=== PATIENT | female | born 1940 | race Caucasian/White ===

== ENCOUNTER 2019-06-07 08:05 | Outpatient (RCR) | payer MEDICARE, OTHER, SELFPAY ==
[2019-06-07 16:01] LABS: Basophils % 0.4 %; Eosinophils # 0.5 10^3/uL (0.0-0.8); Eosinophils % 5.5 %; Hemoglobin 11.3 g/dL (11.5-15.3); Lymphocytes # 2.5 10^3/uL (0.8-4.8); Lymphocytes % 27.7 %; Mean Corpuscular HGB Conc 31.4 g/dL (30.0-36.0); Mean Corpuscular Hemoglobin 27.9 pg (28.0-34.0); Mean Corpuscular Volume 88.9 fL (81-99); Mean Platelet Volume 11.3 fL (7.4-10.4); Monocytes # 0.8 10^3/uL (0.2-0.9); Monocytes % 8.9 %; Neutrophils % 56.3 %; Nucleated Red Blood Cells % 0 %; Platelet Count 250 10^3/cmm (130-400); Red Blood Count 4.05 10^6/uL (4.1-5.3); Red Cell Distribution Width 13.8 % (12.1-15.1); White Blood Count 8.9 10^3/uL (4.0-10.0)
[2019-06-07 22:49] LABS: Alanine Aminotransferase 17 U/L (0-33); Albumin Level 3.9 g/dL (3.5-5.2); Alkaline Phosphatase 60 IU/L (35-105); Aspartate Amino Transferase 23 U/L (0-32); Blood Urea Nitrogen 14 mg/dL (8-23); Calcium 9.7 mg/Dl (8.8-10.2); Carbon Dioxide 25 mmol/L (22-29); Chloride 98 mmol/L (98-107); Globulin 3.5 g/dL (1.3-4.6); Glucose 234 mg/dL (74-106); Sodium 139 mmol/L (136-145); Total Bilirubin 0.5 mg/dL (0.15-1.2); Total Protein 7.4 g/dL (6.6-8.7)
== END 2019-07-06 23:59 | disposition home or self-care (01) ==
LOC: ONCMED 08:05
PROVIDERS: Family Provider Family Medicine; PCP Family Medicine; Visit Provider Nurse Practitioner
DX: C79.51 Secondary malignant neoplasm of bone (principal); Z85.3 Personal history of malignant neoplasm of breast; I10 Essential (primary) hypertension; E11.9 Type 2 diabetes mellitus without complications; Z79.84 Long term (current) use of oral hypoglycemic drugs; Z79.818 Long term (current) use of other agents affecting estrogen receptors and estrogen levels; Z90.12 Acquired absence of left breast and nipple; Z92.3 Personal history of irradiation; Z92.21 Personal history of antineoplastic chemotherapy
CPT/HCPCS: 80053; 85025; 86300

== ENCOUNTER 2019-06-11 08:20 | Outpatient (RCR) | payer MEDICARE, OTHER, SELFPAY ==
--- NOTE | 2019-06-11 09:18 | ONC FU_ITS ---
Dr. Sales Patient Follow-Up Note Patient: Jessenia Navarro Unit #: [id number]: 1940 Dicatated By: Mo Sales M.D.Date of Visit:Jun 11, 2019 Onc Med Follow-up/Prog Note Chief Complaint: Breast cancer. History of Present Illness: This is a 78 year-old woman with metastatic breast cancer, ER/ID positive and HER-2/jesu negative. 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 Pathology at that time showed grade 2 infiltrating ductal carcinoma with the largest tumor measuring 1.3 cm. It was reported to be ER positive/ID negative and HER-2/jesu negative. There was no involvement in 16 axillary lymph nodes. She did not receive any adjuvant therapy. She had presented in March 2010 with an erythematous nodule in the upper left chest wall. Excisional biopsy did confirm metastatic adenocarcinoma consistent with metastatic breast cancer. That tumor was ER positive at 93% and ID positive at 100%. It was negative for overexpression of HER-2/jesu by IHC and by FISH. A staging PET/CT showed multiple sites of bone involvement. She was then started on hormonal therapy, initially with Aromasin. She tolerated it very poorly. As of May 2010 her treatment was changed to tamoxifen. She has had a very good response by followup bone scan. She had been tolerating very well, but in September 2013 she came in with a generalized skin eruption which clinically appeared consistent with hypersensitivity reaction to the tamoxifen, and at that point it was discontinued. As of August 2013 her hormonal treatment was changed to anastrazole. She had presented to the emergency room in December 2014 with numbness on her right side. At that time there was evidence of facial droop and she also had reported impaired speech. She had been having symptoms for several days. Her blood pressure was significantly elevated. A noncontrast head CT at that time showed no acute findings. At that time it was suspected that she had a TIA and/or possible radiculopathy. There did not appear to be any indication for hospital admission. She started amlodipine for the hypertension and she also started low-dose aspirin. I was contacted at the time, and I also did recommend that she stop the anastrozole. During follow-up the symptoms did resolve. Her subsequent evaluation included echocardiogram which showed mild diffuse hypokinesis of the septum and the anteroseptal segments, but with normal left ventricular ejection fraction at 50-55%. Carotid artery duplex showed minimal scattered plaques and intimal thickening bilaterally with no significant stenosis. MRI of the brain showed a remote lacunes in the left thalamus and left caudate nucleus with mild age-related atrophy and small vessel ischemic changes. 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 There was no evidence of metastatic disease. I had seen her for a follow-up visit in February 2015. At that point she had no residual symptoms, and she then restarted hormonal therapy with exemestane. Her other medical illnesses include hypertension and type 2 diabetes. She also has history of cardiac arrhythmia. She is a nonsmoker. INTERIM HISTORY: I had seen her for a follow-up visit on 11/14/2017. At that time she was having some new pain in her left lower back and left leg. She had attributed to a pinched nerve , but it was really not getting better. A bone scan on 11/16/2017 showed no evidence of new or progressed osseous metastatic disease. A previously described lesion in the left acetabulum appeared stable compared to 2010. She had further evaluation with MRI of the lumbar spine on 12/15/2017. It showed abnormal marrow signal throughout the thoracic and lumbar vertebral bodies but without enhancement and without associated marrow edema. As such, it appeared unlikely to be due to metastatic disease. There was no evidence of cord or nerve root compression. There were mild to moderate degenerative changes. 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 Considerations included indolent metastatic deposit or indolent primary bone neoplasm. An associated superior pubic ramus pathologic fracture was not excluded. There was no evidence of other metastatic disease on that study. Given those findings in the setting of persistent pain, she was referred to Dr. Ybarra for palliative radiation. She completed treatment to the left hip on 01/27/2018 to a total dose of 3000 cGy. She had further staging with PET/CT on 02/04/2018. It showed a solitary hypermetabolic lytic osseous lesion at the anterior left acetabulum, SUV 4.7. There were no other areas of osseous metastases and there were no soft tissue malignant lesions noted. She then began further systemic therapy with fulvestrant in combination with ribociclib. She also began monthly denosumab injections for the metastatic bone involvement. Restaging PET/CT on 08/12/2018 showed stable findings with FDG avid solitary left acetabular lesion, SUV 4.4. The appearance was unchanged from the previous study in February 2018. There were no new osseous lesions and there was no evidence of other metastatic disease. She continued treatment with fulvestrant in combination with ribociclib. At her follow-up visit in January 2019 the ribociclib and the denosumab were put on hold due to development of a skin eruption involving the lower extremities. The fulvestrant, though, was continued monthly. Her symptoms improved and she then restarted the denosumab injection. As of 04/03/2019 her CA 27.29 had declined to 18.52 U/mL. She is seen for a follow-up visit. She has been feeling good generally. She has good energy, and her activity is normal. Her appetite and taste are getting better. She has no fever, night sweats, or hot flashes. She has no shortness of breath, cough, or chest pain. She has no GI or complaints other than some urinary frequency, which also is getting better. She has no significant joint or bone pain. She has no focal neurologic symptoms. Medications: AmLODIPine Besylate 1 (5 mg) Tablet Oral daily, Aspirin 1 (325 mg) Tablet Oral daily, Atenolol 1 (50 mg) Tablet Oral daily, Ergocalciferol 1 (39046 Units) Capsule Oral q 4 weeks, GlipiZIDE 1 (5 mg) Tablet Oral b.i.d., Lasix 1.5 Tablet (of 40 mg) Oral daily, MetFORMIN HCl 2 (500 mg) Tablet Oral b.i.d. Allergies: Anastrozole, Antihistamines, Chlorpheniramine-type, IVP dye, Lincocin, Penicillins, and Tamoxifen Citrate. Review of Systems: Constitutional - She has good energy and she has normal activity. Appetite and taste are getting better. Her weight is stable. No fever, chills, hot flashes, or night sweats. ECOG score is 0, ENMT - No sinus congestion/drainage, but she does have some sneezing. Her mouth was sore, but it is better now. No sore throat or difficulty swallowing, Hematologic/Lymphatic - No abnormal bruising or bleeding, Respiratory - No shortness of breath. No cough. No pleuritic pain or hemoptysis, Cardiovascular - No angina pain. No palpitations, Gastrointestinal - No nausea or vomiting. She has occasional heartburn. No diarrhea or constipation. No blood in the stool or black stools, Genitourinary (F) - No dysuria or hematuria. She has some urinary frequency and nocturia, but it is better than it was. No urgency or incontinence, Musculoskeletal - No joint or bone pain. She still has some swelling in her legs, Integumentary - No skin complications, Neurologic - No headache or dizziness. No numbness/paresthesias or other focal neurologic symptoms, Psychiatric - No anxiety or depression. No insomnia. Vital Signs: Performed on Jun 11, 2019 08:35 Height - 66.00 in Weight - 185.4 lbs (HIGH) BSA - 1.94 sq.m BMI - 29.92 Temperature - 97.8 F (LOW) Pulse - 86 /min Respiration - 24 /min BP - 174/89 mm(hg) (HIGH) O2 Sat - 96 % Pain - 0 Physical Examination: Constitutional - She looks good generally, Eyes - Sclerae nonicteric. Conjunctivae clear, ENMT - No lesions noted in the oral cavity, Hematologic/Lymphatic - No cervical or clavicular adenopathy, Respiratory - Lungs are clear with good air movement bilaterally, Cardiovascular - Heart rhythm is regular. There is no murmur, gallop, or rub noted, Breasts - The right breast shows no mass. There are no lesions noted in the left chest wall. There is no axillary adenopathy, Abdomen - Soft. Liver and spleen are not enlarged. There is no abdominal mass or ascites noted and there is no inguinal adenopathy, Extremities - Mild lower extremity edema with some erythema in the lower legs, worse on the left, Neurologic - No focal neurologic deficits noted. Lab/Imaging: Test performed on Jun 06, 2019 08:55 Glucose 234 mg/dL BUN 14 mg/dL Creatinine 0.7 mg/dL Cr Clearance (Est) 87.94 mL/min Sodium 139 mmol/L Potassium 4 mmol/L Chloride 98 mmol/L CO2 25 mmol/L Calcium 9.7 mg/dL Protein, Total 7.4 g/dL Albumin 3.9 g/dL Globulin 3.5 g/dL Bilirubin, Total 0.5 mg/dL Alkaline Phosphatase 60 IU/L AST (SGOT) 23 IU/L ALT (SGPT) 17 IU/L WBC 8.9 10^9/L RBC 4.05 10^12/L HGB 11.3 g/dL HCT 36 % MCV 88.9 fl MCH 27.9 pg MCHC 31.4 g/dL RDW 13.8 % Platelet Count 250 10^9/L MPV 11.3 fL Neutrophils (Gran) 5 10^9/L Lymphocytes 2.5 10^9/L Monocytes 0.8 10^9/L Eosinophils 0.5 10^9/L Basophils 0.0 10^9/L Manual Segs 56.3 % Manual Lymphocytes 27.7 % Manual Monocytes 8.9 % Manual Eosinophils 5.5 % Manual Basophils 0.4 % Impression: 1. Patient with metastatic breast cancer, ER/ID positive and HER-2/jesu negative. She had local recurrence in the chest wall in March 2010, confirmed by biopsy. At that time there were multiple sites of bone involvement by PET/CT. She had a very good clinical response to treatment with tamoxifen, but it was stopped in September 2013 due to a hypersensitivity reaction. 2. She subsequently changed hormonal therapy to anastrozole. She had then done well until December 2014 when she presented to the emergency room with neurologic symptoms which included numbness in both hands, the right leg, and her tongue. She did report having headache at that time, and her blood pressure was significantly elevated. TIA was suspected, though her subsequent evaluation was unremarkable, and I really felt that the symptoms were more likely due to anastrozole. She did stop the medication at that time, and the symptoms completely resolved. 3. As of February 2015 she restarted hormonal therapy with exemestane. She tolerated it with no adverse effects. Her other medical illnesses include: 4. Hypertension. 5. Type II diabetes. 6. She has a history of cardiac arrhythmia. As of her follow-up in November 2017 she reported pain in the lower back and left hip area. Her initial evaluation with bone scan and MRI of the lumbar spine did not show any obvious metastatic involvement, but MRI of the pelvis was suspicious for a left anterior acetabulum-lateral superior pubic ramus neoplastic lesion. She was referred to Dr. Ybarra, and she was given radiation to the left hip area, completed on 01/27/2018 to a total dose of 3000 cGy. She has had a good clinical response to the radiation, with complete resolution of her pain. Her staging PET/CT on 02/04/2018 showed an FDG avid solitary lytic osseous lesion at the anterior left acetabulum. There were no other areas of abnormal uptake on that study. Based on the PET/CT findings, she appeared to have a solitary metastasis involving the left acetabulum, and she completed palliative radiation to that area. She then began further systemic therapy with fulvestrant in combination with ribociclib. She also began monthly denosumab injections for the metastatic bone involvement. During follow-up she had tolerated the treatment well. Her restaging PET/CT showed stable findings in the left hip. There was no evidence of other metastatic disease. As of her follow-up visit in January 2019 the ribociclib and the denosumab were put on hold due to development of a skin eruption in the lower extremities. She did require antibiotic therapy for cellulitis, and she also required diuretic therapy for swelling, but it is now almost completely resolved. She has otherwise been stable clinically. Plan: She will continue treatment with fulvestrant, 500 mg by intramuscular injection along with monthly denosumab injections. She will be scheduled for a followup visit in 3 months. In the meantime, she is in need of post mastectomy bras and prosthesis, and those will be requested. Signed By: Mo Sales M.D. <<Signature on File>>
[2019-06-11] MEDS: fulvestrant 250 mg/5 mL Syringe 500 MG IM (09:26)
[2019-06-11] MEDS: denosumab 120 mg SDV SUBCUT (09:26)
== END 2019-07-06 23:59 | disposition home or self-care (01) ==
LOC: ONCMED 08:20
PROVIDERS: Family Provider Family Medicine; PCP Family Medicine; Visit Provider Internal Medicine Medical Oncology
DX: C79.51 Secondary malignant neoplasm of bone (principal); Z85.3 Personal history of malignant neoplasm of breast; I10 Essential (primary) hypertension; E11.9 Type 2 diabetes mellitus without complications; G89.3 Neoplasm related pain (acute) (chronic); Z17.0 Estrogen receptor positive status [ER+]; Z79.84 Long term (current) use of oral hypoglycemic drugs; Z79.818 Long term (current) use of other agents affecting estrogen receptors and estrogen levels; Z90.12 Acquired absence of left breast and nipple
CPT/HCPCS: 96372; 96402; 99214; J0897; J9395

== ENCOUNTER 2019-07-12 06:10 | Outpatient (RCR) | payer MEDICARE, OTHER, SELFPAY ==
[2019-07-12] MEDS: denosumab 120 mg SDV SUBCUT (09:05)
[2019-07-12] MEDS: fulvestrant 250 mg/5 mL Syringe 500 MG IM (09:10)
== END 2019-08-04 23:59 | disposition home or self-care (01) ==
LOC: ONCMED 06:10
PROVIDERS: Family Provider Family Medicine; PCP Family Medicine; Visit Provider Internal Medicine Medical Oncology
DX: C79.51 Secondary malignant neoplasm of bone (principal); Z79.818 Long term (current) use of other agents affecting estrogen receptors and estrogen levels; Z85.3 Personal history of malignant neoplasm of breast
CPT/HCPCS: 96372; 96402; J0897; J9395

== ENCOUNTER 2019-08-29 05:50 | Outpatient (RCR) | payer MEDICARE, OTHER, SELFPAY ==
[2019-08-10] MEDS: denosumab 120 mg SDV SUBCUT (08:35)
[2019-08-10] MEDS: fulvestrant 250 mg/5 mL Syringe 500 MG IM (08:37)
== END 2019-09-04 23:59 | disposition home or self-care (01) ==
LOC: ONCMED 05:50
PROVIDERS: Family Provider Family Medicine; PCP Family Medicine; Visit Provider Specialist
DX: C79.51 Secondary malignant neoplasm of bone (principal); C50.812 Malignant neoplasm of overlapping sites of left female breast; Z79.818 Long term (current) use of other agents affecting estrogen receptors and estrogen levels; Z79.899 Other long term (current) drug therapy
CPT/HCPCS: 96372; 96402; 99212; 99214; J0897; J9395

== ENCOUNTER 2019-09-18 06:49 | Outpatient (RCR) | payer MEDICARE, OTHER, SELFPAY ==
[2019-09-12 18:22] LABS: Basophils # 0.1 10^3/uL (0.0-0.1); Basophils % 0.5 %; Eosinophils # 0.6 10^3/uL (0.0-0.8); Hematocrit 36.8 % (37.0-47.0); Hemoglobin 11.8 g/dL (11.5-15.3); Lymphocytes % 33.2 %; Mean Corpuscular HGB Conc 32.1 g/dL (30.0-36.0); Mean Corpuscular Hemoglobin 28.9 pg (28.0-34.0); Mean Platelet Volume 11.2 fL (7.4-10.4); Monocytes # 1.3 10^3/uL (0.2-0.9); Monocytes % 10.6 %; Neutrophils % 49.8 %; Nucleated Red Blood Cells % 0 %; Platelet Count 281 10^3/cmm (130-400); Red Blood Count 4.09 10^6/uL (4.1-5.3); Red Cell Distribution Width 13.5 % (12.1-15.1)
[2019-09-12 18:49] LABS: Estmated Average Glucose 154
[2019-09-12 20:02] LABS: Alanine Aminotransferase 15 U/L (0-33); Albumin Level 4.2 g/dL (3.5-5.2); Alkaline Phosphatase 59 IU/L (35-105); Anion Gap 21.1 (5-19); Aspartate Amino Transferase 24 U/L (0-32); Blood Urea Nitrogen 15 mg/dL (8-23); Calcium 9.9 mg/dL (8.5-10.5); Carbon Dioxide 25 mmol/L (22-29); Chloride 94 mmol/L (98-107); Globulin 3.8 g/dL (1.3-4.6); Glucose 155 mg/dL (65-115); Osmolality Calculated 281 mOsm/kg (285-295); Potassium 4.1 mmol/L (3.5-5.1); Sodium 136 mmol/L (136-145); Total Bilirubin 0.5 mg/dL (0.15-1.2)
[2019-09-13] MEDS: denosumab 120 mg SDV SUBCUT (10:30)
[2019-09-13] MEDS: fulvestrant 250 mg/5 mL Syringe 500 MG IM (10:35)
--- NOTE | 2019-09-13 13:02 | ONC FU_ITS ---
Dr. Sales Patient Follow-Up Note Patient: Jessenia Navarro Unit #: [id number]: [id number] Dicatated By: Mo Sales M.D.Date of Visit:Sep 13, 2019 Onc Med Follow-up/Prog Note Chief Complaint: Breast cancer. History of Present Illness: This is a 78 year-old woman with metastatic breast cancer, ER/CA positive and HER-2/jesu negative. 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 Pathology at that time showed grade 2 infiltrating ductal carcinoma with the largest tumor measuring 1.3 cm. It was reported to be ER positive/CA negative and HER-2/jesu negative. There was no involvement in 16 axillary lymph nodes. She did not receive any adjuvant therapy. She had presented in March 2010 with an erythematous nodule in the upper left chest wall. Excisional biopsy did confirm metastatic adenocarcinoma consistent with metastatic breast cancer. That tumor was ER positive at 93% and CA positive at 100%. It was negative for overexpression of HER-2/jesu by IHC and by FISH. A staging PET/CT showed multiple sites of bone involvement. She was then started on hormonal therapy, initially with Aromasin. She tolerated it very poorly. As of May 2010 her treatment was changed to tamoxifen. She has had a very good response by followup bone scan. She had been tolerating very well, but in September 2013 she came in with a generalized skin eruption which clinically appeared consistent with hypersensitivity reaction to the tamoxifen, and at that point it was discontinued. As of August 2013 her hormonal treatment was changed to anastrazole. She had presented to the emergency room in December 2014 with numbness on her right side. At that time there was evidence of facial droop and she also had reported impaired speech. She had been having symptoms for several days. Her blood pressure was significantly elevated. A noncontrast head CT at that time showed no acute findings. At that time it was suspected that she had a TIA and/or possible radiculopathy. There did not appear to be any indication for hospital admission. She started amlodipine for the hypertension and she also started low-dose aspirin. I was contacted at the time, and I also did recommend that she stop the anastrozole. During follow-up the symptoms did resolve. Her subsequent evaluation included echocardiogram which showed mild diffuse hypokinesis of the septum and the anteroseptal segments, but with normal left ventricular ejection fraction at 50-55%. Carotid artery duplex showed minimal scattered plaques and intimal thickening bilaterally with no significant stenosis. MRI of the brain showed a remote lacunes in the left thalamus and left caudate nucleus with mild age-related atrophy and small vessel ischemic changes. 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 There was no evidence of metastatic disease. I had seen her for a follow-up visit in February 2015. At that point she had no residual symptoms, and she then restarted hormonal therapy with exemestane. Her other medical illnesses include hypertension and type 2 diabetes. She also has history of cardiac arrhythmia. She is a nonsmoker. INTERIM HISTORY: I had seen her for a follow-up visit on 11/14/2017. At that time she was having some new pain in her left lower back and left leg. She had attributed to a pinched nerve , but it was really not getting better. A bone scan on 11/16/2017 showed no evidence of new or progressed osseous metastatic disease. A previously described lesion in the left acetabulum appeared stable compared to 2010. She had further evaluation with MRI of the lumbar spine on 12/15/2017. It showed abnormal marrow signal throughout the thoracic and lumbar vertebral bodies but without enhancement and without associated marrow edema. As such, it appeared unlikely to be due to metastatic disease. There was no evidence of cord or nerve root compression. There were mild to moderate degenerative changes. 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 Considerations included indolent metastatic deposit or indolent primary bone neoplasm. An associated superior pubic ramus pathologic fracture was not excluded. There was no evidence of other metastatic disease on that study. Given those findings in the setting of persistent pain, she was referred to Dr. Ybarra for palliative radiation. She completed treatment to the left hip on 01/27/2018 to a total dose of 3000 cGy. She had further staging with PET/CT on 02/04/2018. It showed a solitary hypermetabolic lytic osseous lesion at the anterior left acetabulum, SUV 4.7. There were no other areas of osseous metastases and there were no soft tissue malignant lesions noted. She then began further systemic therapy with fulvestrant in combination with ribociclib. She also began monthly denosumab injections for the metastatic bone involvement. Restaging PET/CT on 08/12/2018 showed stable findings with FDG avid solitary left acetabular lesion, SUV 4.4. The appearance was unchanged from the previous study in February 2018. There were no new osseous lesions and there was no evidence of other metastatic disease. She continued treatment with fulvestrant in combination with ribociclib. At her follow-up visit in January 2019 the ribociclib and the denosumab were put on hold due to development of a skin eruption involving the lower extremities. The fulvestrant, though, was continued monthly. Her symptoms improved and she then restarted the denosumab injection. As of 04/03/2019 her CA 27.29 had declined to 18.52 U/mL. She is seen for a follow-up visit. She has been feeling good generally. She has good energy and activity tolerance. Her ECOG score is 0. She has good appetite. She has no fever, night sweats, or hot flashes. She has no shortness of breath, cough, or chest pain. She currently has no GI or complaints. She has no significant joint or bone pain. She has been able to manage her lower extremity edema adequately with support hose. She has no focal neurologic symptoms. Medications: AmLODIPine Besylate 1 (5 mg) Tablet Oral daily, Aspirin 1 (325 mg) Tablet Oral daily, Atenolol 1 (50 mg) Tablet Oral daily, Ergocalciferol 1 (93978 Units) Capsule Oral q 4 weeks, GlipiZIDE 1 (5 mg) Tablet Oral b.i.d., Lasix 1.5 Tablet (of 40 mg) Oral daily, MetFORMIN HCl 2 (500 mg) Tablet Oral b.i.d. Allergies: Anastrozole, Antihistamines, Chlorpheniramine-type, IVP dye, Lincocin, Penicillins, and Tamoxifen Citrate. Review of Systems: Constitutional - She feels good. She has normal activity. Her appetite is good. Her weight is down 5 pounds from last visit. No fever, chills, hot flashes, or night sweats. ECOG score is 0, ENMT - No sinus congestion/drainage. No mouth sores. No sore throat or difficulty swallowing, Hematologic/Lymphatic - No abnormal bruising or bleeding, Respiratory - No shortness of breath. No cough. No pleuritic pain or hemoptysis, Cardiovascular - No angina pain. No palpitations, Gastrointestinal - No nausea or vomiting. No heartburn or acid reflux. No diarrhea or constipation. No blood in the stool or black stools, Genitourinary (F) - No dysuria or hematuria. No urinary frequency. No urgency or incontinence, Musculoskeletal - No joint or bone pain, Integumentary - No skin complications, Neurologic - No headache or dizziness. No numbness/paresthesias or other focal neurologic symptoms, Psychiatric - No anxiety or depression. No insomnia. Vital Signs: Performed on Sep 13, 2019 10:02 Height - 66.00 in Weight - 180.4 lbs (LOW) BSA - 1.91 sq.m BMI - 29.12 Temperature - 97.6 F (LOW) Pulse - 75 /min Respiration - 22 /min BP - 144/70 mm(hg) (HIGH) O2 Sat - 97 % Pain - 0 Physical Examination: Constitutional - She looks good generally, Eyes - Sclerae nonicteric. Conjunctivae clear, ENMT - No lesions noted in the oral cavity, Hematologic/Lymphatic - No cervical or clavicular adenopathy, Respiratory - Lungs are clear with good air movement bilaterally, Cardiovascular - Heart rhythm is irregular. The rate is controlled. There is no murmur, gallop, or rub noted, Breasts - There are no lesions noted in the left chest wall. There is no axillary adenopathy noted, Abdomen - Soft. Liver and spleen are not enlarged. There is no abdominal mass or ascites noted and there is no inguinal adenopathy, Extremities - Slight edema, Neurologic - No focal neurologic deficits noted. Lab/Imaging: CBC shows hemoglobin 11.8 g, white blood cell count 12,000, and platelet count 281,000. Comprehensive metabolic profile is unremarkable. Her hemoglobin A1c level is 7.0%. The CA-27-29 level is pending. Impression: 1. Patient with metastatic breast cancer, ER/CA positive and HER-2/jesu negative. She had local recurrence in the chest wall in March 2010, confirmed by biopsy. At that time there were multiple sites of bone involvement by PET/CT. She had a very good clinical response to treatment with tamoxifen, but it was stopped in September 2013 due to a hypersensitivity reaction. 2. She subsequently changed hormonal therapy to anastrozole. She had then done well until December 2014 when she presented to the emergency room with neurologic symptoms which included numbness in both hands, the right leg, and her tongue. She did report having headache at that time, and her blood pressure was significantly elevated. TIA was suspected, though her subsequent evaluation was unremarkable, and I really felt that the symptoms were more likely due to anastrozole. She did stop the medication at that time, and the symptoms completely resolved. 3. As of February 2015 she restarted hormonal therapy with exemestane. She tolerated it with no adverse effects. Her other medical illnesses include: 4. Hypertension. 5. Type II diabetes. 6. She has a history of cardiac arrhythmia. As of her follow-up in November 2017 she reported pain in the lower back and left hip area. Her initial evaluation with bone scan and MRI of the lumbar spine did not show any obvious metastatic involvement, but MRI of the pelvis was suspicious for a left anterior acetabulum-lateral superior pubic ramus neoplastic lesion. She was referred to Dr. Ybarra, and she was given radiation to the left hip area, completed on 01/27/2018 to a total dose of 3000 cGy. She has had a good clinical response to the radiation, with complete resolution of her pain. Her staging PET/CT on 02/04/2018 showed an FDG avid solitary lytic osseous lesion at the anterior left acetabulum. There were no other areas of abnormal uptake on that study. Based on the PET/CT findings, she appeared to have a solitary metastasis involving the left acetabulum, and she completed palliative radiation to that area. She then began further systemic therapy with fulvestrant in combination with ribociclib. She also began monthly denosumab injections for the metastatic bone involvement. Her restaging PET/CT in August 2018 showed stable findings in the left hip. There was no evidence of other metastatic disease. As of her follow-up visit in January 2019 the ribociclib and the denosumab were put on hold due to development of a skin eruption in the lower extremities. She did require antibiotic therapy for cellulitis, and she also required diuretic therapy for swelling, but it gradually resolved. She had otherwise been stable clinically. She then continued treatment with fulvestrant 500 mg by intramuscular injection monthly together with denosumab injections for the metastatic bone involvement. The ribociclib remained on hold. During follow-up she has been doing well. She is continued to show gradual improvement in her clinical status. She has tolerated the treatment well. Thus far there has been no evidence of recurrence/progression of the breast cancer. Plan: She will continue treatment with fulvestrant, 500 mg by intramuscular injection together with denosumab 120 mg by subcutaneous injection for the metastatic bone involvement. She will return monthly for her injections. She will be scheduled for a followup visit in 3 months. Signed By: Mo Sales M.D. <<Signature on File>>
[2019-09-14 06:06] LABS: CA 27.29 17 U/mL (<38)
== END 2019-10-04 23:59 | disposition home or self-care (01) ==
LOC: ONCMED 06:49
PROVIDERS: Specialist; Family Provider Family Medicine; PCP Family Medicine; Visit Provider Radiology Radiation Oncology
DX: C50.812 Malignant neoplasm of overlapping sites of left female breast (principal); Z17.0 Estrogen receptor positive status [ER+]; C79.51 Secondary malignant neoplasm of bone; I10 Essential (primary) hypertension; E11.9 Type 2 diabetes mellitus without complications; I49.9 Cardiac arrhythmia, unspecified; Z79.818 Long term (current) use of other agents affecting estrogen receptors and estrogen levels; Z79.899 Other long term (current) drug therapy
CPT/HCPCS: 36415; 80053; 83036; 85025; 86300; 96372; 96402; 99214; J0897; J9395

== ENCOUNTER 2019-10-15 07:04 | Outpatient (RCR) | payer MEDICARE, OTHER, SELFPAY ==
[2019-10-15] MEDS: fulvestrant 250 mg/5 mL Syringe 500 MG IM (08:30)
[2019-10-15] MEDS: denosumab 120 mg SDV SUBCUT (08:35)
== END 2019-11-04 23:59 | disposition home or self-care (01) ==
LOC: ONCMED 07:04
PROVIDERS: PCP Family Medicine; Visit Provider Internal Medicine Medical Oncology
DX: C50.812 Malignant neoplasm of overlapping sites of left female breast (principal); Z17.0 Estrogen receptor positive status [ER+]; C79.51 Secondary malignant neoplasm of bone; I10 Essential (primary) hypertension; E11.9 Type 2 diabetes mellitus without complications; I49.9 Cardiac arrhythmia, unspecified; Z79.818 Long term (current) use of other agents affecting estrogen receptors and estrogen levels; Z79.899 Other long term (current) drug therapy
CPT/HCPCS: 96372; 96402; J0897; J9395

== ENCOUNTER 2019-11-15 07:03 | Outpatient (RCR) | payer MEDICARE, OTHER, SELFPAY ==
[2019-11-15] MEDS: fulvestrant 250 mg/5 mL Syringe 500 MG IM (08:15)
[2019-11-15] MEDS: denosumab 120 mg SDV SUBCUT (08:20)
== END 2019-12-04 23:59 | disposition home or self-care (01) ==
LOC: ONCMED 07:03
PROVIDERS: PCP Family Medicine; Visit Provider Internal Medicine Medical Oncology
DX: C50.812 Malignant neoplasm of overlapping sites of left female breast (principal); Z17.0 Estrogen receptor positive status [ER+]; C79.51 Secondary malignant neoplasm of bone; R60.0 Localized edema; I10 Essential (primary) hypertension; M19.90 Unspecified osteoarthritis, unspecified site; E11.9 Type 2 diabetes mellitus without complications; N32.81 Overactive bladder; Z79.811 Long term (current) use of aromatase inhibitors
CPT/HCPCS: 96372; 96402; J0897; J9395

== ENCOUNTER 2019-12-17 07:10 | Outpatient (RCR) | payer MEDICARE, OTHER, SELFPAY ==
[2019-12-14 14:39] LABS: Basophils # 0.1 10^3/uL (0.0-0.1); Basophils % 0.5 %; Eosinophils # 0.6 10^3/uL (0.0-0.8); Eosinophils % 4.7 %; Hematocrit 38.2 % (37.0-47.0); Hemoglobin 12.4 g/dL (11.5-15.3); Lymphocytes # 3.8 10^3/uL (0.8-4.8); Lymphocytes % 31.2 %; Mean Corpuscular HGB Conc 32.5 g/dL (30.0-36.0); Mean Corpuscular Hemoglobin 29.2 pg (28.0-34.0); Mean Corpuscular Volume 90.1 fL (81-99); Mean Platelet Volume 10.9 fL (7.4-10.4); Monocytes # 1.1 10^3/uL (0.2-0.9); Neutrophils # 6.42 10^3/uL (1.8-7.7); Neutrophils % 53.4 %; Nucleated Red Blood Cells % 0 %; Platelet Count 300 10^3/cmm (130-400); Red Blood Count 4.24 10^6/uL (4.1-5.3); Red Cell Distribution Width 13.2 % (12.1-15.1)
[2019-12-14 15:06] LABS: Alanine Aminotransferase 20 U/L (0-33); Albumin Level 4.3 g/dL (3.5-5.2); Alkaline Phosphatase 74 IU/L (35-105); Aspartate Amino Transferase 25 U/L (0-32); Blood Urea Nitrogen 16 mg/dL (8-23); Calcium 9.8 mg/dL (8.5-10.5); Carbon Dioxide 27 mmol/L (22-29); Chloride 97 mmol/L (98-107); Globulin 3.9 g/dL (1.3-4.6); Glucose 104 mg/dL (65-115); Osmolality Calculated 287 mOsm/kg (285-295); Sodium 140 mmol/L (136-145); Total Bilirubin 0.4 mg/dL (0.15-1.2); Total Protein 8.2 g/dL (6.6-8.7)
[2019-12-14 16:19] LABS: Anion Gap 21.3 (5-19); Potassium 4.3 mmol/L (3.5-5.1)
[2019-12-14 17:27] LABS: Estmated Average Glucose 166; Hemoglobin A1C 7.4 % (4.0-6.0)
[2019-12-15 10:20] LABS: CA 27.29 38 U/mL (<38)
[2019-12-17] MEDS: fulvestrant 250 mg/5 mL Syringe 500 MG IM (10:30)
[2019-12-17] MEDS: denosumab 120 mg SDV SUBCUT (10:31)
--- NOTE | 2019-12-21 07:49 | ONC FU_ITS ---
Dr. Sales Patient Follow-Up Note Patient: Jessenia Navarro Unit #: [id number]: [id number] Dicatated By: Mo Sales M.D.Date of Visit:Dec 17, 2019 Onc Med Follow-up/Prog Note Chief Complaint: Breast cancer. History of Present Illness: This is a 79 year-old woman with metastatic breast cancer, ER/MD positive and HER-2/jesu negative. 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 Pathology at that time showed grade 2 infiltrating ductal carcinoma with the largest tumor measuring 1.3 cm. It was reported to be ER positive/MD negative and HER-2/jesu negative. There was no involvement in 16 axillary lymph nodes. She did not receive any adjuvant therapy. She had presented in March 2010 with an erythematous nodule in the upper left chest wall. Excisional biopsy did confirm metastatic adenocarcinoma consistent with metastatic breast cancer. That tumor was ER positive at 93% and MD positive at 100%. It was negative for overexpression of HER-2/jesu by IHC and by FISH. A staging PET/CT showed multiple sites of bone involvement. She was then started on hormonal therapy, initially with Aromasin. She tolerated it very poorly. As of May 2010 her treatment was changed to tamoxifen. She has had a very good response by followup bone scan. She had been tolerating very well, but in September 2013 she came in with a generalized skin eruption which clinically appeared consistent with hypersensitivity reaction to the tamoxifen, and at that point it was discontinued. As of August 2013 her hormonal treatment was changed to anastrazole. She had presented to the emergency room in December 2014 with numbness on her right side. At that time there was evidence of facial droop and she also had reported impaired speech. She had been having symptoms for several days. Her blood pressure was significantly elevated. A noncontrast head CT at that time showed no acute findings. At that time it was suspected that she had a TIA and/or possible radiculopathy. There did not appear to be any indication for hospital admission. She started amlodipine for the hypertension and she also started low-dose aspirin. I was contacted at the time, and I also did recommend that she stop the anastrozole. During follow-up the symptoms did resolve. Her subsequent evaluation included echocardiogram which showed mild diffuse hypokinesis of the septum and the anteroseptal segments, but with normal left ventricular ejection fraction at 50-55%. Carotid artery duplex showed minimal scattered plaques and intimal thickening bilaterally with no significant stenosis. MRI of the brain showed a remote lacunes in the left thalamus and left caudate nucleus with mild age-related atrophy and small vessel ischemic changes. 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 There was no evidence of metastatic disease. I had seen her for a follow-up visit in February 2015. At that point she had no residual symptoms, and she then restarted hormonal therapy with exemestane. Her other medical illnesses include hypertension and type 2 diabetes. She also has history of cardiac arrhythmia. She is a nonsmoker. INTERIM HISTORY: I had seen her for a follow-up visit on 11/14/2017. At that time she was having some new pain in her left lower back and left leg. She had attributed to a pinched nerve , but it was really not getting better. A bone scan on 11/16/2017 showed no evidence of new or progressed osseous metastatic disease. A previously described lesion in the left acetabulum appeared stable compared to 2010. She had further evaluation with MRI of the lumbar spine on 12/15/2017. It showed abnormal marrow signal throughout the thoracic and lumbar vertebral bodies but without enhancement and without associated marrow edema. As such, it appeared unlikely to be due to metastatic disease. There was no evidence of cord or nerve root compression. There were mild to moderate degenerative changes. 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 Considerations included indolent metastatic deposit or indolent primary bone neoplasm. An associated superior pubic ramus pathologic fracture was not excluded. There was no evidence of other metastatic disease on that study. Given those findings in the setting of persistent pain, she was referred to Dr. Ybarra for palliative radiation. She completed treatment to the left hip on 01/27/2018 to a total dose of 3000 cGy. She had further staging with PET/CT on 02/04/2018. It showed a solitary hypermetabolic lytic osseous lesion at the anterior left acetabulum, SUV 4.7. There were no other areas of osseous metastases and there were no soft tissue malignant lesions noted. She then began further systemic therapy with fulvestrant in combination with ribociclib. She also began monthly denosumab injections for the metastatic bone involvement. Restaging PET/CT on 08/12/2018 showed stable findings with FDG avid solitary left acetabular lesion, SUV 4.4. The appearance was unchanged from the previous study in February 2018. There were no new osseous lesions and there was no evidence of other metastatic disease. She continued treatment with fulvestrant in combination with ribociclib. At her follow-up visit in January 2019 the ribociclib and the denosumab were put on hold due to development of a skin eruption involving the lower extremities. The fulvestrant, though, was continued monthly. Her symptoms improved and she then restarted the denosumab injections. As of 04/03/2019 her CA 27.29 had declined to 18.52 U/mL. She is seen for a follow-up visit. She has been feeling good generally. She has good energy and she has normal activity. ECOG score is 0. Her appetite is good. She has no fever, night sweats, or hot flashes. She has no shortness of breath, cough, or chest pain. She has no GI/ complaints other than occasional heartburn. She has a little stiffness when she first gets up in the morning and when she first gets up from sitting. She has no significant joint or bone pain. She has no focal neurologic symptoms. Medications: AmLODIPine Besylate 1 (5 mg) Tablet Oral daily, Aspirin 1 (325 mg) Tablet Oral daily, Atenolol 1 (50 mg) Tablet Oral daily, Ergocalciferol 1 (68635 Units) Capsule Oral q 4 weeks, GlipiZIDE 1 (5 mg) Tablet Oral b.i.d., Lasix 1 Tablet (of 40 mg) Oral daily, MetFORMIN HCl 2 (500 mg) Tablet Oral b.i.d. Allergies: Anastrozole, Antihistamines, Chlorpheniramine-type, IVP dye, Lincocin, Penicillins, and Tamoxifen Citrate. Review of Systems: Constitutional - She has been feeling good generally. She has good energy and she has normal activity. Appetite is good and weight is stable. No fever, night sweats, or hot flashes. ECOG score 0, ENMT - No sinus congestion/drainage. No mouth sores. No sore throat or difficulty swallowing, Hematologic/Lymphatic - No abnormal bruising or bleeding, Respiratory - No shortness of breath. No cough. No pleuritic pain or hemoptysis, Cardiovascular - No angina pain. No palpitations, Gastrointestinal - No nausea or vomiting. She has occasional heartburn, depending on what she eats. No diarrhea or constipation. No blood in the stool or black stools, Genitourinary (F) - No dysuria or hematuria. No urinary frequency. No urgency or incontinence, Musculoskeletal - She has a little bit of stiffness when she first gets up in the morning or when she first gets up from sitting. She does not have any significant joint or bone pain, Integumentary - No skin rash, Neurologic - No headache or dizziness. No numbness or tingling. No other focal neurologic symptoms, Psychiatric - No anxiety or depression. No insomnia. Vital Signs: Performed on Dec 17, 2019 09:39 Height - 66.00 in Weight - 177.6 lbs (LOW) BSA - 1.90 sq.m BMI - 28.67 Temperature - 97.7 F (LOW) Pulse - 79 /min Respiration - 18 /min BP - 151/78 mm(hg) (HIGH) O2 Sat - 100 % Pain - 0 Physical Examination: Constitutional - She looks good generally, Eyes - Sclerae nonicteric. Conjunctivae clear, ENMT - No lesions noted in the oral cavity, Hematologic/Lymphatic - No cervical or clavicular adenopathy, Respiratory - Lungs are clear with good air movement bilaterally, Cardiovascular - Heart rhythm is irregular. The rate is controlled. There is no murmur, gallop, or rub noted, Abdomen - Soft. Liver and spleen are not enlarged. There is no abdominal mass or ascites noted and there is no inguinal adenopathy, Extremities - Mild lower extremity edema. Dorsalis pedis pulses are palpable bilaterally, Integumentary - No skin eruption, Neurologic - No focal neurologic deficits noted. Lab/Imaging: Test performed on Dec 14, 2019 12:53 Sodium 140 mmol/L Potassium 4.3 mmol/L Chloride 97 mmol/L CO2 27 mmol/L Anion Gap 21.3 BUN 16 mg/dL Creatinine 0.7 mg/dL Cr Clearance (Est) 84.1800 mL/min Glucose 104 mg/dL Calcium 9.8 mg/dL Protein, Total 8.2 g/dL Albumin 4.3 g/dL Globulin 3.9 g/dL Bilirubin, Total 0.4 mg/dL ALT (SGPT) 20 U/L AST (SGOT) 25 U/L Alkaline Phosphatase 74 IU/L Hemoglobin A1C % 7.4 % WBC 12.0 10 3/uL RBC 4.24 10 6/uL HGB 12.4 g/dL HCT 38.2 % MCV 90.1 fL MCH 29.2 pg MCHC 32.5 g/dL RDW 13.2 % Platelet Count 300 10 3/cmm MPV 10.9 fL Neutrophils 6.42 10 3/uL Lymphocytes 3.8 10 3/uL Monocytes 1.1 10 3/uL Eosinophils 0.6 10 3/uL Basophils 0.1 10 3/uL Neutrophil % 53.4 % Lymphocyte % 31.2 % Monocyte % 9.0 % Eosinophil % 4.7 % Basophils % 0.5 % NRBC % 0 % Impression: 1. Patient with metastatic breast cancer, ER/MD positive and HER-2/jesu negative. She had local recurrence in the chest wall in March 2010, confirmed by biopsy. At that time there were multiple sites of bone involvement by PET/CT. She had a very good clinical response to treatment with tamoxifen, but it was stopped in September 2013 due to a hypersensitivity reaction. 2. She subsequently changed hormonal therapy to anastrozole. She had then done well until December 2014 when she presented to the emergency room with neurologic symptoms which included numbness in both hands, the right leg, and her tongue. She did report having headache at that time, and her blood pressure was significantly elevated. TIA was suspected, though her subsequent evaluation was unremarkable, and I really felt that the symptoms were more likely due to anastrozole. She did stop the medication at that time, and the symptoms completely resolved. 3. As of February 2015 she restarted hormonal therapy with exemestane. She tolerated it with no adverse effects. Her other medical illnesses include: 4. Hypertension. 5. Type II diabetes. 6. She has a history of cardiac arrhythmia. As of her follow-up in November 2017 she reported pain in the lower back and left hip area. Her initial evaluation with bone scan and MRI of the lumbar spine did not show any obvious metastatic involvement, but MRI of the pelvis was suspicious for a left anterior acetabulum-lateral superior pubic ramus neoplastic lesion. She was referred to Dr. Ybarra, and she was given radiation to the left hip area, completed on 01/27/2018 to a total dose of 3000 cGy. She has had a good clinical response to the radiation, with complete resolution of her pain. Her staging PET/CT on 02/04/2018 showed an FDG avid solitary lytic osseous lesion at the anterior left acetabulum. There were no other areas of abnormal uptake on that study. Based on the PET/CT findings, she appeared to have a solitary metastasis involving the left acetabulum, and she completed palliative radiation to that area. She then began further systemic therapy with fulvestrant in combination with ribociclib. She also began monthly denosumab injections for the metastatic bone involvement. Her restaging PET/CT in August 2018 showed stable findings in the left hip. There was no evidence of other metastatic disease. As of her follow-up visit in January 2019 the ribociclib and the denosumab were put on hold due to development of a skin eruption in the lower extremities. She did require antibiotic therapy for cellulitis, and she also required diuretic therapy for swelling, but it gradually resolved. She had otherwise been stable clinically. She then continued treatment with fulvestrant 500 mg by intramuscular injection monthly together with denosumab injections for the metastatic bone involvement. The ribociclib remained on hold. During follow-up she has been doing well with gradual improvement in her clinical status. She has been tolerating treatment well since stopping the ribociclib. She has had a very good clinical response, thus far with no evidence of disease progression. Plan: She will continue treatment with fulvestrant 500 mg by intramuscular injection monthly for the breast cancer together with denosumab 120 mg by subcutaneous injection monthly for the metastatic bone involvement. She will be scheduled for a followup visit in 3 months. Signed By: Mo Sales M.D. <<Signature on File>>
== END 2020-01-04 23:59 | disposition home or self-care (01) ==
LOC: ONCMED 07:10
PROVIDERS: PCP Family Medicine; Visit Provider Internal Medicine Medical Oncology
DX: C79.51 Secondary malignant neoplasm of bone (principal); Z85.3 Personal history of malignant neoplasm of breast; I10 Essential (primary) hypertension; E11.9 Type 2 diabetes mellitus without complications; Z17.0 Estrogen receptor positive status [ER+]; Z79.84 Long term (current) use of oral hypoglycemic drugs; Z79.899 Other long term (current) drug therapy; Z79.818 Long term (current) use of other agents affecting estrogen receptors and estrogen levels; Z92.23 Personal history of estrogen therapy
CPT/HCPCS: 80053; 83036; 85025; 86300; 96372; 96402; 99214; J0897; J9395

== ENCOUNTER 2020-01-17 06:02 | Outpatient (RCR) | payer MEDICARE, OTHER, SELFPAY ==
[2020-01-17] MEDS: denosumab 120 mg SDV SUBCUT (08:37)
[2020-01-17] MEDS: fulvestrant 250 mg/5 mL Syringe 500 MG IM (08:40)
== END 2020-02-04 23:59 | disposition home or self-care (01) ==
LOC: ONCMED 06:02
PROVIDERS: PCP Family Medicine; Visit Provider Internal Medicine Medical Oncology
DX: Z51.11 Encounter for antineoplastic chemotherapy (principal); C50.812 Malignant neoplasm of overlapping sites of left female breast; C50.811 Malignant neoplasm of overlapping sites of right female breast; Z17.0 Estrogen receptor positive status [ER+]; I10 Essential (primary) hypertension; E11.9 Type 2 diabetes mellitus without complications; I49.8 Other specified cardiac arrhythmias; Z79.818 Long term (current) use of other agents affecting estrogen receptors and estrogen levels
CPT/HCPCS: 96372; 96402; J0897; J9395

== ENCOUNTER 2020-02-18 05:58 | Outpatient (CLI) | payer MEDICARE, OTHER, SELFPAY ==
[2020-02-18] MEDS: denosumab 120 mg SDV SUBCUT (13:50)
[2020-02-18] MEDS: fulvestrant 250 mg/5 mL Syringe 500 MG IM (13:50)
== END 2020-02-18 05:59 | disposition home or self-care (01) ==
LOC: ONCMED 06:00
PROVIDERS: PCP Family Medicine; Visit Provider Internal Medicine Medical Oncology
DX: C50.812 Malignant neoplasm of overlapping sites of left female breast (principal); C79.51 Secondary malignant neoplasm of bone; Z79.818 Long term (current) use of other agents affecting estrogen receptors and estrogen levels; Z17.0 Estrogen receptor positive status [ER+]
CPT/HCPCS: 96372; 96402; J0897; J9395

== ENCOUNTER 2020-03-18 10:05 | Outpatient (CLI) | payer MEDICARE, OTHER, SELFPAY ==
[2020-03-18 12:12] LABS: Basophils % 0.3 %; Eosinophils # 0.6 10^3/uL (0.0-0.8); Eosinophils % 5.1 %; Estmated Average Glucose 143; Hematocrit 38.5 % (37.0-47.0); Hemoglobin 12.3 g/dL (11.5-15.3); Hemoglobin A1C 6.6 % (4.0-6.0); Lymphocytes # 3.6 10^3/uL (0.8-4.8); Lymphocytes % 31.7 %; Mean Corpuscular HGB Conc 31.9 g/dL (30.0-36.0); Mean Corpuscular Hemoglobin 28.7 pg (28.0-34.0); Mean Corpuscular Volume 89.7 fL (81-99); Monocytes % 8.8 %; Neutrophils # 6.09 10^3/uL (1.8-7.7); Neutrophils % 53.1 %; Nucleated Red Blood Cells % 0 %; Platelet Count 285 10^3/cmm (130-400); Red Blood Count 4.29 10^6/uL (4.1-5.3); Red Cell Distribution Width 13.2 % (12.1-15.1); White Blood Count 11.5 10^3/uL (4.0-10.0)
[2020-03-18 12:23] LABS: Alanine Aminotransferase 13 U/L (0-33); Albumin Level 4.3 g/dL (3.5-5.2); Alkaline Phosphatase 68 IU/L (35-105); Anion Gap 16.4 (5-19); Aspartate Amino Transferase 16 U/L (0-32); Blood Urea Nitrogen 13 mg/dL (8-23); Calcium 9.7 mg/dL (8.5-10.5); Carbon Dioxide 25 mmol/L (22-29); Chloride 100 mmol/L (98-107); Globulin 3.2 g/dL (1.3-4.6); Glucose 194 mg/dL (65-115); Osmolality Calculated 289 mOsm/kg (285-295); Potassium 4.4 mmol/L (3.5-5.1); Sodium 137 mmol/L (136-145); Total Bilirubin 0.5 mg/dL (0.15-1.2); Total Protein 7.5 g/dL (6.6-8.7)
[2020-03-19 08:57] LABS: CA 27.29 35 U/mL (<38)
== END 2020-03-18 10:06 | disposition home or self-care (01) ==
LOC: ONCMED 12:20
PROVIDERS: PCP Family Medicine; Visit Provider Internal Medicine Medical Oncology
DX: C50.812 Malignant neoplasm of overlapping sites of left female breast (principal); E11.9 Type 2 diabetes mellitus without complications
CPT/HCPCS: 36415; 80053; 83036; 85025; 86300

== ENCOUNTER 2020-03-19 05:50 | Outpatient (CLI) | payer MEDICARE, OTHER, SELFPAY ==
[2020-03-19] MEDS: denosumab 120 mg SDV SUBCUT (09:51)
[2020-03-19] MEDS: fulvestrant 250 mg/5 mL Syringe 500 MG IM (09:54)
--- NOTE | 2020-03-23 20:55 | ONC FU_ITS ---
[facility] Patient Note Patient: Jessenia Navarro Unit #: [id number]: 1940 Dictated By: Christine VelazquezDate of Visit: Mar 19, 2020 Onc MED Follow-Up/Prog Note Chief Complaint: Breast cancer. History of Present Illness: Ms Navarro is a 79 year-old woman with metastatic breast cancer, ER/MI positive and HER-2/jesu negative. 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 Pathology at that time showed grade 2 infiltrating ductal carcinoma with the largest tumor measuring 1.3 cm. It was reported to be ER positive/MI negative and HER-2/jesu negative. There was no involvement in 16 axillary lymph nodes. She did not receive any adjuvant therapy. She had presented in March 2010 with an erythematous nodule in the upper left chest wall. Excisional biopsy did confirm metastatic adenocarcinoma consistent with metastatic breast cancer. That tumor was ER positive at 93% and MI positive at 100%. It was negative for overexpression of HER-2/jesu by IHC and by FISH. A staging PET/CT showed multiple sites of bone involvement. She was then started on hormonal therapy, initially with Aromasin. She tolerated it very poorly. As of May 2010 her treatment was changed to tamoxifen. She has had a very good response by followup bone scan. She had been tolerating very well, but in September 2013 she came in with a generalized skin eruption which clinically appeared consistent with hypersensitivity reaction to the tamoxifen, and at that point it was discontinued. As of August 2013 her hormonal treatment was changed to anastrazole. She had presented to the emergency room in December 2014 with numbness on her right side. At that time there was evidence of facial droop and she also had reported impaired speech. She had been having symptoms for several days. Her blood pressure was significantly elevated. A noncontrast head CT at that time showed no acute findings. At that time it was suspected that she had a TIA and/or possible radiculopathy. There did not appear to be any indication for hospital admission. She started amlodipine for the hypertension and she also started low-dose aspirin. Dr Sales was contacted at the time, and did recommend that she stop the anastrozole. During follow-up the symptoms did resolve. Her subsequent evaluation included echocardiogram which showed mild diffuse hypokinesis of the septum and the anteroseptal segments, but with normal left ventricular ejection fraction at 50-55%. Carotid artery duplex showed minimal scattered plaques and intimal thickening bilaterally with no significant stenosis. MRI of the brain showed a remote lacunes in the left thalamus and left caudate nucleus with mild age-related atrophy and small vessel ischemic changes. 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 There was no evidence of metastatic disease. Dr Sales had seen her for a follow-up visit in February 2015. At that point she had no residual symptoms, and she then restarted hormonal therapy with exemestane. Her other medical illnesses include hypertension and type 2 diabetes. She also has history of cardiac arrhythmia. She is a nonsmoker. INTERIM HISTORY: She was seen her for a follow-up visit on 11/14/2017. At that time she was having some new pain in her left lower back and left leg. She had attributed to a pinched nerve , but it was really not getting better. A bone scan on 11/16/2017 showed no evidence of new or progressed osseous metastatic disease. A previously described lesion in the left acetabulum appeared stable compared to 2010. She had further evaluation with MRI of the lumbar spine on 12/15/2017. It showed abnormal marrow signal throughout the thoracic and lumbar vertebral bodies but without enhancement and without associated marrow edema. As such, it appeared unlikely to be due to metastatic disease. There was no evidence of cord or nerve root compression. There were mild to moderate degenerative changes. 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 Considerations included indolent metastatic deposit or indolent primary bone neoplasm. An associated superior pubic ramus pathologic fracture was not excluded. There was no evidence of other metastatic disease on that study. Given those findings in the setting of persistent pain, she was referred to Dr. Ybarra for palliative radiation. She completed treatment to the left hip on 01/27/2018 to a total dose of 3000 cGy. She had further staging with PET/CT on 02/04/2018. It showed a solitary hypermetabolic lytic osseous lesion at the anterior left acetabulum, SUV 4.7. There were no other areas of osseous metastases and there were no soft tissue malignant lesions noted. She then began further systemic therapy with fulvestrant in combination with ribociclib. She also began monthly denosumab injections for the metastatic bone involvement. Restaging PET/CT on 08/12/2018 showed stable findings with FDG avid solitary left acetabular lesion, SUV 4.4. The appearance was unchanged from the previous study in February 2018. There were no new osseous lesions and there was no evidence of other metastatic disease. She continued treatment with fulvestrant in combination with ribociclib. At her follow-up visit in January 2019 the ribociclib and the denosumab were put on hold due to development of a skin eruption involving the lower extremities. The fulvestrant, though, was continued monthly. Her symptoms improved and she then restarted the denosumab injections. As of 04/03/2019 her CA 27.29 had declined to 18.52 U/mL. She did not restart the ribociclib. Mrs. Panda is here today for follow-up. She continues on the Faslodex and Xgeva monthly. She is doing well overall. She states she has been working in her yard quite a bit. She has been working around the house. She states she is doing your things she wants to do except driving and the other reason she is not driving is because she has nowhere to go. She states that she is really doing well. Her appetite is good her energy is good. She denies any pain. She denies any fever or chills. She is had no known Covid symptoms, exposure or testing. She states her bowel and bladder are good. She denies any lower extremity edema. She denies any neuropathy. Her ECOG is 0. Past Medical History: Hypertension Osteoarthritis Overactive bladder Type II diabetes Cancer (left breast) in 1998 (Treated) Past Surgical History: Flu vaccine 2019 in 2019 - right deltoid Flu vaccine in 2018 - right deltoid Pneumonia vaccine in 2019 Flu Vaccine in 2018 Colonoscopy in 2009 Breast surgery in 1998 D & C in 1998 Ear sugery in 1992 Cholecystectomy in 1977 Tonsillectomy in 1958 Allergies: Anastrozole, Antihistamines, Chlorpheniramine-type, IVP dye, Lincocin, Penicillins, and Tamoxifen Citrate. Medications: AmLODIPine Besylate 1 (5 mg) Tablet Oral daily Aspirin 1 (325 mg) Tablet Oral daily Atenolol 1 (50 mg) Tablet Oral daily Ergocalciferol 1 (10965 Units) Capsule Oral q 4 weeks GlipiZIDE 1 (5 mg) Tablet Oral b.i.d. Lasix 1 Tablet (of 40 mg) Oral daily MetFORMIN HCl 2 (500 mg) Tablet Oral b.i.d. Family History: Ms. Navarro's mother at age 53: cancer history consists of Cervical cancer while other medical history includes coronary artery disease (cause of ) and diabetes. Ms. Navarro's father at age 69: Heart disease, and Lupus. Ms. Navarro has 2 sisters: 2 unknown. Ms. Navarro's first sister's medical history includes diabetes. Another sister's medical history includes diabetes and Heart disease. She has 1 son who is : medical history includes Cardiomyopathy. Social History: Ms. Navarro is and she is retired. Ms. Navarro has never smoked. She has no history of drinking. Ms. Navarro reports the following support systems: lives with spouse, significant other, family, or friends, lives in own house, and adequate transportation available for expected visits. Her diet consists of regular meals. She indicates her activity level as: light exercise. Review Of Symptoms: Constitutional Denies fevers, chills, night sweats, excessive fatigue or excessive weight loss. She has been working in her yard and around her house. Allergic/Immunologic No reactions. Eyes Denies significant visual changes. No diplopia. No amaurosis. ENMT Denies changes in hearing, sore throat, mouth sores, difficulty or changes in swallowing ability, and/or sinus drainage. Endocrine No diabetes, thyroid disease or hormone replacement. Denies hot flashes or night sweats. Hematologic/Lymphatic Denies easy bruising or bleeding. The patient denies any tender or palpable lymph nodes. Breasts no concerns. Respiratory Denies dyspnea on exertion-unless doing alot of heavy exertion, chest pain, cough or hemoptysis. Denies orthopnea. Cardiovascular Denies anginal chest pain, palpitations or orthopnea. Gastrointestinal Denies nausea, vomiting, diarrhea, GI bleeding, or constipation. Denies change in bowel habits and/or stool color, no heartburn or early satiety. Genitourinary (F) No hematuria, hesitancy, incontinence, vaginal bleeding, discharge or other problems with urination. Musculoskeletal Denies joint pain, swelling or redness. No decreased range of motion. Integumentary Denies chronic rashes, inflammation, ulcerations or skin changes. Neurologic Denies headache, blurred vision, and no areas of focal weakness or numbness. Normal gait. No sensory problems. Psychiatric Denies insomnia, depression, joana or mood swings. Vital Signs: Performed on Mar 19, 2020 09:03 Height - 66.00 in Weight - 180.2 lbs (HIGH) BSA - 1.91 sq.m BMI - 29.09 Temperature - 98.2 F (LOW) Pulse - 65 /min Respiration - 18 /min BP - 156/69 mm(hg) (HIGH) O2 Sat - 97 %,0 - Fully active, able to carry on all predisease activities without restrictions. (ECOG) Physical Examination: Constitutional Alert, oriented, no acute distress. Skin pink, warm and dry. Head Normocephalic; atraumatic. Eyes Conjunctivae and sclerae are clear and without icterus. Pupils are reactive and equal. Neck Supple without masses or thyromegaly. No jugular venous distension. Hematologic/Lymphatic No petechiae or purpura. No tender or palpable lymph nodes in the cervical or supraclavicular areas. Respiratory Lungs are clear to auscultation without rhonchi or wheezing. Cardiovascular Regular rate and rhythm of heart without murmurs,clicks, gallops or rubs. Abdomen Non-tender, non-distended, no masses, ascites. No guarding or rebound tenderness. No pulsatile masses. Back/Spine Non-tender to palpation. Extremities No visible deformities, no cyanosis, clubbing or edema. Musculoskeletal No tenderness or swelling, normal range of motion without obvious weakness. Integumentary No rashes or lesions. Neurologic No sensory or motor deficits, normal cerebellar function, normal for her gait. Psychiatric Alert and oriented times three. Coherent speech. Verbalizes understanding of our discussions today. Laboratory:see flow sheet and below for labs from 03/18/2020. Impression: 1. Patient with metastatic breast cancer, ER/MI positive and HER-2/jesu negative. She had local recurrence in the chest wall in March 2010, confirmed by biopsy. At that time there were multiple sites of bone involvement by PET/CT. She had a very good clinical response to treatment with tamoxifen, but it was stopped in September 2013 due to a hypersensitivity reaction. 2. She subsequently changed hormonal therapy to anastrozole. She had then done well until December 2014 when she presented to the emergency room with neurologic symptoms which included numbness in both hands, the right leg, and her tongue. She did report having headache at that time, and her blood pressure was significantly elevated. TIA was suspected, though her subsequent evaluation was unremarkable, and I really felt that the symptoms were more likely due to anastrozole. She did stop the medication at that time, and the symptoms completely resolved. 3. As of February 2015 she restarted hormonal therapy with exemestane. She tolerated it with no adverse effects. Her other medical illnesses include: 4. Hypertension. 5. Type II diabetes. 6. She has a history of cardiac arrhythmia. As of her follow-up in November 2017 she reported pain in the lower back and left hip area. Her initial evaluation with bone scan and MRI of the lumbar spine did not show any obvious metastatic involvement, but MRI of the pelvis was suspicious for a left anterior acetabulum-lateral superior pubic ramus neoplastic lesion. She was referred to Dr. Ybarra, and she was given radiation to the left hip area, completed on 01/27/2018 to a total dose of 3000 cGy. She has had a good clinical response to the radiation, with complete resolution of her pain. Her staging PET/CT on 02/04/2018 showed an FDG avid solitary lytic osseous lesion at the anterior left acetabulum. There were no other areas of abnormal uptake on that study. Based on the PET/CT findings, she appeared to have a solitary metastasis involving the left acetabulum, and she completed palliative radiation to that area. She then began further systemic therapy with fulvestrant in combination with ribociclib. She also began monthly denosumab injections for the metastatic bone involvement. Her restaging PET/CT in August 2018 showed stable findings in the left hip. There was no evidence of other metastatic disease. As of her follow-up visit in January 2019 the ribociclib and the denosumab were put on hold due to development of a skin eruption in the lower extremities. She did require antibiotic therapy for cellulitis, and she also required diuretic therapy for swelling, but it gradually resolved. She had otherwise been stable clinically. She then continued treatment with fulvestrant 500 mg by intramuscular injection monthly together with denosumab injections for the metastatic bone involvement. The ribociclib remained on hold. During follow-up she has been doing well with gradual improvement in her clinical status. She has been tolerating treatment well since stopping the ribociclib. She has had a very good clinical response, thus far with no evidence of disease progression. Plan: 1. Proceed with monthly fulvestrant 500 mg by intramuscular injection for the breast cancer 2. Continue denosumab 120 mg by subcutaneous injection monthly for the metastatic bone involvement 3. Flu vac today. She states she is current on her pneumonia shot. 4. Labs from 03/18/2020 were reviewed in detail and discussed with Mrs aNvarro and a copy was given to her. WBC 11.5, hemoglobin 12.3, platelets 285,000 ANC is 6000. Potassium 4.4 random glucose 194 nonfasting she states she had a sweet before her labs. Creatinine 0.7 LFTs are normal. Her CA 27-29 is 35. Her hemoglobin A1c today is 6.6. 5. Will send it a prescription for Glucometer lancets and strips to [facility] pharmacy. It was not covered on her Medicare at [facility] pharmacy. 6. She will continue monthly fulvestrant and denosumab. She is due to return in 1 month. She request that we work her injections with her mammogram on April 21, 2020. 7. Mrs. Ignacio was instructed to contact us in the interim should questions or problems arise. Signed By: Christine Velazquez-, [facility] Mo Sales MD <<Signature on File>>
== END 2020-03-19 05:51 | disposition home or self-care (01) ==
LOC: ONCMED 05:53
PROVIDERS: PCP Family Medicine; Visit Provider Nurse Practitioner
DX: C50.812 Malignant neoplasm of overlapping sites of left female breast (principal); C79.51 Secondary malignant neoplasm of bone; Z23 Encounter for immunization; Z17.0 Estrogen receptor positive status [ER+]; Z79.818 Long term (current) use of other agents affecting estrogen receptors and estrogen levels; Z79.899 Other long term (current) drug therapy
CPT/HCPCS: 90471; 90686; 96372; 96402; 99214; J0897; J9395

== ENCOUNTER 2020-04-18 09:15 | Outpatient (CLI) | payer MEDICARE, OTHER, SELFPAY ==
[2020-04-18 10:33] LABS: Basophils # 0.1 10^3/uL (0.0-0.1); Basophils % 0.5 %; Eosinophils # 0.5 10^3/uL (0.0-0.8); Eosinophils % 5.1 %; Hematocrit 38.1 % (37.0-47.0); Hemoglobin 12.1 g/dL (11.5-15.3); Lymphocytes # 3.1 10^3/uL (0.8-4.8); Lymphocytes % 30.5 %; Mean Corpuscular HGB Conc 31.8 g/dL (30.0-36.0); Mean Corpuscular Hemoglobin 28.1 pg (28.0-34.0); Mean Corpuscular Volume 88.6 fL (81-99); Mean Platelet Volume 10.7 fL (7.4-10.4); Monocytes # 0.9 10^3/uL (0.2-0.9); Monocytes % 8.6 %; Neutrophils % 54.3 %; Nucleated Red Blood Cells % 0 %; Platelet Count 270 10^3/cmm (130-400); Red Cell Distribution Width 13.2 % (12.1-15.1); White Blood Count 10.3 10^3/uL (4.0-10.0)
[2020-04-18 10:57] LABS: Alanine Aminotransferase 12 U/L (0-33); Alkaline Phosphatase 70 IU/L (35-105); Anion Gap 16.3 (5-19); Aspartate Amino Transferase 14 U/L (0-32); Blood Urea Nitrogen 15 mg/dL (8-23); Calcium 9.3 mg/dL (8.5-10.5); Carbon Dioxide 25 mmol/L (22-29); Chloride 99 mmol/L (98-107); Globulin 3.5 g/dL (1.3-4.6); Glucose 284 mg/dL (65-115); Osmolality Calculated 293 mOsm/kg (285-295); Potassium 4.3 mmol/L (3.5-5.1); Sodium 136 mmol/L (136-145); Total Bilirubin 0.6 mg/dL (0.15-1.2); Total Protein 7.5 g/dL (6.6-8.7)
[2020-04-19 09:28] LABS: CA 27.29 40 U/mL (<38)
== END 2020-04-18 09:16 | disposition home or self-care (01) ==
LOC: ONCMED 10:20
PROVIDERS: PCP Family Medicine; Visit Provider Nurse Practitioner
DX: C50.812 Malignant neoplasm of overlapping sites of left female breast (principal); Z17.0 Estrogen receptor positive status [ER+]; C79.51 Secondary malignant neoplasm of bone; R60.0 Localized edema; Z79.811 Long term (current) use of aromatase inhibitors
CPT/HCPCS: 36415; 80053; 85025; 86300

== ENCOUNTER 2020-04-21 06:04 | Outpatient (CLI) | payer MEDICARE, OTHER, SELFPAY ==
[2020-04-21] MEDS: fulvestrant 250 mg/5 mL Syringe 500 MG IM (09:00)
--- NOTE | 2020-04-21 09:12 | MM_ITS ---
WS: [id number] DIAGNOSTIC RIGHT DIGITAL MAMMOGRAM WITH CAD HISTORY: HX OF BREAST CA COMPARISON: 03/20/2019 and 02/16/2018 Technique: CC, MLO and ML views. Breast composition: There are scattered areas of fibroglandular density. Stable appearance of the ca lcifications and a lymph node in the upper outer quadrant. No distortion. MM/[place] [id number] IMPRESSION: BI-RADS: 2-Benign FOLLOW UP: 1 Year Follow-up
[2020-04-21] MEDS: denosumab 120 mg SDV SUBCUT (09:20)
== END 2020-04-21 06:05 | disposition home or self-care (01) ==
PROVIDERS: PCP Family Medicine; Visit Provider Nurse Practitioner
DX: Z51.11 Encounter for antineoplastic chemotherapy (principal); C50.812 Malignant neoplasm of overlapping sites of left female breast; Z17.0 Estrogen receptor positive status [ER+]; C79.51 Secondary malignant neoplasm of bone; R60.0 Localized edema; Z79.811 Long term (current) use of aromatase inhibitors; Z79.899 Other long term (current) drug therapy
CPT/HCPCS: 77065; 96372; 96402; J0897; J9395

== ENCOUNTER 2020-05-22 09:09 | Outpatient (CLI) | payer MEDICARE, OTHER, SELFPAY ==
[2020-05-22] MEDS: denosumab 120 mg SDV SUBCUT (09:45)
[2020-05-22] MEDS: fulvestrant 250 mg/5 mL Syringe 500 MG IM (09:48)
== END 2020-05-22 09:10 | disposition home or self-care (01) ==
LOC: ONCMED 09:12
PROVIDERS: PCP Family Medicine; Visit Provider Nurse Practitioner
DX: C50.812 Malignant neoplasm of overlapping sites of left female breast (principal); C79.51 Secondary malignant neoplasm of bone; Z17.0 Estrogen receptor positive status [ER+]; R60.0 Localized edema; Z79.811 Long term (current) use of aromatase inhibitors; R53.83 Other fatigue; L65.9 Nonscarring hair loss, unspecified
CPT/HCPCS: 96372; 96402; J0897; J9395

== ENCOUNTER 2020-06-23 08:23 | Outpatient (CLI) | payer MEDICARE, OTHER, SELFPAY ==
[2020-06-23] MEDS: denosumab 120 mg SDV SUBCUT (09:15)
[2020-06-23] MEDS: fulvestrant 250 mg/5 mL Syringe 500 MG IM (09:15)
--- NOTE | 2020-06-23 18:12 | ONC FU_ITS ---
Dr. Sales Patient Follow-Up Note Patient: Jessenia Navarro Unit #: [id number]: [id number] Dicatated By: Mo Sales M.D.Date of Visit:Jun 23, 2020 Onc Med Follow-up/Prog Note Chief Complaint: Breast cancer. History of Present Illness: This is a 79 year-old woman with metastatic breast cancer, ER/WI positive and HER-2/jesu negative. 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 Pathology at that time showed grade 2 infiltrating ductal carcinoma with the largest tumor measuring 1.3 cm. It was reported to be ER positive/WI negative and HER-2/jesu negative. There was no involvement in 16 axillary lymph nodes. She did not receive any adjuvant therapy. She had presented in March 2010 with an erythematous nodule in the upper left chest wall. Excisional biopsy did confirm metastatic adenocarcinoma consistent with metastatic breast cancer. That tumor was ER positive at 93% and WI positive at 100%. It was negative for overexpression of HER-2/jesu by IHC and by FISH. A staging PET/CT showed multiple sites of bone involvement. She was then started on hormonal therapy, initially with Aromasin. She tolerated it very poorly. As of May 2010 her treatment was changed to tamoxifen. She has had a very good response by followup bone scan. She had been tolerating it very well, but in September 2013 she came in with a generalized skin eruption which clinically appeared consistent with hypersensitivity reaction to the tamoxifen, and at that point it was discontinued. As of August 2013 her hormonal treatment was changed to anastrazole. She had presented to the emergency room in December 2014 with numbness on her right side. At that time there was evidence of facial droop and she also had reported impaired speech. She had been having symptoms for several days. Her blood pressure was significantly elevated. A noncontrast head CT at that time showed no acute findings. At that time it was suspected that she had a TIA and/or possible radiculopathy. There did not appear to be any indication for hospital admission. She started amlodipine for the hypertension and she also started low-dose aspirin. I was contacted at the time, and I also did recommend that she stop the anastrozole. During follow-up the symptoms did resolve. Her subsequent evaluation included echocardiogram which showed mild diffuse hypokinesis of the septum and the anteroseptal segments, but with normal left ventricular ejection fraction at 50-55%. Carotid artery duplex showed minimal scattered plaques and intimal thickening bilaterally with no significant stenosis. MRI of the brain showed a remote lacunes in the left thalamus and left caudate nucleus with mild age-related atrophy and small vessel ischemic changes. 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 There was no evidence of metastatic disease. I had seen her for a follow-up visit in February 2015. At that point she had no residual symptoms, and she then restarted hormonal therapy with exemestane. had seen her for a follow-up visit on 11/14/2017. At that time she was having some new pain in her left lower back and left leg. She had attributed to a pinched nerve , but it was really not getting better. A bone scan on 11/16/2017 showed no evidence of new or progressed osseous metastatic disease. A previously described lesion in the left acetabulum appeared stable compared to 2010. She had further evaluation with MRI of the lumbar spine on 12/15/2017. It showed abnormal marrow signal throughout the thoracic and lumbar vertebral bodies but without enhancement and without associated marrow edema. As such, it appeared unlikely to be due to metastatic disease. There was no evidence of cord or nerve root compression. There were mild to moderate degenerative changes. 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 Considerations included indolent metastatic deposit or indolent primary bone neoplasm. An associated superior pubic ramus pathologic fracture was not excluded. There was no evidence of other metastatic disease on that study. Given those findings in the setting of persistent pain, she was referred to Dr. Ybarra for palliative radiation. She completed treatment to the left hip on 01/27/2018 to a total dose of 3000 cGy. She had further staging with PET/CT on 02/04/2018. It showed a solitary hypermetabolic lytic osseous lesion at the anterior left acetabulum, SUV 4.7. There were no other areas of osseous metastases and there were no soft tissue malignant lesions noted. She then began further systemic therapy with fulvestrant in combination with ribociclib. She also began monthly denosumab injections for the metastatic bone involvement. Restaging PET/CT on 08/12/2018 showed stable findings with FDG avid solitary left acetabular lesion, SUV 4.4. The appearance was unchanged from the previous study in February 2018. There were no new osseous lesions and there was no evidence of other metastatic disease. She continued treatment with fulvestrant in combination with ribociclib. At her follow-up visit in January 2019 the ribociclib and the denosumab were put on hold due to development of a skin eruption involving the lower extremities. The fulvestrant, though, was continued monthly. Her symptoms improved and she then restarted the denosumab injections. As of 04/03/2019 her CA 27.29 had declined to 18.52 U/mL. Her other medical illnesses include hypertension and type 2 diabetes. She also has history of cardiac arrhythmia. She has had previous surgery on her left ear, apparently for hearing loss. She is a nonsmoker. INTERIM HISTORY: She is seen for a follow-up visit. She has been feeling good generally. She has good energy and activity tolerance. Her ECOG score is 0. Her appetite is good. She has no fever, night sweats, or hot flashes. She indicates that she needs follow-up with an ENT physician for her left ear, though she has not been having any problems with it. She has no shortness of breath, cough, or chest pain. She has no GI or complaints. She sometimes has pain in her right thumb, which she manages with topical therapy. She has no other joint or bone pain. She does not complain of headache or dizziness, and she has no focal neurologic symptoms. Medications: AmLODIPine Besylate 1 (5 mg) Tablet Oral daily, Aspirin 1 (325 mg) Tablet Oral daily, Atenolol 1 (50 mg) Tablet Oral daily, Ergocalciferol 1 (66010 Units) Capsule Oral q 4 weeks, GlipiZIDE 1 (5 mg) Tablet Oral b.i.d., Lasix 1 Tablet (of 40 mg) Oral daily, MetFORMIN HCl 2 (500 mg) Tablet Oral b.i.d. Allergies: Anastrozole, Antihistamines, Chlorpheniramine-type, IVP dye, Lincocin, Penicillins, and Tamoxifen Citrate. Vital Signs: Performed on Jun 23, 2020 08:33 Height - 66.00 in Weight - 182.2 lbs (HIGH) BSA - 1.92 sq.m BMI - 29.41 Temperature - 96.6 F (LOW) Pulse - 72 /min Respiration - 18 /min BP - 157/88 mm(hg) (HIGH) O2 Sat - 96 % Pain - 0 Fatigue - 3 Physical Examination: Constitutional - She looks good generally, Eyes - Sclerae nonicteric. Conjunctivae clear, ENMT - No lesions noted in the oral cavity, Hematologic/Lymphatic - No cervical or clavicular adenopathy, Respiratory - Lungs are clear with good air movement bilaterally, Cardiovascular - Heart rhythm appears regular. There is no murmur, gallop, or rub noted, Breasts - There are no lesions noted in the left chest wall. There is no axillary adenopathy noted, Abdomen - Soft. Liver and spleen are not enlarged. There is no abdominal mass or ascites noted and there is no inguinal adenopathy, Extremities - No edema, Integumentary - There are small actinic keratoses on each side of the face. There has been no recurrence of skin eruption, Neurologic - No focal neurologic deficits noted. Lab/Imaging: Her lab studies from 04/18/2020 were reviewed. At that point she appeared to be showing a slight increase in her CA 27-29 level. Problem List: 1. Metastatic breast cancer, ER/WI positive and HER-2/jesu negative. She had undergone left mastectomy in February 1999. She had local recurrence in the chest wall in March 2010, confirmed by biopsy. At that time there were multiple sites of bone involvement by PET/CT. She had a very good clinical response to treatment with tamoxifen. In September 2013 she developed a hypersensitivity reaction, and her treatment was then changed to anastrozole. 2. In December 2014 when she presented to the emergency room with multiple neurologic symptoms which included numbness in both hands, the right leg, and her tongue. TIA was suspected, though her subsequent evaluation was unremarkable, and I really felt that the symptoms were more likely due to anastrozole. The anastrozole was stopped, and the symptoms completely resolved. As of February 2015 she restarted hormonal therapy with exemestane. She tolerated it with no adverse effects. 3. In January 2018 an MRI of the pelvis was suspicious for a left anterior acetabulum-lateral superior pubic ramus neoplastic lesion. She was given radiation to the left hip area, completed on 01/27/2018 to a total dose of 3000 cGy. Her staging PET/CT on 02/04/2018 showed an FDG avid solitary lytic osseous lesion at the anterior left acetabulum. There were no other areas of abnormal uptake on that study. She then began further systemic therapy with fulvestrant in combination with ribociclib. She also began monthly denosumab injections for the metastatic bone involvement. 4. Hypertension. 5. Type II diabetes. 6. She has a history of cardiac arrhythmia. Problems Addressed with this Encounter and Plan: 1. Metastatic breast cancer, ER/WI positive and HER-2/jesu negative. She began treatment with fulvestrant in combination with ribociclib in February 2018. As of her follow-up visit in January 2019 the ribociclib and the denosumab were put on hold due to development of a skin eruption in the lower extremities. She did require antibiotic therapy for cellulitis, and she also required diuretic therapy for swelling, but it gradually resolved. She had otherwise been stable clinically. She then continued treatment with fulvestrant 500 mg by intramuscular injection monthly together with denosumab injections for the metastatic bone involvement. The ribociclib remained on hold. She has since then been doing well. She has been tolerating treatment well and there has been no evidence clinically of any further recurrence/progression of her breast cancer. She will continue treatment with fulvestrant 500 mg by intramuscular injection monthly for the breast cancer together with denosumab 120 mg by subcutaneous injection monthly for the metastatic bone involvement. She will be scheduled for a followup visit in 3 months. 2. She has 2 small actinic keratoses, 1 on each side of the face. She will be referred to dermatology for treatment. 3. She has required ENT exams on a regular basis following previous left ear surgery for hearing loss. She is now overdue for that, and she was scheduled for a follow-up appointment at the ENT clinic. Signed By: Mo Sales M.D. <<Signature on File>>
== END 2020-06-23 08:24 | disposition home or self-care (01) ==
LOC: ONCMED 08:25
PROVIDERS: PCP Family Medicine; Visit Provider Internal Medicine Medical Oncology
DX: C50.812 Malignant neoplasm of overlapping sites of left female breast (principal); C79.51 Secondary malignant neoplasm of bone; L57.0 Actinic keratosis; H91.92 Unspecified hearing loss, left ear; Z17.0 Estrogen receptor positive status [ER+]; Z79.818 Long term (current) use of other agents affecting estrogen receptors and estrogen levels; Z79.899 Other long term (current) drug therapy
CPT/HCPCS: 96372; 96402; 99214; J0897; J9395

== ENCOUNTER 2020-07-30 09:32 | Outpatient (CLI) | payer MEDICARE, OTHER, SELFPAY ==
[2020-07-30] MEDS: denosumab 120 mg SDV SUBCUT (10:15)
[2020-07-30] MEDS: fulvestrant 250 mg/5 mL Syringe 500 MG IM (10:15)
== END 2020-07-30 09:33 | disposition home or self-care (01) ==
LOC: ONCMED 09:34
PROVIDERS: PCP Family Medicine; Visit Provider Internal Medicine Medical Oncology
DX: C50.812 Malignant neoplasm of overlapping sites of left female breast (principal); C79.51 Secondary malignant neoplasm of bone; Z17.0 Estrogen receptor positive status [ER+]; Z79.811 Long term (current) use of aromatase inhibitors
CPT/HCPCS: 96372; J0897; J9395

== ENCOUNTER 2020-09-02 11:17 | Outpatient (CLI) | payer MEDICARE, OTHER, SELFPAY ==
[2020-09-02] MEDS: denosumab 120 mg SDV SUBCUT (11:45)
[2020-09-02] MEDS: fulvestrant 250 mg/5 mL Syringe 500 MG IM (11:50)
== END 2020-09-02 11:18 | disposition home or self-care (01) ==
LOC: ONCMED 11:19
PROVIDERS: PCP Family Medicine; Visit Provider Internal Medicine Medical Oncology
DX: C50.812 Malignant neoplasm of overlapping sites of left female breast (principal); C79.51 Secondary malignant neoplasm of bone; Z17.0 Estrogen receptor positive status [ER+]; R60.0 Localized edema; Z79.811 Long term (current) use of aromatase inhibitors; Z79.818 Long term (current) use of other agents affecting estrogen receptors and estrogen levels
CPT/HCPCS: 96372; 96402; J0897; J9395

== ENCOUNTER 2020-10-02 08:14 | Outpatient (CLI) | payer MEDICARE, OTHER, SELFPAY ==
[2020-10-02 08:30] LABS: Basophils # 0.1 10^3/uL (0.0-0.1); Basophils % 0.4 %; Eosinophils # 0.7 10^3/uL (0.0-0.8); Eosinophils % 5.4 %; Hematocrit 39.6 % (37.0-47.0); Hemoglobin 12.8 g/dL (11.5-15.3); Lymphocytes # 3.1 10^3/uL (0.8-4.8); Lymphocytes % 25.2 %; Mean Corpuscular HGB Conc 32.3 g/dL (30.0-36.0); Mean Corpuscular Hemoglobin 28.2 pg (28.0-34.0); Mean Corpuscular Volume 87.2 fL (81-99); Mean Platelet Volume 10.7 fL (7.4-10.4); Monocytes # 1.2 10^3/uL (0.2-0.9); Monocytes % 9.5 %; Neutrophils # 7.18 10^3/uL (1.8-7.7); Neutrophils % 58.6 %; Nucleated Red Blood Cells % 0 %; Platelet Count 292 10^3/cmm (130-400); Red Blood Count 4.54 10^6/uL (4.1-5.3); Red Cell Distribution Width 13.2 % (12.1-15.1); White Blood Count 12.3 10^3/uL (4.0-10.0)
[2020-10-02 08:46] LABS: Alanine Aminotransferase 12 U/L (0-33); Albumin Level 4.2 g/dL (3.5-5.2); Alkaline Phosphatase 78 IU/L (35-105); Anion Gap 17.5 (5-19); Aspartate Amino Transferase 21 U/L (0-32); Blood Urea Nitrogen 15 mg/dL (8-23); Calcium 8.7 mg/dL (8.5-10.5); Carbon Dioxide 26 mmol/L (22-29); Chloride 94 mmol/L (98-107); Globulin 3.2 g/dL (1.3-4.6); Glucose 164 mg/dL (65-115); Osmolality Calculated 282 mOsm/kg (285-295); Potassium 3.5 mmol/L (3.5-5.1); Sodium 134 mmol/L (136-145); Total Protein 7.4 g/dL (6.6-8.7)
[2020-10-03 13:08] LABS: CA 27.29 86 U/mL (<38)
== END 2020-10-02 08:15 | disposition home or self-care (01) ==
LOC: ONCMED 13:20
PROVIDERS: PCP Family Medicine; Visit Provider Internal Medicine Medical Oncology
DX: C50.812 Malignant neoplasm of overlapping sites of left female breast (principal); Z17.0 Estrogen receptor positive status [ER+]; C79.51 Secondary malignant neoplasm of bone; Z79.811 Long term (current) use of aromatase inhibitors; R60.0 Localized edema; R53.83 Other fatigue
CPT/HCPCS: 80053; 85025; 86300

== ENCOUNTER 2020-10-06 05:41 | Outpatient (CLI) | payer MEDICARE, OTHER, SELFPAY ==
[2020-10-06] MEDS: denosumab 120 mg SDV SUBCUT (12:20)
[2020-10-06] MEDS: fulvestrant 250 mg/5 mL Syringe 500 MG IM (12:23)
--- NOTE | 2020-10-14 22:01 | ONC FU_ITS ---
[facility] Patient Note Patient: Jessenia Navarro Unit #: [id number]: 1940 Dictated By: Christine VelazquezDate of Visit: October 06, 2020 Onc MED Follow-Up/Prog Note Chief Complaint: Breast cancer. History of Present Illness: Ms Navarro is an 80 year-old woman with metastatic breast cancer, ER/CA positive and HER-2/jesu negative. 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 Pathology at that time showed grade 2 infiltrating ductal carcinoma with the largest tumor measuring 1.3 cm. It was reported to be ER positive/CA negative and HER-2/jesu negative. There was no involvement in 16 axillary lymph nodes. She did not receive any adjuvant therapy. She had presented in March 2010 with an erythematous nodule in the upper left chest wall. Excisional biopsy did confirm metastatic adenocarcinoma consistent with metastatic breast cancer. That tumor was ER positive at 93% and CA positive at 100%. It was negative for overexpression of HER-2/jesu by IHC and by FISH. A staging PET/CT showed multiple sites of bone involvement. She was then started on hormonal therapy, initially with Aromasin. She tolerated it very poorly. As of May 2010 her treatment was changed to tamoxifen. She has had a very good response by followup bone scan. She had been tolerating it very well, but in September 2013 she came in with a generalized skin eruption which clinically appeared consistent with hypersensitivity reaction to the tamoxifen, and at that point it was discontinued. As of August 2013 her hormonal treatment was changed to anastrazole. She had presented to the emergency room in December 2014 with numbness on her right side. At that time there was evidence of facial droop and she also had reported impaired speech. She had been having symptoms for several days. Her blood pressure was significantly elevated. A noncontrast head CT at that time showed no acute findings. At that time it was suspected that she had a TIA and/or possible radiculopathy. There did not appear to be any indication for hospital admission. She started amlodipine for the hypertension and she also started low-dose aspirin. Dr Slaes was contacted at the time, and he recommended that she stop the anastrozole. During follow-up the symptoms did resolve. Her subsequent evaluation included echocardiogram which showed mild diffuse hypokinesis of the septum and the anteroseptal segments, but with normal left ventricular ejection fraction at 50-55%. Carotid artery duplex showed minimal scattered plaques and intimal thickening bilaterally with no significant stenosis. MRI of the brain showed a remote lacunes in the left thalamus and left caudate nucleus with mild age-related atrophy and small vessel ischemic changes. 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 There was no evidence of metastatic disease. Dr Sales had seen her for a follow-up visit in February 2015. At that point she had no residual symptoms, and she then restarted hormonal therapy with exemestane. Dr Sales had seen her for a follow-up visit on 11/14/2017. At that time she was having some new pain in her left lower back and left leg. She had attributed to a pinched nerve , but it was really not getting better. A bone scan on 11/16/2017 showed no evidence of new or progressed osseous metastatic disease. A previously described lesion in the left acetabulum appeared stable compared to 2010. She had further evaluation with MRI of the lumbar spine on 12/15/2017. It showed abnormal marrow signal throughout the thoracic and lumbar vertebral bodies but without enhancement and without associated marrow edema. As such, it appeared unlikely to be due to metastatic disease. There was no evidence of cord or nerve root compression. There were mild to moderate degenerative changes. 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 Considerations included indolent metastatic deposit or indolent primary bone neoplasm. An associated superior pubic ramus pathologic fracture was not excluded. There was no evidence of other metastatic disease on that study. Given those findings in the setting of persistent pain, she was referred to Dr. Ybarra for palliative radiation. She completed treatment to the left hip on 01/27/2018 to a total dose of 3000 cGy. She had further staging with PET/CT on 02/04/2018. It showed a solitary hypermetabolic lytic osseous lesion at the anterior left acetabulum, SUV 4.7. There were no other areas of osseous metastases and there were no soft tissue malignant lesions noted. She then began further systemic therapy with fulvestrant in combination with ribociclib. She also began monthly denosumab injections for the metastatic bone involvement. Restaging PET/CT on 08/12/2018 showed stable findings with FDG avid solitary left acetabular lesion, SUV 4.4. The appearance was unchanged from the previous study in February 2018. There were no new osseous lesions and there was no evidence of other metastatic disease. She continued treatment with fulvestrant in combination with ribociclib. At her follow-up visit in January 2019 the ribociclib and the denosumab were put on hold due to development of a skin eruption involving the lower extremities. The fulvestrant, though, was continued monthly. Her symptoms improved and she then restarted the denosumab injections. As of 04/03/2019 her CA 27.29 had declined to 18.52 U/mL. Her other medical illnesses include hypertension and type 2 diabetes. She also has history of cardiac arrhythmia. She has had previous surgery on her left ear, apparently for hearing loss. She is a nonsmoker. INTERIM HISTORY: Ms. Navarro is here today for follow-up. She continues with monthly positive Dex and Xgeva. She continues to tolerate it well. She states overall she feels really good. She denies any new concerns. She has been working in her yard. She is staying very active around her home. She denies any pain. She denies any shortness of breath orthopnea. She denies any chest pain or palpitations. She has had no concerns or recurrent breast cancer. She states she is eating good. She denies any bowel or bladder changes. She denies any neuropathy. Her ECOG is 0. Past Medical History: Hypertension Osteoarthritis Overactive bladder Type II diabetes Cancer (left breast) in 1998 (Treated) Past Surgical History: Flu vaccine 2019 in 2019 - right deltoid Flu vaccine in 2018 - right deltoid Pneumonia vaccine in 2018 Flu Vaccine in 2017 Colonoscopy in 2009 Breast surgery in 1998 D & C in 1998 Ear sugery in 1992 Cholecystectomy in 1977 Tonsillectomy in 1958 Allergies: Anastrozole, Antihistamines, Chlorpheniramine-type, IVP dye, Lincocin, Penicillins, and Tamoxifen Citrate. Medications: AmLODIPine Besylate 1 (5 mg) Tablet Oral daily Aspirin 1 (325 mg) Tablet Oral daily Atenolol 1 (50 mg) Tablet Oral daily Ergocalciferol 1 (68389 Units) Capsule Oral q 4 weeks GlipiZIDE 1 (5 mg) Tablet Oral b.i.d. Lasix 1 Tablet (of 40 mg) Oral daily MetFORMIN HCl 2 (500 mg) Tablet Oral b.i.d. Family History: Ms. Navarro's mother at age 53: cancer history consists of Cervical cancer while other medical history includes coronary artery disease (cause of ) and diabetes. Ms. Navarro's father at age 69: Heart disease, and Lupus. Ms. Navarro has 2 sisters: 2 unknown. Ms. Navarro's first sister's medical history includes diabetes. Another sister's medical history includes diabetes and Heart disease. She has 1 son who is : medical history includes Cardiomyopathy. Social History: Ms. Navarro is and she is retired. Ms. Navarro has never smoked. She has no history of drinking. Ms. Navarro reports the following support systems: lives with spouse, significant other, family, or friends, lives in own house, and adequate transportation available for expected visits. Her diet consists of regular meals. She indicates her activity level as: light exercise. Review Of Symptoms: <See Above> Vital Signs: Performed on October 06, 2020 11:33 Height - 66.00 in Weight - 185.8 lbs (HIGH) BSA - 1.94 sq.m BMI - 29.99 Temperature - 97.0 F (LOW) Pulse - 70 /min Respiration - 18 /min BP - 139/75 mm(hg) O2 Sat - 95 % (LOW) Pain - 0,0 - Fully active, able to carry on all predisease activities without restrictions. (ECOG) Physical Examination: Constitutional Alert, oriented, no acute distress. Skin pink, warm and dry. Head Normocephalic; atraumatic. Eyes Conjunctivae and sclerae are clear and without icterus. Pupils are reactive and equal. Neck Supple without masses or thyromegaly. No jugular venous distension. Hematologic/Lymphatic No petechiae or purpura. No tender or palpable lymph nodes in the cervical or supraclavicular areas. Respiratory Lungs are clear to auscultation without rhonchi or wheezing. Cardiovascular Regular rate and rhythm of heart without murmurs,clicks, gallops or rubs. Breasts Right chest wall with no abnormal findings. Left breast normal. Abdomen Non-tender, non-distended, no masses, ascites. No guarding or rebound tenderness. No pulsatile masses. Back/Spine Non-tender to palpation. Extremities No visible deformities, no cyanosis, clubbing or edema. Musculoskeletal No tenderness or swelling, normal range of motion without obvious weakness. Integumentary No rashes or lesions. Neurologic No sensory or motor deficits, normal cerebellar function, normal for her gait. Psychiatric Alert and oriented times three. Coherent speech. Verbalizes understanding of our discussions today. Laboratory:see flow sheet Impression: 1. Metastatic breast cancer, ER/CA positive and HER-2/jesu negative. She had undergone left mastectomy in February 1999. She had local recurrence in the chest wall in March 2010, confirmed by biopsy. At that time there were multiple sites of bone involvement by PET/CT. She had a very good clinical response to treatment with tamoxifen. In September 2013 she developed a hypersensitivity reaction, and her treatment was then changed to anastrozole. 2. In December 2014 when she presented to the emergency room with multiple neurologic symptoms which included numbness in both hands, the right leg, and her tongue. TIA was suspected, though her subsequent evaluation was unremarkable, and I really felt that the symptoms were more likely due to anastrozole. The anastrozole was stopped, and the symptoms completely resolved. As of February 2015 she restarted hormonal therapy with exemestane. She tolerated it with no adverse effects. 3. In January 2018 an MRI of the pelvis was suspicious for a left anterior acetabulum-lateral superior pubic ramus neoplastic lesion. She was given radiation to the left hip area, completed on 01/27/2018 to a total dose of 3000 cGy. Her staging PET/CT on 02/04/2018 showed an FDG avid solitary lytic osseous lesion at the anterior left acetabulum. There were no other areas of abnormal uptake on that study. She then began further systemic therapy with fulvestrant in combination with ribociclib. She also began monthly denosumab injections for the metastatic bone involvement. 4. Hypertension. 5. Type II diabetes. 6. She has a history of cardiac arrhythmia. Plan/Problems Addressed at this Visit: 1. Metastatic breast cancer, ER/CA positive and HER-2/jesu negative. She began treatment with fulvestrant in combination with ribociclib in February 2018. As of her follow-up visit in January 2019 the ribociclib and the denosumab were put on hold due to development of a skin eruption in the lower extremities. She did require antibiotic therapy for cellulitis, and she also required diuretic therapy for swelling, but it gradually resolved. She had otherwise been stable clinically. She then continued treatment with fulvestrant 500 mg by intramuscular injection monthly together with denosumab injections for the metastatic bone involvement. The ribociclib remained on hold. She has since then been doing well. She has been tolerating treatment well and there has been no evidence clinically of any further recurrence/progression of her breast cancer. A. She will continue treatment with fulvestrant 500 mg by intramuscular injection monthly for the breast cancer. B. She will continue denosumab 120 mg by subcutaneous injection monthly for the metastatic bone involvement. C. Labs from October 02, 2020 were reviewed in detail and discussed with Ms. Panda and a copy was given to her. WBC 12.3, hemoglobin 12.8, platelets 292,000, ANC is 7200. Creatinine 0.7 random glucose 164 calcium 8.7 LFTs are normal. Her CA 27-29 is noted to be 86 which is up from April 18, 2020 at which time it was 40. D. Her last mammography was a diagnostic right digital mammogram on April 21, 2020 which reported BI-RADS 2???benign recommend 1 year follow-up. E. I requested that we recheck her CA 27-29 in 1 month when she returns for fulvestrant and denosumab. F. She will plan for follow-up visit with repeat CBC CMP and CA 27-29 in 3 months. G. She return in 2 months for fulvestrant and denosumab. H. She was given a prescription for postmastectomy bras and prosthetics for history of left mastectomy. I. Ms. Navarro was instructed to contact us in the interim should questions or problems arise. J. She is being treated with denosumab monthly for metastatic bone disease and has not had routine bone mineral density studies for monitoring of the fulvestrant as she is covered with the denosumab for the metastatic bone disease. Signed By: Christine Velazquez-, [facility] Mo Sales MD <<Signature on File>>
== END 2020-10-06 05:42 | disposition home or self-care (01) ==
PROVIDERS: PCP Family Medicine; Visit Provider Nurse Practitioner
DX: C50.812 Malignant neoplasm of overlapping sites of left female breast (principal); Z17.0 Estrogen receptor positive status [ER+]; C79.51 Secondary malignant neoplasm of bone; I10 Essential (primary) hypertension; E11.9 Type 2 diabetes mellitus without complications; I49.9 Cardiac arrhythmia, unspecified; Z79.811 Long term (current) use of aromatase inhibitors; Z90.12 Acquired absence of left breast and nipple; Z79.899 Other long term (current) drug therapy
CPT/HCPCS: 96372; 96402; 99214; J0897; J9395

== ENCOUNTER 2020-11-06 07:52 | Outpatient (CLI) | payer MEDICARE, OTHER, SELFPAY ==
[2020-11-06] MEDS: fulvestrant 250 mg/5 mL Syringe 500 MG IM (08:45)
[2020-11-06] MEDS: denosumab 120 mg SDV SUBCUT (08:45)
== END 2020-11-06 07:53 | disposition home or self-care (01) ==
LOC: ONCMED 07:54
PROVIDERS: PCP Family Medicine; Visit Provider Nurse Practitioner
DX: Z51.11 Encounter for antineoplastic chemotherapy (principal); C50.812 Malignant neoplasm of overlapping sites of left female breast; C79.51 Secondary malignant neoplasm of bone; Z17.0 Estrogen receptor positive status [ER+]; Z92.3 Personal history of irradiation; Z90.12 Acquired absence of left breast and nipple; I10 Essential (primary) hypertension; E11.9 Type 2 diabetes mellitus without complications; Z79.899 Other long term (current) drug therapy
CPT/HCPCS: 96372; 96402; J0897; J9395

== ENCOUNTER 2020-12-09 07:40 | Outpatient (CLI) | payer MEDICARE, OTHER, SELFPAY ==
[2020-12-09] MEDS: denosumab 120 mg SDV SUBCUT (08:25)
[2020-12-09] MEDS: fulvestrant 250 mg/5 mL Syringe 500 MG IM (08:30)
== END 2020-12-09 07:41 | disposition home or self-care (01) ==
LOC: ONCMED 07:48
PROVIDERS: PCP Family Medicine; Visit Provider Nurse Practitioner
DX: Z51.11 Encounter for antineoplastic chemotherapy (principal); C50.812 Malignant neoplasm of overlapping sites of left female breast; Z17.0 Estrogen receptor positive status [ER+]; Z90.12 Acquired absence of left breast and nipple; C79.51 Secondary malignant neoplasm of bone; Z79.811 Long term (current) use of aromatase inhibitors; Z79.899 Other long term (current) drug therapy
CPT/HCPCS: 96372; 96402; J0897; J9395

== ENCOUNTER 2021-01-08 11:37 | Outpatient (CLI) | payer MEDICARE, OTHER, SELFPAY ==
[2021-01-08 12:43] LABS: Basophils # 0.1 10^3/uL (0.0-0.1); Basophils % 0.5 %; Eosinophils # 0.6 10^3/uL (0.0-0.8); Eosinophils % 5.1 %; Hematocrit 41.3 % (37.0-47.0); Lymphocytes # 3.2 10^3/uL (0.8-4.8); Lymphocytes % 26.7 %; Mean Corpuscular HGB Conc 31.5 g/dL (30.0-36.0); Mean Corpuscular Hemoglobin 28.1 pg (28.0-34.0); Mean Corpuscular Volume 89.2 fL (81-99); Mean Platelet Volume 10.8 fL (7.4-10.4); Monocytes # 1.1 10^3/uL (0.2-0.9); Monocytes % 9.5 %; Neutrophils # 6.83 10^3/uL (1.8-7.7); Neutrophils % 57.4 %; Nucleated Red Blood Cells % 0 %; Platelet Count 309 10^3/cmm (130-400); Red Blood Count 4.63 10^6/uL (4.1-5.3); Red Cell Distribution Width 13.4 % (12.1-15.1); White Blood Count 11.9 10^3/uL (4.0-10.0)
[2021-01-08 13:13] LABS: Alanine Aminotransferase 26 U/L (0-33); Alkaline Phosphatase 92 IU/L (35-105); Anion Gap 18.6 (5-19); Aspartate Amino Transferase 35 U/L (0-32); Blood Urea Nitrogen 17 mg/dL (8-23); Carbon Dioxide 24 mmol/L (22-29); Chloride 98 mmol/L (98-107); Globulin 3.5 g/dL (1.3-4.6); Glucose 172 mg/dL (65-115); Osmolality Calculated 288 mOsm/kg (285-295); Potassium 4.6 mmol/L (3.5-5.1); Sodium 136 mmol/L (136-145); Total Bilirubin 0.6 mg/dL (0.15-1.2); Total Protein 7.5 g/dL (6.6-8.7)
[2021-01-09 10:18] LABS: CA 27.29 274 U/mL (<38)
== END 2021-01-08 11:38 | disposition home or self-care (01) ==
PROVIDERS: PCP Family Medicine; Visit Provider Nurse Practitioner
DX: C50.812 Malignant neoplasm of overlapping sites of left female breast (principal); Z17.0 Estrogen receptor positive status [ER+]; C79.51 Secondary malignant neoplasm of bone; R60.0 Localized edema; Z79.811 Long term (current) use of aromatase inhibitors
CPT/HCPCS: 36415; 80053; 85025; 86300

== ENCOUNTER 2021-01-12 06:08 | Outpatient (CLI) | payer MEDICARE, OTHER, SELFPAY ==
[2021-01-12] MEDS: fulvestrant 250 mg/5 mL Syringe 500 MG IM (11:00)
[2021-01-12] MEDS: denosumab 120 mg SDV SUBCUT (11:15)
--- NOTE | 2021-01-12 16:46 | ONC FU_ITS ---
Dr. Sales Patient Follow-Up Note Patient: Jessenia Navarro Unit #: [id number]: [id number] Dicatated By: Mo Sales M.D.Date of Visit:Jan 12, 2021 Onc Med Follow-up/Prog Note Chief Complaint: Breast cancer. History of Present Illness: This is a 79 year-old woman with metastatic breast cancer, ER/CA positive and HER-2/jesu negative. 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 Pathology at that time showed grade 2 infiltrating ductal carcinoma with the largest tumor measuring 1.3 cm. It was reported to be ER positive/CA negative and HER-2/jesu negative. There was no involvement in 16 axillary lymph nodes. She did not receive any adjuvant therapy. She had presented in March 2010 with an erythematous nodule in the upper left chest wall. Excisional biopsy did confirm metastatic adenocarcinoma consistent with metastatic breast cancer. That tumor was ER positive at 93% and CA positive at 100%. It was negative for overexpression of HER-2/jesu by IHC and by FISH. A staging PET/CT showed multiple sites of bone involvement. She was then started on hormonal therapy, initially with Aromasin. She tolerated it very poorly. As of May 2010 her treatment was changed to tamoxifen. She has had a very good response by followup bone scan. She had been tolerating it very well, but in September 2013 she came in with a generalized skin eruption which clinically appeared consistent with hypersensitivity reaction to the tamoxifen, and at that point it was discontinued. As of August 2013 her hormonal treatment was changed to anastrazole. She had presented to the emergency room in December 2014 with numbness on her right side. At that time there was evidence of facial droop and she also had reported impaired speech. She had been having symptoms for several days. Her blood pressure was significantly elevated. A noncontrast head CT at that time showed no acute findings. At that time it was suspected that she had a TIA and/or possible radiculopathy. There did not appear to be any indication for hospital admission. She started amlodipine for the hypertension and she also started low-dose aspirin. I was contacted at the time, and I also did recommend that she stop the anastrozole. During follow-up the symptoms did resolve. Her subsequent evaluation included echocardiogram which showed mild diffuse hypokinesis of the septum and the anteroseptal segments, but with normal left ventricular ejection fraction at 50-55%. Carotid artery duplex showed minimal scattered plaques and intimal thickening bilaterally with no significant stenosis. MRI of the brain showed a remote lacunes in the left thalamus and left caudate nucleus with mild age-related atrophy and small vessel ischemic changes. 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 There was no evidence of metastatic disease. I had seen her for a follow-up visit in February 2015. At that point she had no residual symptoms, and she then restarted hormonal therapy with exemestane. had seen her for a follow-up visit on 11/14/2017. At that time she was having some new pain in her left lower back and left leg. She had attributed to a pinched nerve , but it was really not getting better. A bone scan on 11/16/2017 showed no evidence of new or progressed osseous metastatic disease. A previously described lesion in the left acetabulum appeared stable compared to 2010. She had further evaluation with MRI of the lumbar spine on 12/15/2017. It showed abnormal marrow signal throughout the thoracic and lumbar vertebral bodies but without enhancement and without associated marrow edema. As such, it appeared unlikely to be due to metastatic disease. There was no evidence of cord or nerve root compression. There were mild to moderate degenerative changes. 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 Considerations included indolent metastatic deposit or indolent primary bone neoplasm. An associated superior pubic ramus pathologic fracture was not excluded. There was no evidence of other metastatic disease on that study. Given those findings in the setting of persistent pain, she was referred to Dr. Ybarra for palliative radiation. She completed treatment to the left hip on 01/27/2018 to a total dose of 3000 cGy. She had further staging with PET/CT on 02/04/2018. It showed a solitary hypermetabolic lytic osseous lesion at the anterior left acetabulum, SUV 4.7. There were no other areas of osseous metastases and there were no soft tissue malignant lesions noted. She then began further systemic therapy with fulvestrant in combination with ribociclib. She also began monthly denosumab injections for the metastatic bone involvement. Restaging PET/CT on 08/12/2018 showed stable findings with FDG avid solitary left acetabular lesion, SUV 4.4. The appearance was unchanged from the previous study in February 2018. There were no new osseous lesions and there was no evidence of other metastatic disease. She continued treatment with fulvestrant in combination with ribociclib. At her follow-up visit in January 2019 the ribociclib and the denosumab were put on hold due to development of a skin eruption involving the lower extremities. The fulvestrant, though, was continued monthly. Her symptoms improved and she then restarted the denosumab injections. As of 04/03/2019 her CA 27.29 had declined to 18.52 U/mL. Her other medical illnesses include hypertension and type 2 diabetes. She also has history of cardiac arrhythmia. She has had previous surgery on her left ear, apparently for hearing loss. She is a nonsmoker. INTERIM HISTORY: As of her follow-up visit in September 2020 there was an increase in her CA 27-29 level to 86 U/mL. However, she appeared stable clinically, and she continued hormonal therapy with fulvestrant injections monthly along with monthly denosumab injections. She is seen for a follow-up visit. She has been feeling okay. She has pretty good energy, and she has continued to maintain normal activity. ECOG score is 0. Her appetite is good. She has no fever, night sweats, or hot flashes. She has no shortness of breath, cough, or chest pain. She has no GI complaints. She does have some urinary frequency with urgency and incontinence. She has no significant joint or bone pain. She does not complain of headache or dizziness. She has no focal neurologic symptoms. Her daughter indicates that she is having some issues with memory and cognitive function. Medications: AmLODIPine Besylate 1 (5 mg) Tablet Oral daily, Aspirin 1 (325 mg) Tablet Oral daily, Atenolol 1 (50 mg) Tablet Oral daily, Ergocalciferol 1 (35163 Units) Capsule Oral q 4 weeks, GlipiZIDE 1 (5 mg) Tablet Oral b.i.d., Lasix 1 Tablet (of 40 mg) Oral daily, MetFORMIN HCl 2 (500 mg) Tablet Oral b.i.d. Allergies: Anastrozole, Antihistamines, Chlorpheniramine-type, IVP dye, Lincocin, Penicillins, and Tamoxifen Citrate. Vital Signs: Performed on Jan 12, 2021 11:51 Height - 66.00 in Weight - 187.2 lbs (HIGH) BSA - 1.94 sq.m BMI - 30.22 (HIGH) Temperature - 98.7 F Pulse - 85 /min Respiration - 18 /min BP - 148/80 mm(hg) (HIGH) O2 Sat - 97 % Pain - 0 Fatigue - 0 Physical Examination: Constitutional - She looks good generally, Eyes - Sclerae nonicteric. Conjunctivae clear, ENMT - No lesions noted in the oral cavity, Hematologic/Lymphatic - No cervical or clavicular adenopathy, Respiratory - Lungs are clear with good air movement bilaterally, Cardiovascular - Heart rhythm is regular. There is no murmur, gallop, or rub noted, Breasts - There are no lesions noted in the left chest wall. There is no axillary adenopathy noted, Abdomen - Soft. Liver and spleen are not enlarged. There is no abdominal mass or ascites noted and there is no inguinal adenopathy, Extremities - There is mild lower extremity edema and slight erythema, Neurologic - No focal neurologic deficits noted. Lab/Imaging: CBC shows hemoglobin 13.0 g, white blood cell count 11,900, and platelet count 309,000. Comprehensive metabolic profile shows stable renal function with BUN 17 and creatinine 0.8 mg/dL. Bilirubin and liver enzymes are normal. The CA 27-29 level has increased to 274 U/mL. Problem List: 1. Metastatic breast cancer, ER/CA positive and HER-2/jesu negative. 2. Hypertension. 3. Type II diabetes. 4. She has a history of cardiac arrhythmia. Problems Addressed with this Encounter and Plan: Patient with metastatic breast cancer, ER/CA positive and HER-2/jesu negative. She had undergone left mastectomy in February 1999. She had local recurrence in the chest wall in March 2010, confirmed by biopsy. At that time there were multiple sites of bone involvement by PET/CT. She had a very good clinical response to treatment with tamoxifen. In September 2013 she developed a hypersensitivity reaction, and her treatment was then changed to anastrozole. In December 2014 when she presented to the emergency room with multiple neurologic symptoms which included numbness in both hands, the right leg, and her tongue. TIA was suspected, though her subsequent evaluation was unremarkable, and I really felt that the symptoms were more likely due to anastrozole. The anastrozole was stopped, and the symptoms completely resolved. As of February 2015 she restarted hormonal therapy with exemestane. She tolerated it with no adverse effects. In January 2018 an MRI of the pelvis was suspicious for a left anterior acetabulum-lateral superior pubic ramus neoplastic lesion. She was given radiation to the left hip area, completed on 01/27/2018 to a total dose of 3000 cGy. Her staging PET/CT on 02/04/2018 showed an FDG avid solitary lytic osseous lesion at the anterior left acetabulum. There were no other areas of abnormal uptake on that study. She began treatment with fulvestrant in combination with ribociclib in February 2018. As of her follow-up visit in January 2019 the ribociclib and the denosumab were put on hold due to development of a skin eruption in the lower extremities. She did require antibiotic therapy for cellulitis, and she also required diuretic therapy for swelling, but it gradually resolved. She had otherwise been stable clinically. She then continued treatment with fulvestrant 500 mg by intramuscular injection monthly together with denosumab injections for the metastatic bone involvement. The ribociclib remained on hold. During subsequent follow-up she has tolerated her treatment very well. Her overall clinical status has remained stable. However, there has been a progressive increase in her CA 27-29 level, which is now up to 274 U/mL compared to 86 U/mL in September 2020 and to 40 U/mL back in April 2020, consistent with progression of the breast cancer. At least for now, she will continue her same treatment, but she will be scheduled for restaging PET/CT. She will have further evaluation as indicated. Signed By: Mo Sales M.D. <<Signature on File>>
== END 2021-01-12 06:09 | disposition home or self-care (01) ==
LOC: ONCMED 06:10
PROVIDERS: PCP Family Medicine; Visit Provider Internal Medicine Medical Oncology
DX: Z51.11 Encounter for antineoplastic chemotherapy (principal); C50.812 Malignant neoplasm of overlapping sites of left female breast; Z17.0 Estrogen receptor positive status [ER+]; C79.51 Secondary malignant neoplasm of bone; I10 Essential (primary) hypertension; E11.9 Type 2 diabetes mellitus without complications; I49.9 Cardiac arrhythmia, unspecified; Z79.811 Long term (current) use of aromatase inhibitors; Z79.899 Other long term (current) drug therapy; Z92.21 Personal history of antineoplastic chemotherapy; Z92.3 Personal history of irradiation
CPT/HCPCS: 96372; 96402; 99214; J0897; J9395

== ENCOUNTER 2021-01-23 05:35 | Outpatient (CLI) | payer MEDICARE, OTHER, SELFPAY ==
--- NOTE | 2021-01-23 10:50 | ONC FU_ITS ---
Dr. Sales Patient Follow-Up Note Patient: Jessenia Navarro Unit #: [id number]: [id number] Dicatated By: Mo Sales M.D.Date of Visit:Jan 23, 2021 Onc Med Follow-up/Prog Note Chief Complaint: Breast cancer. History of Present Illness: This is an 80 year-old woman with metastatic breast cancer, ER/ID positive and HER-2/jesu negative. 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 Pathology at that time showed grade 2 infiltrating ductal carcinoma with the largest tumor measuring 1.3 cm. It was reported to be ER positive/ID negative and HER-2/jesu negative. There was no involvement in 16 axillary lymph nodes. She did not receive any adjuvant therapy. She had presented in March 2010 with an erythematous nodule in the upper left chest wall. Excisional biopsy did confirm metastatic adenocarcinoma consistent with metastatic breast cancer. That tumor was ER positive at 93% and ID positive at 100%. It was negative for overexpression of HER-2/jesu by IHC and by FISH. A staging PET/CT showed multiple sites of bone involvement. She was then started on hormonal therapy, initially with Aromasin. She tolerated it very poorly. As of May 2010 her treatment was changed to tamoxifen. She has had a very good response by followup bone scan. She had been tolerating it very well, but in September 2013 she came in with a generalized skin eruption which clinically appeared consistent with hypersensitivity reaction to the tamoxifen, and at that point it was discontinued. As of August 2013 her hormonal treatment was changed to anastrazole. She had presented to the emergency room in December 2014 with numbness on her right side. At that time there was evidence of facial droop and she also had reported impaired speech. She had been having symptoms for several days. Her blood pressure was significantly elevated. A noncontrast head CT at that time showed no acute findings. At that time it was suspected that she had a TIA and/or possible radiculopathy. There did not appear to be any indication for hospital admission. She started amlodipine for the hypertension and she also started low-dose aspirin. I was contacted at the time, and I also did recommend that she stop the anastrozole. During follow-up the symptoms did resolve. Her subsequent evaluation included echocardiogram which showed mild diffuse hypokinesis of the septum and the anteroseptal segments, but with normal left ventricular ejection fraction at 50-55%. Carotid artery duplex showed minimal scattered plaques and intimal thickening bilaterally with no significant stenosis. MRI of the brain showed a remote lacunes in the left thalamus and left caudate nucleus with mild age-related atrophy and small vessel ischemic changes. 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 There was no evidence of metastatic disease. I had seen her for a follow-up visit in February 2015. At that point she had no residual symptoms, and she then restarted hormonal therapy with exemestane. had seen her for a follow-up visit on 11/14/2017. At that time she was having some new pain in her left lower back and left leg. She had attributed to a pinched nerve , but it was really not getting better. A bone scan on 11/16/2017 showed no evidence of new or progressed osseous metastatic disease. A previously described lesion in the left acetabulum appeared stable compared to 2010. She had further evaluation with MRI of the lumbar spine on 12/15/2017. It showed abnormal marrow signal throughout the thoracic and lumbar vertebral bodies but without enhancement and without associated marrow edema. As such, it appeared unlikely to be due to metastatic disease. There was no evidence of cord or nerve root compression. There were mild to moderate degenerative changes. 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 Considerations included indolent metastatic deposit or indolent primary bone neoplasm. An associated superior pubic ramus pathologic fracture was not excluded. There was no evidence of other metastatic disease on that study. Given those findings in the setting of persistent pain, she was referred to Dr. Ybarra for palliative radiation. She completed treatment to the left hip on 01/27/2018 to a total dose of 3000 cGy. She had further staging with PET/CT on 02/04/2018. It showed a solitary hypermetabolic lytic osseous lesion at the anterior left acetabulum, SUV 4.7. There were no other areas of osseous metastases and there were no soft tissue malignant lesions noted. She then began further systemic therapy with fulvestrant in combination with ribociclib. She also began monthly denosumab injections for the metastatic bone involvement. Restaging PET/CT on 08/12/2018 showed stable findings with FDG avid solitary left acetabular lesion, SUV 4.4. The appearance was unchanged from the previous study in February 2018. There were no new osseous lesions and there was no evidence of other metastatic disease. She continued treatment with fulvestrant in combination with ribociclib. At her follow-up visit in January 2019 the ribociclib and the denosumab were put on hold due to development of a skin eruption involving the lower extremities. The fulvestrant, though, was continued monthly. Her symptoms improved and she then restarted the denosumab injections. As of 04/03/2019 her CA 27.29 had declined to 18.52 U/mL. Her other medical illnesses include hypertension and type 2 diabetes. She also has history of cardiac arrhythmia. She has had previous surgery on her left ear, apparently for hearing loss. She is a nonsmoker. INTERIM HISTORY: As of her follow-up visit in September 2020 there was an increase in her CA 27-29 level to 86 U/mL. However, she appeared stable clinically, and she continued hormonal therapy with fulvestrant injections monthly along with monthly denosumab injections. As of her follow-up visit on 01/12/2021 there is still no significant change in her clinical status, but there was further increase in her CA 27-29 level to 274 U/mL. With that finding, she had restaging PET/CT on 01/17/2021. It showed interval development of multifocal hepatic metastatic disease involving both the left and right hepatic lobes with SUVs in the range of 8.0-8.3. The anterior left acetabular lesion had become FDG negative and was densely sclerotic. Multiple densely sclerotic sternal, thoracic spine and lumbar spine lesions were also FDG negative and consistent with treated osseous metastatic disease. A new lytic superior acetabular lesion had SUV of 5.3 indicative of a new site of metastatic disease. She returns today for review of the PET/CT results and to discuss further management of the breast cancer. She is still feeling good generally. In her words she is fit as a fiddle . She has good energy/activity tolerance with ECOG score 0. Her appetite is good. She has no fever, night sweats, or hot flashes. She walks with a bit of a limp, but she still has no significant joint or bone pain. Medications: AmLODIPine Besylate 1 (5 mg) Tablet Oral daily, Aspirin 1 (325 mg) Tablet Oral daily, Atenolol 1 (50 mg) Tablet Oral daily, Ergocalciferol 1 (02329 Units) Capsule Oral q 4 weeks, GlipiZIDE 1 (5 mg) Tablet Oral b.i.d., Lasix 1 Tablet (of 40 mg) Oral daily, MetFORMIN HCl 2 (500 mg) Tablet Oral b.i.d. Allergies: Anastrozole, Antihistamines, Chlorpheniramine-type, IVP dye, Lincocin, Penicillins, and Tamoxifen Citrate. Vital Signs: Performed on Jan 23, 2021 09:02 Height - 66.00 in Weight - 187 lbs (LOW) BSA - 1.94 sq.m BMI - 30.18 (HIGH) Temperature - 97.5 F (LOW) Pulse - 93 /min Respiration - 18 /min BP - 175/88 mm(hg) (HIGH) O2 Sat - 98 % Pain - 0 Fatigue - 0 Problem List: 1. Metastatic breast cancer, ER/ID positive and HER-2/jesu negative. 2. Hypertension. 3. Type II diabetes. 4. She has a history of cardiac arrhythmia. Problems Addressed with this Encounter and Plan: Patient with metastatic breast cancer, ER/ID positive and HER-2/jesu negative. She had undergone left mastectomy in February 1999. She had local recurrence in the chest wall in March 2010, confirmed by biopsy. At that time there were multiple sites of bone involvement by PET/CT. She had a very good clinical response to treatment with tamoxifen. In September 2013 she developed a hypersensitivity reaction, and her treatment was then changed to anastrozole. In December 2014 when she presented to the emergency room with multiple neurologic symptoms which included numbness in both hands, the right leg, and her tongue. TIA was suspected, though her subsequent evaluation was unremarkable, and I really felt that the symptoms were more likely due to anastrozole. The anastrozole was stopped, and the symptoms completely resolved. As of February 2015 she restarted hormonal therapy with exemestane. She tolerated it with no adverse effects. In January 2018 an MRI of the pelvis was suspicious for a left anterior acetabulum-lateral superior pubic ramus neoplastic lesion. She was given radiation to the left hip area, completed on 01/27/2018 to a total dose of 3000 cGy. Her staging PET/CT on 02/04/2018 showed an FDG avid solitary lytic osseous lesion at the anterior left acetabulum. There were no other areas of abnormal uptake on that study. She began treatment with fulvestrant in combination with ribociclib in February 2018. As of her follow-up visit in January 2019 the ribociclib and the denosumab were put on hold due to development of a skin eruption in the lower extremities. She did require antibiotic therapy for cellulitis, and she also required diuretic therapy for swelling, but it gradually resolved. She had otherwise been stable clinically. She then continued treatment with fulvestrant 500 mg by intramuscular injection monthly together with denosumab injections for the metastatic bone involvement. The ribociclib remained on hold. During subsequent follow-up she has tolerated her treatment very well. Her overall clinical status has remained stable. However, as of her followup visit on 01/12/2021 there was a significant further increase in her CA 27-29 level, up to 274 U/mL compared to 86 U/mL in September 2020 and to 40 U/mL back in April 2020, consistent with progression of the breast cancer. Her restaging PET/CT on 01/17/2021 showed development of multiple FDG avid lesions involving both hepatic lobes, consistent with metastatic disease. There was a new site of lytic bone involvement in the superior left acetabulum. The remainder of the bony lesions were sclerotic and FDG negative, consistent with treated metastatic disease. In the setting of obvious disease progression which is now refractory to endocrine therapy, she will proceed now to a trial of chemotherapy with single agent Xeloda. It will be administered on a 7 days on/7 days off schedule to reduce risk of toxicity. I reviewed the potential side effects which may include nausea/vomiting, mucositis, diarrhea, fatigue, low blood counts, and hand/foot syndrome, among others. Her treatment will be started pending verification of insurance coverage. In the meantime, I also will request a next generation sequencing study by liquid biopsy, mainly to screen for the [id number] mutation. Signed By: Mo Sales M.D. <<Signature on File>>
== END 2021-01-23 05:36 | disposition home or self-care (01) ==
LOC: ONCMED 05:38
PROVIDERS: PCP Family Medicine; Visit Provider Internal Medicine Medical Oncology
DX: C50.912 Malignant neoplasm of unspecified site of left female breast (principal); Z17.0 Estrogen receptor positive status [ER+]; C79.51 Secondary malignant neoplasm of bone; Z79.899 Other long term (current) drug therapy; Z90.12 Acquired absence of left breast and nipple
CPT/HCPCS: 36415; 99215

== ENCOUNTER 2021-02-25 06:37 | Outpatient (CLI) | payer MEDICARE, OTHER, SELFPAY ==
[2021-02-25] MEDS: fulvestrant 250 mg/5 mL Syringe 500 MG IM (09:38)
[2021-02-25] MEDS: denosumab 120 mg SDV SUBCUT (09:42)
[2021-02-25 09:53] LABS: Basophils # 0.1 10^3/uL (0.0-0.1); Basophils % 0.5 %; Eosinophils # 0.5 10^3/uL (0.0-0.8); Eosinophils % 3.7 %; Hematocrit 40.9 % (37.0-47.0); Hemoglobin 13.1 g/dL (11.5-15.3); Lymphocytes # 3.6 10^3/uL (0.8-4.8); Lymphocytes % 28.9 %; Mean Corpuscular Hemoglobin 28.2 pg (28.0-34.0); Monocytes # 1.3 10^3/uL (0.2-0.9); Monocytes % 10.1 %; Neutrophils # 6.91 10^3/uL (1.8-7.7); Neutrophils % 56.1 %; Nucleated Red Blood Cells % 0 %; Platelet Count 326 10^3/cmm (130-400); Red Blood Count 4.65 10^6/uL (4.1-5.3); Red Cell Distribution Width 13.4 % (12.1-15.1); White Blood Count 12.3 10^3/uL (4.0-10.0)
[2021-02-25 10:04] LABS: Estmated Average Glucose 171; Hemoglobin A1C 7.6 % (4.0-6.0)
[2021-02-25 10:35] LABS: Alanine Aminotransferase 35 U/L (0-33); Albumin Level 3.9 g/dL (3.5-5.2); Alkaline Phosphatase 118 IU/L (35-105); Anion Gap 19.3 (5-19); Aspartate Amino Transferase 47 U/L (0-32); Blood Urea Nitrogen 24 mg/dL (8-23); Calcium 9.4 mg/dL (8.5-10.5); Carbon Dioxide 23 mmol/L (22-29); Chloride 97 mmol/L (98-107); Glucose 148 mg/dL (65-115); Osmolality Calculated 287 mOsm/kg (285-295); Potassium 4.3 mmol/L (3.5-5.1); Sodium 135 mmol/L (136-145); Total Bilirubin 0.4 mg/dL (0.15-1.2); Total Protein 7.9 g/dL (6.6-8.7)
== END 2021-02-25 06:38 | disposition home or self-care (01) ==
LOC: ONCMED 06:37
PROVIDERS: PCP Family Medicine; Visit Provider Internal Medicine Medical Oncology
DX: Z51.11 Encounter for antineoplastic chemotherapy (principal); C50.812 Malignant neoplasm of overlapping sites of left female breast; Z17.0 Estrogen receptor positive status [ER+]; C79.51 Secondary malignant neoplasm of bone; Z79.811 Long term (current) use of aromatase inhibitors
CPT/HCPCS: 36415; 80053; 83036; 85025; 96372; 96402; J0897; J9395

== ENCOUNTER 2021-03-02 08:56 | Outpatient (CLI) | payer MEDICARE, OTHER, SELFPAY | END 2021-03-02 08:57 | disposition home or self-care (01) | LOC: ONCMED 08:59 | PROVIDERS: PCP Family Medicine; Visit Provider Internal Medicine Medical Oncology | DX: E11.9 Type 2 diabetes mellitus without complications (principal); C50.812 Malignant neoplasm of overlapping sites of left female breast; C79.51 Secondary malignant neoplasm of bone; Z17.0 Estrogen receptor positive status [ER+]; Z79.811 Long term (current) use of aromatase inhibitors; R60.0 Localized edema; Z79.4 Long term (current) use of insulin | CPT/HCPCS: 96372; J1815 ==

== ENCOUNTER 2021-03-16 07:58 | Outpatient (CLI) | payer MEDICARE, OTHER, SELFPAY ==
[2021-03-16 08:42] LABS: Basophils # 0.1 10^3/uL (0.0-0.1); Basophils % 0.6 %; Eosinophils # 0.7 10^3/uL (0.0-0.8); Eosinophils % 5.8 %; Hematocrit 41.6 % (37.0-47.0); Hemoglobin 13.4 g/dL (11.5-15.3); Lymphocytes # 3.3 10^3/uL (0.8-4.8); Mean Corpuscular HGB Conc 32.2 g/dL (30.0-36.0); Mean Corpuscular Hemoglobin 28.2 pg (28.0-34.0); Mean Corpuscular Volume 87.6 fl (81-99); Mean Platelet Volume 10.9 fL (7.4-10.4); Monocytes # 1.5 10^3/uL (0.2-0.9); Monocytes % 11.9 %; Neutrophils # 6.56 10^3/uL (1.8-7.7); Neutrophils % 53.8 %; Nucleated Red Blood Cells % 0 %; Platelet Count 304 10^3/cmm (130-400); Red Blood Count 4.75 10^6/uL (4.1-5.3); Red Cell Distribution Width 13.5 % (12.1-15.1); White Blood Count 12.2 10^3/uL (4.0-10.0)
[2021-03-16 08:57] LABS: Bilirubin Urine Neg (Negative); Blood Urine Neg (Negative); Glucose Urine UA Norm (Normal); Ketones Urine Negative (Negative); Leukocyte Esterase Urine 2+ (Negative); Nitrate Urine Negative (Negative); Protein Urine Neg (Negative); Urine Appearance SL Hazy (CLEAR); Urine Color Yellow (Yellow); Urobilinogen Urine Norm (Negative); pH Urine 5 (5-7)
[2021-03-16 08:58] LABS: Add Urine Culture? No; Bacteria Urine 1+ /hpf; Squamous Epithelial Cell Urine 15-25 /hpf (0-5); WBC Urine 15-25 /hpf (0-5)
[2021-03-16 09:15] LABS: Alanine Aminotransferase 43 U/L (0-33); Albumin Level 3.9 g/dL (3.5-5.2); Alkaline Phosphatase 117 IU/L (35-105); Anion Gap 17.3 (5-19); Aspartate Amino Transferase 56 U/L (0-32); Blood Urea Nitrogen 21 mg/dL (8-23); Calcium 9.4 mg/dL (8.5-10.5); Carbon Dioxide 26 mmol/L (22-29); Chloride 100 mmol/L (98-107); Glucose 90 mg/dL (65-115); Osmolality Calculated 291 mOsm/kg (285-295); Potassium 4.3 mmol/L (3.5-5.1); Sodium 139 mmol/L (136-145); Total Bilirubin 0.7 mg/dL (0.15-1.2); Total Protein 7.9 g/dL (6.6-8.7)
--- NOTE | 2021-03-16 17:39 | ONC FU_ITS ---
[facility] Patient Note Patient: Jessenia Navarro Unit #: [id number]: 1940 Dictated By: Christine VelazquezDate of Visit: Mar 16, 2021 Onc MED Follow-Up/Prog Note Chief Complaint: Breast cancer. History of Present Illness: Ms Navarro is an 80 year-old woman with metastatic breast cancer, ER/NY positive and HER-2/jesu negative. 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 Pathology at that time showed grade 2 infiltrating ductal carcinoma with the largest tumor measuring 1.3 cm. It was reported to be ER positive/NY negative and HER-2/jesu negative. There was no involvement in 16 axillary lymph nodes. She did not receive any adjuvant therapy. She had presented in March 2010 with an erythematous nodule in the upper left chest wall. Excisional biopsy did confirm metastatic adenocarcinoma consistent with metastatic breast cancer. That tumor was ER positive at 93% and NY positive at 100%. It was negative for overexpression of HER-2/jesu by IHC and by FISH. A staging PET/CT showed multiple sites of bone involvement. She was then started on hormonal therapy, initially with Aromasin. She tolerated it very poorly. As of May 2010 her treatment was changed to tamoxifen. She has had a very good response by followup bone scan. She had been tolerating it very well, but in September 2013 she came in with a generalized skin eruption which clinically appeared consistent with hypersensitivity reaction to the tamoxifen, and at that point it was discontinued. As of August 2013 her hormonal treatment was changed to anastrazole. She had presented to the emergency room in December 2014 with numbness on her right side. At that time there was evidence of facial droop and she also had reported impaired speech. She had been having symptoms for several days. Her blood pressure was significantly elevated. A noncontrast head CT at that time showed no acute findings. At that time it was suspected that she had a TIA and/or possible radiculopathy. There did not appear to be any indication for hospital admission. She started amlodipine for the hypertension and she also started low-dose aspirin. Dr Sales was contacted at the time and did recommend that she stop the anastrozole. During follow-up the symptoms did resolve. Her subsequent evaluation included echocardiogram which showed mild diffuse hypokinesis of the septum and the anteroseptal segments, but with normal left ventricular ejection fraction at 50-55%. Carotid artery duplex showed minimal scattered plaques and intimal thickening bilaterally with no significant stenosis. MRI of the brain showed a remote lacunes in the left thalamus and left caudate nucleus with mild age-related atrophy and small vessel ischemic changes. 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 There was no evidence of metastatic disease. Dr Sales had seen her for a follow-up visit in February 2015. At that point she had no residual symptoms, and she then restarted hormonal therapy with exemestane. Dr Sales had seen her for a follow-up visit on 11/14/2017. At that time she was having some new pain in her left lower back and left leg. She had attributed to a pinched nerve , but it was really not getting better. A bone scan on 11/16/2017 showed no evidence of new or progressed osseous metastatic disease. A previously described lesion in the left acetabulum appeared stable compared to 2010. She had further evaluation with MRI of the lumbar spine on 12/15/2017. It showed abnormal marrow signal throughout the thoracic and lumbar vertebral bodies but without enhancement and without associated marrow edema. As such, it appeared unlikely to be due to metastatic disease. There was no evidence of cord or nerve root compression. There were mild to moderate degenerative changes. 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 Considerations included indolent metastatic deposit or indolent primary bone neoplasm. An associated superior pubic ramus pathologic fracture was not excluded. There was no evidence of other metastatic disease on that study. Given those findings in the setting of persistent pain, she was referred to Dr. Ybarra for palliative radiation. She completed treatment to the left hip on 01/27/2018 to a total dose of 3000 cGy. She had further staging with PET/CT on 02/04/2018. It showed a solitary hypermetabolic lytic osseous lesion at the anterior left acetabulum, SUV 4.7. There were no other areas of osseous metastases and there were no soft tissue malignant lesions noted. She then began further systemic therapy with fulvestrant in combination with ribociclib. She also began monthly denosumab injections for the metastatic bone involvement. Restaging PET/CT on 08/12/2018 showed stable findings with FDG avid solitary left acetabular lesion, SUV 4.4. The appearance was unchanged from the previous study in February 2018. There were no new osseous lesions and there was no evidence of other metastatic disease. She continued treatment with fulvestrant in combination with ribociclib. At her follow-up visit in January 2019 the ribociclib and the denosumab were put on hold due to development of a skin eruption involving the lower extremities. The fulvestrant, though, was continued monthly. Her symptoms improved and she then restarted the denosumab injections. As of 04/03/2019 her CA 27.29 had declined to 18.52 U/mL. Her other medical illnesses include hypertension and type 2 diabetes. She also has history of cardiac arrhythmia. She has had previous surgery on her left ear, apparently for hearing loss. She is a nonsmoker. INTERIM HISTORY: As of her follow-up visit in September 2020 there was an increase in her CA 27-29 level to 86 U/mL. However, she appeared stable clinically, and she continued hormonal therapy with fulvestrant injections monthly along with monthly denosumab injections. As of her follow-up visit on 01/12/2021 there is still no significant change in her clinical status, but there was further increase in her CA 27-29 level to 274 U/mL. With that finding, she had restaging PET/CT on 01/17/2021. It showed interval development of multifocal hepatic metastatic disease involving both the left and right hepatic lobes with SUVs in the range of 8.0-8.3. The anterior left acetabular lesion had become FDG negative and was densely sclerotic. Multiple densely sclerotic sternal, thoracic spine and lumbar spine lesions were also FDG negative and consistent with treated osseous metastatic disease. A new lytic superior acetabular lesion had SUV of 5.3 indicative of a new site of metastatic disease. She returned for followup with Dr Sales on for review of the PET/CT results and to discuss further management of the breast cancer on January 23, 2021. She was still feeling good generally. In her words she was fit as a fiddle . She had good energy/activity tolerance with ECOG score 0. She was started on alpelisib (Piqray) as her Next generation sequencing from [place] [id number] reported a PIK3CA M6522B mutation that is actionable. This makes her a candidate for the alpelisib. She also had PTEN R15fs and CDH1 F626fs which have no approved FDA therapies. Her tumor mutational burden was 13.4 mut/MB. She was BRCA 1 and 2 - HER-2/jesu negative. She was started on the alpelisib 2 tablets of the 150 mg tablets for a total of 300 mg daily on 02/25/2021. Her last dose of Fosamax and denosumab were also on February 25, 2021. She called in on February 27, 2021 with a fasting glucose of 346 lunch glucose of 305 and bedtime was 421. She was started on Levemir 10 units at that time in addition to her Metformin 1000 mg twice daily and glipizide 5 mg twice daily. She continued to have sporadic elevated glucose in the 400 range up to 472 her Levemir was increased to 20 units and she was brought in to the clinic for a insulin shot with regular insulin 14 units on 09/30/2020. On 03/02/2021 her alpelisib was placed on hold until her blood sugars were controlled. On 03/10/2021 Mrs. Laboy daughter, Charis, called stating that her blood sugars continue to be all over the place . She was advised to eat regular mealtimes and to do sliding scale insulin with 10 units prior to each meal. She is here today for follow-up. Her blood sugars continue to be somewhat sporadic but she states that with taking the NovoLog 10 units before meals her blood sugars bottomed and she felt terrible. Her glucose has been running from a high of 259 last night to a low of 62 at noon on March 13. She is not taking the NovoLog 10 units before meals. She does continue on the Levemir 20 units and the Metformin 1000 mg twice daily and the glipizide 5 mg twice daily. She had a few episodes of uncontrolled bad diarrhea she states about the time she started the alpelisib but that is only occurred a couple of times. She states she is just weak and washed out. Ms. Navarro' daughter also reports that Ms Navarro has not been thinking right and been a little confused at times . Ms. Navarro denies any headache or vision changes. She states she is 80 years old tends to forget things once in a while. She is no longer getting out in her yard which she loves to do. She states she has not been able to work on her yard or luna because she just does not have energy and just does not feel good. She denies any fever or chills. She is had no nausea or vomiting. Her daughter states that she is eating they are watching her carbs and she is eating better and feels that that has improved. She is only had the one episode of diarrhea and states that her bowels are moving well and they are soft she does not eating a lot so they are not as normal as they usually are. She denies any pain. She is had no fever or chills she denies mouth sores. She denies any rash. Her ECOG is 2. Ms. Navarro daughter did request a UA today because she had been having some urinary frequency and urinary odor which is new for her. Her UA was abnormal and that it did show 1+ bacteria and 2+ leukocyte Estrace. CANCER TREATMENT HISTORY: 1. February 1999: left modified radical mastectomy 2. March 2020: Left upper chest nodule excisional biopsy confirmed metastatic adenocarcinoma consistent with metastatic breast cancer ER +93 [place] positive at 100% was negative for HER-2/jesu. She also had PET/CT staging which showed sites of multiple bone involvement. She was started on hormonal therapy initially with Aromasin which she tolerated poorly and was changed to tamoxifen. She presented in September 2013 with generalized skin eruption consistent with a hypersensitivity reaction to tamoxifen. 3. August 2013 hormonal treatment was changed to anastrozole. 4. She presented to the ER on December 2014 with numbness on her right side evidence of facial droop and impaired speech. The anastrozole was stopped. 5. She was seen back for follow-up in February 2015 and had no residual symptoms of the numbness on the right side, facial droop or impaired speech. She was restarted on hormonal therapy with exemestane at that time. November 2017 she began having pain in the left lower back and left leg. Bone scan on 11/16/2017 showed no evidence of new or progressed osseous metastatic bone disease. There is no evidence of cord or nerve root compression on MRI from 12/15/2017. An MRI on 01/05/2018 showed findings compatible with left anterior acetabulum/lateral superior pubic ramus neoplastic lesion. She was treated for palliative radiation to a total dose of 3000 cGy to the left hip completed on 01/27/2018. 6. February 2018 she began further systemic therapy with fulvestrant and combination with ribociclib and monthly denosumab injections for the metastatic bone disease. 7. January 2019 the ribociclib and the denosumab were placed on hold due to skin eruption and lower extremities she was able to resume the denosumab without the skin eruptions. She did continue the fulvestrant as well. the ribociclib was discontinued. 8. September 2020 -she had increase of her CA 27-29 to 86 and she did appear stable clinically but she continue with hormonal therapy with fulvestrant injections along with monthly denosumab injections. 9. January 17, 2021: repeat PET/CT which showed interval development of multi focal hepatic metastatic disease involving the left and right hepatic lobes with SUVs in the range of 8-8.3. There was a new lytic superior acetabulum lesion of SUV of 5.3 indicated of new site of metastatic disease other old sites were FDG negative consistent with treated osseous metastatic disease. She was started on alpelisib 300 mg daily on 02/25/2021 for PIK3CA mutation which she has tolerated poorly thus far due to hyperglycemia. The alpelisib is currently on hold. Past Medical History: Hypertension Osteoarthritis Overactive bladder Type II diabetes Cancer (left breast) in 1998 (Treated) Past Surgical History: Covid vaccine #1 moderna in 2020 Flu vaccine 2020 in 2019 - right deltoid Flu vaccine in 2019 - right deltoid Pneumonia vaccine in 2019 Flu Vaccine in 2018 Colonoscopy in 2009 Breast surgery in 1998 D & C in 1998 Ear sugery in 1992 Cholecystectomy in 1977 Tonsillectomy in 1958 Allergies: Anastrozole, Antihistamines, Chlorpheniramine-type, IVP dye, Lincocin, Penicillins, and Tamoxifen Citrate. Medications: AmLODIPine Besylate 1 (5 mg) Tablet Oral daily Aspirin 1 (325 mg) Tablet Oral daily Atenolol 1 (50 mg) Tablet Oral daily Ergocalciferol 1 (84202 Units) Capsule Oral q 4 weeks GlipiZIDE 1 (5 mg) Tablet Oral b.i.d. Lasix 1 Tablet (of 40 mg) Oral daily Levemir 20 Unit(s) (of 100 Units/mL) Subcutaneous at bedtime MetFORMIN HCl 2 (500 mg) Tablet Oral b.i.d. Family History: Ms. Navarro's mother at age 53: cancer history consists of Cervical cancer while other medical history includes coronary artery disease (cause of ) and diabetes. Ms. Navarro's father at age 69: Heart disease, and Lupus. Ms. Navarro has 2 sisters: 2 unknown. Ms. Navarro's first sister's medical history includes diabetes. Another sister's medical history includes diabetes and Heart disease. She has 1 son who is : medical history includes Cardiomyopathy. Social History: Ms. Navarro is and she is retired. Ms. Navarro has never smoked. She has no history of drinking. Ms. Navarro reports the following support systems: lives with spouse, significant other, family, or friends, lives in own house, and adequate transportation available for expected visits. Her diet consists of regular meals. She indicates her activity level as: light exercise. Review Of Symptoms: <See Above> Vital Signs: Performed on Mar 16, 2021 10:23 Height - 66.00 in Weight - 181 lbs (LOW) BSA - 1.92 sq.m BMI - 29.21 Temperature - 96.5 F (LOW) Pulse - 92 /min Respiration - 18 /min BP - 139/84 mm(hg) O2 Sat - 96 % Pain - 0 Fatigue - 5,2 - Ambulatory/capable of all self-care, unable to perform any work activities. Up and about more than 50% of waking hours. (ECOG) Physical Examination: Constitutional Alert, oriented, no acute distress. Skin pink, warm and dry. Head Normocephalic; atraumatic. Eyes Conjunctivae and sclerae are clear and without icterus. Pupils are reactive and equal. ENMT No oral exudates, ulcers, masses, thrush or mucositis. Oropharynx clear. Tongue normal. Neck Supple without masses or thyromegaly. No jugular venous distension. Hematologic/Lymphatic No petechiae or purpura. No tender or palpable lymph nodes in the cervical or supraclavicular areas. Respiratory Lungs are clear to auscultation without rhonchi or wheezing. Cardiovascular Regular rate and rhythm of heart without murmurs,clicks, gallops or rubs. Abdomen Non-tender, non-distended, no masses, ascites. No guarding or rebound tenderness. No pulsatile masses. Back/Spine Non-tender to palpation. Extremities No visible deformities, no cyanosis, clubbing or edema. Musculoskeletal No tenderness or swelling, normal range of motion without obvious weakness. Integumentary No rashes or lesions. Neurologic No sensory or motor deficits, normal cerebellar function, normal for her gait. Psychiatric Alert and oriented times three. Coherent speech. Verbalizes understanding of our discussions today. Laboratory:Test performed on Mar 16, 2021 08:25 Ua Color Yellow Ua Appearance SL Hazy Ua pH 5 Ua Specific Jewett 1.020 Ua Glucose Norm Ua Ketones Negative Ua Protein Neg Ua Blood Neg Ua Bilirubin Neg Ua Nitrites Negative Ua Leukocyte Esterase 2+ Ua Micro: WBC 15-25 /hpf Ua Micro: RBC NONE /hpf Ua Micro: Squam Epith Cells 15-25 CULTURE NOT INDICATED DUE TO >10 EPITHELIAL CELLS PRESENT ON MICROSCOPIC EXAM. POSSIBLE SPECIMEN CONTAMINATION. /hpf Ua Micro: Bacteria 1+ /hpf Test performed on Mar 16, 2021 08:18 Sodium 139 mmol/L Potassium 4.3 mmol/L Chloride 100 mmol/L CO2 26 mmol/L Anion Gap 17.3 BUN 21 mg/dL Creatinine 0.6 mg/dL Cr Clearance (Est) 96.93 mL/min Glucose 90 mg/dL Osmolality - Calculated 291 mOsm/kg Calcium 9.4 mg/dL Protein, Total 7.9 g/dL Albumin 3.9 g/dL Globulin 4.0 g/dL Bilirubin, Total 0.7 mg/dL ALT (SGPT) 43 U/L AST (SGOT) 56 U/L Alkaline Phosphatase 117 IU/L WBC 12.2 10 3/uL RBC 4.75 10 6/uL HGB 13.4 g/dL HCT 41.6 % MCV 87.6 fl MCH 28.2 pg MCHC 32.2 g/dL RDW 13.5 % Platelet Count 304 10 3/cmm MPV 10.9 fL Neutrophils 6.56 10 3/uL Lymphocytes 3.3 10 3/uL Monocytes 1.5 10 3/uL Eosinophils 0.7 10 3/uL Basophils 0.1 10 3/uL Neutrophil % 53.8 % Lymphocyte % 27.0 % Monocyte % 11.9 % Eosinophil % 5.8 % Basophils % 0.6 % NRBC % 0 % Test performed on Feb 25, 2021 08:55 Est Avg Glucose (eAG) 171 mg/dL Hemoglobin A1C % 7.6 % Test performed on Oct 02, 2020 08:14 CA 27.29 86 U/mL Impression: 1. Metastatic breast cancer, ER/NY positive and HER-2/jesu negative. 2. Hypertension. 3. Type II diabetes. 4. She has a history of cardiac arrhythmia. Plan/Problems Addressed at this Visit: A. Metastatic breast cancer, ER/[place] positive and HER-2/jesu negative. She had undergone left mastectomy in February 1999. She had local recurrence in the chest wall in March 2010, confirmed by biopsy. At that time there were multiple sites of bone involvement by PET/CT. She had a very good clinical response to treatment with tamoxifen. In September 2013 she developed a hypersensitivity reaction, and her treatment was then changed to anastrozole. In December 2014 when she presented to the emergency room with multiple neurologic symptoms which included numbness in both hands, the right leg, and her tongue. TIA was suspected, though her subsequent evaluation was unremarkable, and I really felt that the symptoms were more likely due to anastrozole. The anastrozole was stopped, and the symptoms completely resolved. As of February 2015 she restarted hormonal therapy with exemestane. She tolerated it with no adverse effects. In January 2018 an MRI of the pelvis was suspicious for a left anterior acetabulum-lateral superior pubic ramus neoplastic lesion. She was given radiation to the left hip area, completed on 01/27/2018 to a total dose of 3000 cGy. Her staging PET/CT on 02/04/2018 showed an FDG avid solitary lytic osseous lesion at the anterior left acetabulum. There were no other areas of abnormal uptake on that study. She began treatment with fulvestrant in combination with ribociclib in February 2018. As of her follow-up visit in January 2019 the ribociclib and the denosumab were put on hold due to development of a skin eruption in the lower extremities. She did require antibiotic therapy for cellulitis, and she also required diuretic therapy for swelling, but it gradually resolved. She had otherwise been stable clinically. She then continued treatment with fulvestrant 500 mg by intramuscular injection monthly together with denosumab injections for the metastatic bone involvement. The ribociclib remained on hold. During subsequent follow-up she has tolerated her treatment very well. Her overall clinical status has remained stable. However, as of her followup visit on 01/12/2021 there was a significant further increase in her CA 27-29 level, up to 274 U/mL compared to 86 U/mL in September 2020 and to 40 U/mL back in April 2020, consistent with progression of the breast cancer. Her restaging PET/CT on 01/17/2021 showed development of multiple FDG avid lesions involving both hepatic lobes, consistent with metastatic disease. There was a new site of lytic bone involvement in the superior left acetabulum. The remainder of the bony lesions were sclerotic and FDG negative, consistent with treated metastatic disease. In the setting of obvious disease progression which is now refractory to endocrine therapy, Dr. Sales had initially thought should be a candidate for Xeloda however she did have next generation sequencing and was found to have a PIK3CA mutation ([id number]) and was started on alpelsib (Piqray) on 02-25-2021. She reports he did not tolerate this well due to hyperglycemia. However looking at her urinalysis from today and symptoms she has had over the last couple of weeks she could have had UTI increasing her glucose as well. 1. She will continue to hold the alpelisib for now. 2. Decrease metformin to 500 mg twice daily from 1000 mg twice daily (she has had some diarrhea and this may be contributing). 3. Hold Novolog before meals for now and continue Levimer at 20 units daily as she is currently taking it. 4. Labs from today reviewed in detail discussed with Mrs. Navarro and her daughter and a copy was given to them. White count is 12.2 hemoglobin 13.4 platelets 204,000, ANC is 67. Potassium 4.3 random glucose 90 creatinine 0.6 her ALT is 43 her AST is 56 and her alk phos is 117. These are essentially stable compared to her February 25 visit. Her UA was abnormal as above. She did have 2+ leukocytes with WBCs 15-25 and bacteria 1+. Her weight is now down to 181 from 187 on January 23, 2021. 5. I did discussed the PIK3CA mutation and the benefit of the alpelisib and her ER positive and need to continue the Fosamax as well. She understands that she also needs to continue the Xgeva. 6. She has follow-up scheduled for next week and will plan to keep that appointment and review her glucose log at that time. I did not ask for any additional labs to be repeated at that time as she has been keeping excellent records of her glucose. A copy of today's home glucose log will be scanned to her chart. 7. She is aware we want to get control of her glucose and then decide on rechallenging her with the alpelisib. She is willing to do this but thinks she will need a lower dose. 8. Ms Navarro was instructed to call us in the interim if questions or problems arise B ACUTE UTI 1. Will treat with 5 days of Bactrim DS BID. She has had elevated glucose as above and has had periods of not thinking right . We will reassess these symptoms in 1 week. 2. If her confusion is not better in 1 week, we will need to consider further work up in this patient with metastatic breast cancer. I did talk to her and her daughter about this as well. They are in agreement for further work up if treating her UTI does not improve her symptoms. Signed By: Christine Velazquez-, CN Mo Sales MD <<Signature on File>>
== END 2021-03-16 07:59 | disposition home or self-care (01) ==
PROVIDERS: Internal Medicine Medical Oncology; PCP Family Medicine; Visit Provider Nurse Practitioner
DX: C50.812 Malignant neoplasm of overlapping sites of left female breast (principal); Z17.0 Estrogen receptor positive status [ER+]; C78.7 Secondary malignant neoplasm of liver and intrahepatic bile duct; C79.51 Secondary malignant neoplasm of bone; I10 Essential (primary) hypertension; E11.9 Type 2 diabetes mellitus without complications; I49.9 Cardiac arrhythmia, unspecified; Z79.4 Long term (current) use of insulin; Z79.82 Long term (current) use of aspirin; Z79.811 Long term (current) use of aromatase inhibitors; Z79.899 Other long term (current) drug therapy; Z92.21 Personal history of antineoplastic chemotherapy; Z90.12 Acquired absence of left breast and nipple
CPT/HCPCS: 36415; 80053; 81001; 85025; 99214

== ENCOUNTER 2021-03-25 09:56 | Outpatient (CLI) | payer MEDICARE, OTHER, SELFPAY ==
[2021-03-25 10:55] LABS: Basophils # 0.1 10^3/uL (0.0-0.1); Basophils % 0.5 %; Eosinophils # 0.2 10^3/uL (0.0-0.8); Eosinophils % 2.3 %; Hematocrit 40.6 % (37.0-47.0); Lymphocytes # 2.9 10^3/uL (0.8-4.8); Lymphocytes % 27.1 %; Mean Corpuscular Hemoglobin 28.2 pg (28.0-34.0); Mean Corpuscular Volume 88.1 fl (81-99); Monocytes # 1.4 10^3/uL (0.2-0.9); Monocytes % 13.4 %; Neutrophils # 5.91 10^3/uL (1.8-7.7); Neutrophils % 56.1 %; Nucleated Red Blood Cells % 0 %; Platelet Count 316 10^3/cmm (130-400); Red Blood Count 4.61 10^6/uL (4.1-5.3); Red Cell Distribution Width 13.8 % (12.1-15.1); White Blood Count 10.5 10^3/uL (4.0-10.0)
[2021-03-25 11:18] LABS: Alanine Aminotransferase 51 U/L (0-33); Albumin Level 3.7 g/dL (3.5-5.2); Alkaline Phosphatase 132 IU/L (35-105); Anion Gap 19.7 (5-19); Aspartate Amino Transferase 63 U/L (0-32); Blood Urea Nitrogen 22 mg/dL (8-23); Calcium 9.1 mg/dL (8.5-10.5); Carbon Dioxide 22 mmol/L (22-29); Chloride 95 mmol/L (98-107); Glucose 307 mg/dL (65-115); Osmolality Calculated 289 mOsm/kg (285-295); Potassium 4.7 mmol/L (3.5-5.1); Sodium 132 mmol/L (136-145); Total Bilirubin 0.4 mg/dL (0.15-1.2); Total Protein 7.7 g/dL (6.6-8.7)
[2021-03-25 11:43] LABS: Urine Appearance Cloudy (CLEAR); Urine Color Yellow (Yellow); pH Urine 7 (5-7)
[2021-03-25 11:44] LABS: Glucose Urine UA 4+ (Normal); Ketones Urine 1+ (Negative); Nitrate Urine Negative (Negative); Protein Urine 1+ (Negative)
[2021-03-25 11:45] LABS: Bacteria Urine TRACE /hpf; Bilirubin Urine 2+ (Negative); Blood Urine Neg (Negative); Leukocyte Esterase Urine 2+ (Negative); Mucus Urine TRACE /hpf; RBC Urine 0-4 /hpf (0-2); Uric Acid Crystals Urine TOO NUMEROUS TO CNT /hpf; Urobilinogen Urine 4 mg/dL (Negative)
[2021-03-25 11:46] LABS: Add Urine Culture? No; Other Crystals Urine CYSTINE /hpf
[2021-03-25] MEDS: denosumab 120 mg SDV SUBCUT (12:40)
--- NOTE | 2021-03-25 19:42 | ONC FU_ITS ---
Dr. Sales Patient Follow-Up Note Patient: Jessenia Navarro Unit #: [id number]: [id number] Dicatated By: Mo Sales M.D.Date of Visit:Mar 25, 2021 Onc Med Follow-up/Prog Note Chief Complaint: Breast cancer. History of Present Illness: This is an 80 year-old woman with metastatic breast cancer, ER/RI positive and HER-2/jesu negative. 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 Pathology at that time showed grade 2 infiltrating ductal carcinoma with the largest tumor measuring 1.3 cm. It was reported to be ER positive/RI negative and HER-2/jesu negative. There was no involvement in 16 axillary lymph nodes. She did not receive any adjuvant therapy. She had presented in March 2010 with an erythematous nodule in the upper left chest wall. Excisional biopsy did confirm metastatic adenocarcinoma consistent with metastatic breast cancer. That tumor was ER positive at 93% and RI positive at 100%. It was negative for overexpression of HER-2/jesu by IHC and by FISH. A staging PET/CT showed multiple sites of bone involvement. She was then started on hormonal therapy, initially with Aromasin. She tolerated it very poorly. As of May 2010 her treatment was changed to tamoxifen. She has had a very good response by followup bone scan. She had been tolerating it very well, but in September 2013 she came in with a generalized skin eruption which clinically appeared consistent with hypersensitivity reaction to the tamoxifen, and at that point it was discontinued. As of August 2013 her hormonal treatment was changed to anastrazole. She had presented to the emergency room in December 2014 with numbness on her right side. At that time there was evidence of facial droop and she also had reported impaired speech. She had been having symptoms for several days. Her blood pressure was significantly elevated. A noncontrast head CT at that time showed no acute findings. At that time it was suspected that she had a TIA and/or possible radiculopathy. There did not appear to be any indication for hospital admission. She started amlodipine for the hypertension and she also started low-dose aspirin. I was contacted at the time, and I also did recommend that she stop the anastrozole. During follow-up the symptoms did resolve. Her subsequent evaluation included echocardiogram which showed mild diffuse hypokinesis of the septum and the anteroseptal segments, but with normal left ventricular ejection fraction at 50-55%. Carotid artery duplex showed minimal scattered plaques and intimal thickening bilaterally with no significant stenosis. MRI of the brain showed a remote lacunes in the left thalamus and left caudate nucleus with mild age-related atrophy and small vessel ischemic changes. 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 There was no evidence of metastatic disease. I had seen her for a follow-up visit in February 2015. At that point she had no residual symptoms, and she then restarted hormonal therapy with exemestane. had seen her for a follow-up visit on 11/14/2017. At that time she was having some new pain in her left lower back and left leg. She had attributed to a pinched nerve , but it was really not getting better. A bone scan on 11/16/2017 showed no evidence of new or progressed osseous metastatic disease. A previously described lesion in the left acetabulum appeared stable compared to 2010. She had further evaluation with MRI of the lumbar spine on 12/15/2017. It showed abnormal marrow signal throughout the thoracic and lumbar vertebral bodies but without enhancement and without associated marrow edema. As such, it appeared unlikely to be due to metastatic disease. There was no evidence of cord or nerve root compression. There were mild to moderate degenerative changes. 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 Considerations included indolent metastatic deposit or indolent primary bone neoplasm. An associated superior pubic ramus pathologic fracture was not excluded. There was no evidence of other metastatic disease on that study. Given those findings in the setting of persistent pain, she was referred to Dr. Ybarra for palliative radiation. She completed treatment to the left hip on 01/27/2018 to a total dose of 3000 cGy. She had further staging with PET/CT on 02/04/2018. It showed a solitary hypermetabolic lytic osseous lesion at the anterior left acetabulum, SUV 4.7. There were no other areas of osseous metastases and there were no soft tissue malignant lesions noted. She then began further systemic therapy with fulvestrant in combination with ribociclib. She also began monthly denosumab injections for the metastatic bone involvement. Restaging PET/CT on 08/12/2018 showed stable findings with FDG avid solitary left acetabular lesion, SUV 4.4. The appearance was unchanged from the previous study in February 2018. There were no new osseous lesions and there was no evidence of other metastatic disease. She continued treatment with fulvestrant in combination with ribociclib. At her follow-up visit in January 2019 the ribociclib and the denosumab were put on hold due to development of a skin eruption involving the lower extremities. The fulvestrant, though, was continued monthly. Her symptoms improved and she then restarted the denosumab injections. As of 04/03/2019 her CA 27.29 had declined to 18.52 U/mL. Her other medical illnesses include hypertension and type 2 diabetes. She also has history of cardiac arrhythmia. She has had previous surgery on her left ear, apparently for hearing loss. She is a nonsmoker. INTERIM HISTORY: As of her follow-up visit in September 2020 there was an increase in her CA 27-29 level to 86 U/mL. However, she appeared stable clinically, and she continued hormonal therapy with fulvestrant injections monthly along with monthly denosumab injections. As of her follow-up visit on 01/12/2021 there is still no significant change in her clinical status, but there was further increase in her CA 27-29 level to 274 U/mL. With that finding, she had restaging PET/CT on 01/17/2021. It showed interval development of multifocal hepatic metastatic disease involving both the left and right hepatic lobes with SUVs in the range of 8.0-8.3. The anterior left acetabular lesion had become FDG negative and was densely sclerotic. Multiple densely sclerotic sternal, thoracic spine and lumbar spine lesions were also FDG negative and consistent with treated osseous metastatic disease. A new lytic superior acetabular lesion had SUV of 5.3 indicative of a new site of metastatic disease. I had then seen her for a follow-up visit to discuss further management of the breast cancer. Prior to starting any treatment, she had additional evaluation with a next generation sequencing study by liquid biopsy. It showed presence of a PIK3CA mutation, indicating potential benefit with alpelisib therapy. With that finding, she restarted treatment with fulvestrant, and on 02/27/2020 when she began treatment with alpelisib at a standard dosage of 300 mg daily. Within 4 days she had to stop treatment due to significant side effects, mainly hyperglycemia and diarrhea. She is seen for a follow-up visit. Since stopping the alpelisib her blood sugars have not been as high, but they are still elevated at times, despite having Levemir added to her treatment regimen, currently at 20 units daily. Her main complaint is that she is tired, she is able to do some light work. ECOG score is 1. Her appetite is not very good. She has not had fever. She sometimes has sweating, mainly with low blood sugars. She says her breathing is better now than it was. She does not complain of cough and she has not been having chest pain. She has not had nausea. She does report having some heartburn and hiccups. She is no longer having diarrhea. She does complain of having some pain in her right lower quadrant area. She has urinary frequency and nocturia and she occasionally has incontinence. She is not having any significant joint or bone pain. She does not complain of headache or dizziness. She sometimes has numbness in her fingers. Medications: AmLODIPine Besylate 1 (5 mg) Tablet Oral daily, Aspirin 1 (325 mg) Tablet Oral daily, Atenolol 1 (50 mg) Tablet Oral daily, Ergocalciferol 1 (61173 Units) Capsule Oral q 4 weeks, GlipiZIDE 1 (5 mg) Tablet Oral b.i.d., Lasix 1 Tablet (of 40 mg) Oral daily, Levemir 20 Unit(s) (of 100 Units/mL) Subcutaneous at bedtime, MetFORMIN HCl 2 (500 mg) Tablet Oral b.i.d. Allergies: Anastrozole, Antihistamines, Chlorpheniramine-type, IVP dye, Lincocin, Penicillins, and Tamoxifen Citrate. Vital Signs: Performed on Mar 25, 2021 14:32 Height - 66.00 in Weight - 179 lbs (LOW) BSA - 1.91 sq.m BMI - 28.89 Temperature - 98.4 F Pulse - 84 /min Respiration - 18 /min BP - 142/82 mm(hg) (HIGH) O2 Sat - 98 % Pain - 0 Fatigue - 8 Physical Examination: Constitutional - She appears somewhat weak generally, Eyes - Sclerae nonicteric. Conjunctivae clear, ENMT - No lesions noted in the oral cavity, Hematologic/Lymphatic - No cervical or clavicular adenopathy, Respiratory - Lungs are clear with good air movement bilaterally, Cardiovascular - Heart rhythm is regular. There is no murmur, gallop, or rub noted, Abdomen - Soft. Liver and spleen are not enlarged. There is no abdominal mass or ascites noted and there is no inguinal adenopathy, Extremities - There is currently no edema, Neurologic - No focal neurologic deficits noted. Lab/Imaging: Test performed on Mar 25, 2021 10:20 Sodium 132 mmol/L Potassium 4.7 mmol/L Chloride 95 mmol/L CO2 22 mmol/L Anion Gap 19.7 BUN 22 mg/dL Creatinine 1.0 mg/dL Cr Clearance (Est) 57.51 mL/min Glucose 307 mg/dL Osmolality - Calculated 289 mOsm/kg Calcium 9.1 mg/dL Protein, Total 7.7 g/dL Albumin 3.7 g/dL Globulin 4.0 g/dL Bilirubin, Total 0.4 mg/dL ALT (SGPT) 51 U/L AST (SGOT) 63 U/L Alkaline Phosphatase 132 IU/L WBC 10.5 10 3/uL RBC 4.61 10 6/uL HGB 13.0 g/dL HCT 40.6 % MCV 88.1 fl MCH 28.2 pg MCHC 32.0 g/dL RDW 13.8 % Platelet Count 316 10 3/cmm MPV 11.0 fL Neutrophils 5.91 10 3/uL Lymphocytes 2.9 10 3/uL Monocytes 1.4 10 3/uL Eosinophils 0.2 10 3/uL Basophils 0.1 10 3/uL Neutrophil % 56.1 % Lymphocyte % 27.1 % Monocyte % 13.4 % Eosinophil % 2.3 % Basophils % 0.5 % NRBC % 0 % Problem List: 1. Metastatic breast cancer, ER/RI positive and HER-2/jesu negative. 2. Hypertension. 3. Type II diabetes. 4. She has a history of cardiac arrhythmia. Problems Addressed with this Encounter and Plan: Patient with metastatic breast cancer, ER/RI positive and HER-2/jesu negative. She had undergone left mastectomy in February 1999. She had local recurrence in the chest wall in March 2010, confirmed by biopsy. At that time there were multiple sites of bone involvement by PET/CT. She had a very good clinical response to treatment with tamoxifen. In September 2013 she developed a hypersensitivity reaction, and her treatment was then changed to anastrozole. In December 2014 when she presented to the emergency room with multiple neurologic symptoms which included numbness in both hands, the right leg, and her tongue. TIA was suspected, though her subsequent evaluation was unremarkable, and I really felt that the symptoms were more likely due to anastrozole. The anastrozole was stopped, and the symptoms completely resolved. As of February 2015 she restarted hormonal therapy with exemestane. She tolerated it with no adverse effects. In January 2018 an MRI of the pelvis was suspicious for a left anterior acetabulum-lateral superior pubic ramus neoplastic lesion. She was given radiation to the left hip area, completed on 01/27/2018 to a total dose of 3000 cGy. Her staging PET/CT on 02/04/2018 showed an FDG avid solitary lytic osseous lesion at the anterior left acetabulum. There were no other areas of abnormal uptake on that study. She began treatment with fulvestrant in combination with ribociclib in February 2018. As of her follow-up visit in January 2019 the ribociclib and the denosumab were put on hold due to development of a skin eruption in the lower extremities. She did require antibiotic therapy for cellulitis, and she also required diuretic therapy for swelling, but it gradually resolved. She had otherwise been stable clinically. She then continued treatment with fulvestrant 500 mg by intramuscular injection monthly together with denosumab injections for the metastatic bone involvement. The ribociclib remained on hold. During subsequent follow-up she has tolerated her treatment very well. Her overall clinical status has remained stable. However, as of her followup visit on 01/12/2021 there was a significant further increase in her CA 27-29 level, up to 274 U/mL compared to 86 U/mL in September 2020 and to 40 U/mL back in April 2020, consistent with progression of the breast cancer. Her restaging PET/CT on 01/17/2021 showed development of multiple FDG avid lesions involving both hepatic lobes, consistent with metastatic disease. There was a new site of lytic bone involvement in the superior left acetabulum. The remainder of the bony lesions were sclerotic and FDG negative, consistent with treated metastatic disease. I had then seen her for a follow-up visit to discuss further management of the breast cancer. Prior to starting any treatment, she had additional evaluation with a next generation sequencing study by liquid biopsy. It showed presence of a PIK3CA mutation, indicating potential benefit with alpelisib therapy. With that finding, she restarted treatment with fulvestrant, and on 02/27/2020 when she began treatment with alpelisib at a standard dosage of 300 mg daily. Within 4 days she had to stop treatment due to significant side effects, mainly hyperglycemia and diarrhea. At this point she is still having some difficulty with her blood sugar control, but not to the extent that she had while taking the alpelisib. The diarrhea has resolved. She does complain of having significant fatigue. I discussed options for further management. She indicates pretty clearly that she wants to maintain a good quality of life and that she would prefer to just go on to hospice as opposed to dealing with significant treatment related side effects. She prefers not to attempt any further treatment with the a pelvis. As such, I will also stop the fulvestrant. I again talked to her about the possibility of having a trial of therapy with Xeloda, which can be started at a reduced dose level and on a 7 days on/7 days off schedule to minimize risk of side effects. She may be willing to consider it, at least for now she wants to focus on getting her blood sugar managed. I am going to go ahead and stop both the Metformin and glipizide and adjust the Levemir dosage based on her blood sugars, which she is going to check twice daily. I will see her again in 1 month. In the meantime, she will also continued denosumab for the metastatic bone involvement and she also will be given a flu shot today. Signed By: Mo Sales M.D. <<Signature on File>>
== END 2021-03-25 09:57 | disposition home or self-care (01) ==
LOC: ONCMED 10:06
PROVIDERS: PCP Family Medicine; Visit Provider Internal Medicine Medical Oncology
DX: Z51.11 Encounter for antineoplastic chemotherapy (principal); C50.812 Malignant neoplasm of overlapping sites of left female breast; Z17.0 Estrogen receptor positive status [ER+]; C79.51 Secondary malignant neoplasm of bone; I10 Essential (primary) hypertension; E11.9 Type 2 diabetes mellitus without complications; I49.9 Cardiac arrhythmia, unspecified; Z79.811 Long term (current) use of aromatase inhibitors; Z79.899 Other long term (current) drug therapy
CPT/HCPCS: 36415; 80053; 81001; 85025; 90471; 90686; 96372; 99215; J0897

== ENCOUNTER 2021-04-22 09:52 | Outpatient (CLI) | payer MEDICARE, OTHER, SELFPAY ==
[2021-04-22 10:27] LABS: Basophils # 0.1 10^3/uL (0.0-0.1); Basophils % 0.5 %; Eosinophils # 0.3 10^3/uL (0.0-0.8); Eosinophils % 2.3 %; Hematocrit 42.4 % (37.0-47.0); Hemoglobin 13.5 g/dL (11.5-15.3); Lymphocytes # 3.4 10^3/uL (0.8-4.8); Lymphocytes % 28.3 %; Mean Corpuscular HGB Conc 31.8 g/dL (30.0-36.0); Mean Corpuscular Hemoglobin 28.5 pg (28.0-34.0); Mean Corpuscular Volume 89.6 fl (81-99); Mean Platelet Volume 10.6 fL (7.4-10.4); Monocytes # 1.5 10^3/uL (0.2-0.9); Monocytes % 12.8 %; Neutrophils # 6.63 10^3/uL (1.8-7.7); Neutrophils % 55.4 %; Nucleated Red Blood Cells % 0 %; Platelet Count 327 10^3/cmm (130-400); Red Blood Count 4.73 10^6/uL (4.1-5.3)
[2021-04-22 10:43] LABS: Alanine Aminotransferase 56 U/L (0-33); Albumin Level 3.4 g/dL (3.5-5.2); Alkaline Phosphatase 176 IU/L (35-105); Anion Gap 17.3 (5-19); Aspartate Amino Transferase 91 U/L (0-32); Blood Urea Nitrogen 17 mg/dL (8-23); Calcium 8.9 mg/dL (8.5-10.5); Carbon Dioxide 26 mmol/L (22-29); Chloride 98 mmol/L (98-107); Globulin 3.9 g/dL (1.3-4.6); Glucose 91 mg/dL (65-115); Osmolality Calculated 285 mOsm/kg (285-295); Potassium 4.3 mmol/L (3.5-5.1); Sodium 137 mmol/L (136-145); Total Bilirubin 0.9 mg/dL (0.15-1.2); Total Protein 7.3 g/dL (6.6-8.7)
[2021-04-22] MEDS: denosumab 120 mg SDV SUBCUT (13:15)
[2021-04-23 11:02] LABS: CA 27.29 1079 U/mL (<38)
--- NOTE | 2021-05-07 17:00 | ONC FU_ITS ---
[facility] Patient Note Patient: Jessenia Mcdowell Unit #: [id number]: 1940 Dictated By: Christine VelazquezDate of Visit: Apr 22, 2021 Onc MED Follow-Up/Prog Note Chief Complaint: Breast cancer. History of Present Illness: Ms Mcdowell is an 80 year-old woman with metastatic breast cancer, ER/IA positive and HER-2/jesu negative. 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 Pathology at that time showed grade 2 infiltrating ductal carcinoma with the largest tumor measuring 1.3 cm. It was reported to be ER positive/IA negative and HER-2/jesu negative. There was no involvement in 16 axillary lymph nodes. She did not receive any adjuvant therapy. She had presented in March 2010 with an erythematous nodule in the upper left chest wall. Excisional biopsy did confirm metastatic adenocarcinoma consistent with metastatic breast cancer. That tumor was ER positive at 93% and IA positive at 100%. It was negative for overexpression of HER-2/jesu by IHC and by FISH. A staging PET/CT showed multiple sites of bone involvement. She was then started on hormonal therapy, initially with Aromasin. She tolerated it very poorly. As of May 2010 her treatment was changed to tamoxifen. She has had a very good response by followup bone scan. She had been tolerating it very well, but in September 2013 she came in with a generalized skin eruption which clinically appeared consistent with hypersensitivity reaction to the tamoxifen, and at that point it was discontinued. As of August 2013 her hormonal treatment was changed to anastrazole. She had presented to the emergency room in December 2014 with numbness on her right side. At that time there was evidence of facial droop and she also had reported impaired speech. She had been having symptoms for several days. Her blood pressure was significantly elevated. A noncontrast head CT at that time showed no acute findings. At that time it was suspected that she had a TIA and/or possible radiculopathy. There did not appear to be any indication for hospital admission. She started amlodipine for the hypertension and she also started low-dose aspirin. Dr Sales was contacted at the time and did recommend that she stop the anastrozole. During follow-up the symptoms did resolve. Her subsequent evaluation included echocardiogram which showed mild diffuse hypokinesis of the septum and the anteroseptal segments, but with normal left ventricular ejection fraction at 50-55%. Carotid artery duplex showed minimal scattered plaques and intimal thickening bilaterally with no significant stenosis. MRI of the brain showed a remote lacunes in the left thalamus and left caudate nucleus with mild age-related atrophy and small vessel ischemic changes. 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 There was no evidence of metastatic disease. Dr Sales had seen her for a follow-up visit in February 2015. At that point she had no residual symptoms, and she then restarted hormonal therapy with exemestane. Dr Sales had seen her for a follow-up visit on 11/14/2017. At that time she was having some new pain in her left lower back and left leg. She had attributed to a pinched nerve , but it was really not getting better. A bone scan on 11/16/2017 showed no evidence of new or progressed osseous metastatic disease. A previously described lesion in the left acetabulum appeared stable compared to 2010. She had further evaluation with MRI of the lumbar spine on 12/15/2017. It showed abnormal marrow signal throughout the thoracic and lumbar vertebral bodies but without enhancement and without associated marrow edema. As such, it appeared unlikely to be due to metastatic disease. There was no evidence of cord or nerve root compression. There were mild to moderate degenerative changes. 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 Considerations included indolent metastatic deposit or indolent primary bone neoplasm. An associated superior pubic ramus pathologic fracture was not excluded. There was no evidence of other metastatic disease on that study. Given those findings in the setting of persistent pain, she was referred to Dr. Ybarra for palliative radiation. She completed treatment to the left hip on 01/27/2018 to a total dose of 3000 cGy. She had further staging with PET/CT on 02/04/2018. It showed a solitary hypermetabolic lytic osseous lesion at the anterior left acetabulum, SUV 4.7. There were no other areas of osseous metastases and there were no soft tissue malignant lesions noted. She then began further systemic therapy with fulvestrant in combination with ribociclib. She also began monthly denosumab injections for the metastatic bone involvement. Restaging PET/CT on 08/12/2018 showed stable findings with FDG avid solitary left acetabular lesion, SUV 4.4. The appearance was unchanged from the previous study in February 2018. There were no new osseous lesions and there was no evidence of other metastatic disease. She continued treatment with fulvestrant in combination with ribociclib. At her follow-up visit in January 2019 the ribociclib and the denosumab were put on hold due to development of a skin eruption involving the lower extremities. The fulvestrant, though, was continued monthly. Her symptoms improved and she then restarted the denosumab injections. As of 04/03/2019 her CA 27.29 had declined to 18.52 U/mL. Her other medical illnesses include hypertension and type 2 diabetes. She also has history of cardiac arrhythmia. She has had previous surgery on her left ear, apparently for hearing loss. She is a nonsmoker. INTERIM HISTORY: As of her follow-up visit in September 2020 there was an increase in her CA 27-29 level to 86 U/mL. However, she appeared stable clinically, and she continued hormonal therapy with fulvestrant injections monthly along with monthly denosumab injections. As of her follow-up visit on 01/12/2021 there is still no significant change in her clinical status, but there was further increase in her CA 27-29 level to 274 U/mL. With that finding, she had restaging PET/CT on 01/17/2021. It showed interval development of multifocal hepatic metastatic disease involving both the left and right hepatic lobes with SUVs in the range of 8.0-8.3. The anterior left acetabular lesion had become FDG negative and was densely sclerotic. Multiple densely sclerotic sternal, thoracic spine and lumbar spine lesions were also FDG negative and consistent with treated osseous metastatic disease. A new lytic superior acetabular lesion had SUV of 5.3 indicative of a new site of metastatic disease. She returned for followup with Dr Henrry cote for review of the PET/CT results and to discuss further management of the breast cancer on January 23, 2021. She was still feeling good generally. In her words she was fit as a fiddle . She had good energy/activity tolerance with ECOG score 0. She was started on alpelisib (Piqray) as her Next generation sequencing from [place] [id number] reported a PIK3CA [id number] mutation that is actionable. This makes her a candidate for the alpelisib. She also had PTEN R15fs and CDH1 F626fs which have no approved FDA therapies. Her tumor mutational burden was 13.4 mut/MB. She was BRCA 1 and 2 - HER-2/jesu negative. She was started on the alpelisib 2 tablets of the 150 mg tablets for a total of 300 mg daily on 02/25/2021. Her last dose of Fosamax and denosumab were also on February 25, 2021. She called in on February 27, 2021 with a fasting glucose of 346 lunch glucose of 305 and bedtime was 421. She was started on Levemir 10 units at that time in addition to her Metformin 1000 mg twice daily and glipizide 5 mg twice daily. She continued to have sporadic elevated glucose in the 400 range up to 472 her Levemir was increased to 20 units and she was brought in to the clinic for a insulin shot with regular insulin 14 units on 09/30/2020. On 03/02/2021 her alpelisib was placed on hold until her blood sugars were controlled. On 03/10/2021 Mrs. Laboy daughter, Charis, called stating that her blood sugars continue to be all over the place . She was advised to eat regular mealtimes and to do sliding scale insulin with 10 units prior to each meal. The alpelisib was stopped within 4 days of initiation due to significant side effects, mainly hyperglycemia and diarrhea. She was seen back today for a follow-up visit. Since stopping the alpelisib her blood sugars have not been as high, but they are still elevated at times, despite having Levemir added to her treatment regimen, currently at 20 units daily. They are improved since her last visit. Overall she is feeling much better. Her only concern today is that she think she is having recurrent bladder infections. She had not had follow-up UA after her last treatment. She is currently taking glipizide 5 mg once daily in the morning, Metformin and shot at night. She is also very concerned that she is scheduled for mammogram on April 21, 2021 and really does not want to pursue this. She decided that she does not want to treat the breast cancer and will not take anymore of the alpelisib. She states she has had a good life and just wants to feel good for what ever time she has left. We discussed at length her decision and support that fully and we will not pursue any further mammogram or imaging unless she decides otherwise. She states she has been feeling better in general. Has been out working some in her yard just small increments but this is a change for her she is not been out in her yard for a couple of months. She has had no further diarrhea. She is having urinary frequency hesitancy and significant odor per her daughter. She is had some trouble with control as well. Her ECOG is 2. She is needing refills on several medications and we will do this for her. She requested that we leave the instructions as per the bottle in case she needs to adjust them later and so she will run out of medications early. She and her daughter both verbalized how she is currently taking them and have full understanding of her current medication regimen. Past Medical History: Hypertension Osteoarthritis Overactive bladder Type II diabetes Cancer (left breast) in 1998 (Treated) Past Surgical History: Flu vaccine 2020 in 2020 Covid vaccine #1 moderna in 2020 Flu vaccine 2020 in 2019 - right deltoid Flu vaccine in 2019 - right deltoid Pneumonia vaccine in 2019 Flu Vaccine in 2018 Colonoscopy in 2009 Breast surgery in 1998 D & C in 1998 Ear sugery in 1992 Cholecystectomy in 1977 Tonsillectomy in 1958 Allergies: Anastrozole, Antihistamines, Chlorpheniramine-type, IVP dye, Lincocin, Penicillins, and Tamoxifen Citrate. Medications: AmLODIPine Besylate 1 (5 mg) Tablet Oral daily Aspirin 1 (325 mg) Tablet Oral daily Atenolol 1 (50 mg) Tablet Oral daily Ergocalciferol 1 (48083 Units) Capsule Oral q 4 weeks GlipiZIDE 1 (5 mg) Tablet Oral b.i.d. Lasix 1 Tablet (of 40 mg) Oral daily Levemir 20 Unit(s) (of 100 Units/mL) Subcutaneous at bedtime MetFORMIN HCl 2 (500 mg) Tablet Oral b.i.d. Family History: Ms. Mcdowell's mother at age 53: cancer history consists of Cervical cancer while other medical history includes coronary artery disease (cause of ) and diabetes. Ms. Mcdowell's father at age 69: Heart disease, and Lupus. Ms. Mcdowell has 2 sisters: 2 unknown. Ms. Mcdowell's first sister's medical history includes diabetes. Another sister's medical history includes diabetes and Heart disease. She has 1 son who is : medical history includes Cardiomyopathy. Social History: Ms. Mcdowell is and she is retired. Ms. Mcdowell has never smoked. She has no history of drinking. Ms. Mcdowell reports the following support systems: lives with spouse, significant other, family, or friends, lives in own house, and adequate transportation available for expected visits. Her diet consists of regular meals. She indicates her activity level as: light exercise. Review Of Symptoms: <See Above> Vital Signs: Performed on Apr 22, 2021 12:26 Height - 66.00 in Weight - 178.6 lbs (LOW) BSA - 1.91 sq.m BMI - 28.83 Temperature - 97.7 F (LOW) Pulse - 85 /min Respiration - 18 /min BP - 148/84 mm(hg) (HIGH) O2 Sat - 95 % (LOW) Pain - 0 Fatigue - 2,2 - Ambulatory/capable of all self-care, unable to perform any work activities. Up and about more than 50% of waking hours. (ECOG) Physical Examination: Constitutional Alert, oriented, no acute distress. Skin pink, warm and dry. Head Normocephalic; atraumatic. Eyes Conjunctivae and sclerae are clear and without icterus. Pupils are reactive and equal. Neck Supple without masses or thyromegaly. No jugular venous distension. Hematologic/Lymphatic No petechiae or purpura. No tender or palpable lymph nodes in the cervical or supraclavicular areas. Respiratory Lungs are clear to auscultation without rhonchi or wheezing. Cardiovascular Regular rate and rhythm of heart without murmurs,clicks, gallops or rubs. Abdomen Non-tender, non-distended, no masses, ascites. No guarding or rebound tenderness. No pulsatile masses. Back/Spine Non-tender to palpation. Extremities No visible deformities, no cyanosis, clubbing or edema. Musculoskeletal No tenderness or swelling, normal range of motion without obvious weakness. Integumentary No rashes or lesions. Neurologic No sensory or motor deficits, normal cerebellar function, normal for her gait. Psychiatric Alert and oriented times three. Coherent speech. Verbalizes understanding of our discussions today. Laboratory:Test performed on Apr 22, 2021 10:15 Sodium 137 mmol/L Potassium 4.3 mmol/L Chloride 98 mmol/L CO2 26 mmol/L Anion Gap 17.3 BUN 17 mg/dL Creatinine 0.7 mg/dL Cr Clearance (Est) 81.98 mL/min Glucose 91 mg/dL Osmolality - Calculated 285 mOsm/kg Calcium 8.9 mg/dL Protein, Total 7.3 g/dL Albumin 3.4 g/dL Globulin 3.9 g/dL Bilirubin, Total 0.9 mg/dL ALT (SGPT) 56 U/L AST (SGOT) 91 U/L Alkaline Phosphatase 176 IU/L WBC 12.0 10 3/uL RBC 4.73 10 6/uL HGB 13.5 g/dL HCT 42.4 % MCV 89.6 fl MCH 28.5 pg MCHC 31.8 g/dL RDW 14.0 % Platelet Count 327 10 3/cmm MPV 10.6 fL Neutrophils 6.63 10 3/uL Lymphocytes 3.4 10 3/uL Monocytes 1.5 10 3/uL Eosinophils 0.3 10 3/uL Basophils 0.1 10 3/uL Neutrophil % 55.4 % Lymphocyte % 28.3 % Monocyte % 12.8 % Eosinophil % 2.3 % Basophils % 0.5 % NRBC % 0 % CA 27.29 1079 U/mL Test performed on Mar 25, 2021 10:32 Ua Color Yellow Ua Appearance Cloudy Ua pH 7 Ua Specific [place] 1.020 Ua Glucose 4+ Ua Ketones 1+ Ua Protein 1+ Ua Blood Neg Ua Bilirubin 2+ Ua Urobilinogen 4 mg/dL Ua Nitrites Negative Ua Leukocyte Esterase 2+ Ua Micro: Trans Epith Cells 5-10 /hpf Ua Micro: Uric Acid Crystals TOO NUMEROUS TO CNT /hpf Ua Micro: WBC 5-10 /hpf Ua Micro: RBC 0-4 /hpf Ua Micro: Squam Epith Cells 5-10 /hpf Ua Micro: Bacteria TRACE /hpf Ua Micro: Mucous TRACE /hpf Ua Micro: Other Crystals CYSTINE 0-4 /hpf Test performed on Feb 25, 2021 08:55 Est Avg Glucose (eAG) 171 mg/dL Hemoglobin A1C % 7.6 % Impression: 1. Metastatic breast cancer, ER/IA positive and HER-2/jesu negative. 2. Hypertension. 3. Type II diabetes. 4. She has a history of cardiac arrhythmia. Plan/Problems Addressed at this Visit: Patient with metastatic breast cancer, ER/IA positive and HER-2/jesu negative. She had undergone left mastectomy in February 1999. She had local recurrence in the chest wall in March 2010, confirmed by biopsy. At that time there were multiple sites of bone involvement by PET/CT. She had a very good clinical response to treatment with tamoxifen. In September 2013 she developed a hypersensitivity reaction, and her treatment was then changed to anastrozole. In December 2014 when she presented to the emergency room with multiple neurologic symptoms which included numbness in both hands, the right leg, and her tongue. TIA was suspected, though her subsequent evaluation was unremarkable, and I really felt that the symptoms were more likely due to anastrozole. The anastrozole was stopped, and the symptoms completely resolved. As of February 2015 she restarted hormonal therapy with exemestane. She tolerated it with no adverse effects. In January 2018 an MRI of the pelvis was suspicious for a left anterior acetabulum-lateral superior pubic ramus neoplastic lesion. She was given radiation to the left hip area, completed on 01/27/2018 to a total dose of 3000 cGy. Her staging PET/CT on 02/04/2018 showed an FDG avid solitary lytic osseous lesion at the anterior left acetabulum. There were no other areas of abnormal uptake on that study. She began treatment with fulvestrant in combination with ribociclib in February 2018. As of her follow-up visit in January 2019 the ribociclib and the denosumab were put on hold due to development of a skin eruption in the lower extremities. She did require antibiotic therapy for cellulitis, and she also required diuretic therapy for swelling, but it gradually resolved. She had otherwise been stable clinically. She then continued treatment with fulvestrant 500 mg by intramuscular injection monthly together with denosumab injections for the metastatic bone involvement. The ribociclib remained on hold. During subsequent follow-up she has tolerated her treatment very well. Her overall clinical status has remained stable. However, as of her followup visit on 01/12/2021 there was a significant further increase in her CA 27-29 level, up to 274 U/mL compared to 86 U/mL in September 2020 and to 40 U/mL back in April 2020, consistent with progression of the breast cancer. Her restaging PET/CT on 01/17/2021 showed development of multiple FDG avid lesions involving both hepatic lobes, consistent with metastatic disease. There was a new site of lytic bone involvement in the superior left acetabulum. The remainder of the bony lesions were sclerotic and FDG negative, consistent with treated metastatic disease. Dr Sales had then seen her for a follow-up visit to discuss further management of the breast cancer. Prior to starting any treatment, she had additional evaluation with a next generation sequencing study by liquid biopsy. It showed presence of a PIK3CA mutation, indicating potential benefit with alpelisib therapy. With that finding, she restarted treatment with fulvestrant, and on 02/27/2020 when she began treatment with alpelisib at a standard dosage of 300 mg daily. Within 4 days she had to stop treatment due to significant side effects, mainly hyperglycemia and diarrhea. At this point she is still having some difficulty with her blood sugar control, but not to the extent that she had while taking the alpelisib. The diarrhea has resolved. She does complain of having significant fatigue. Dr Sales has discussed options for further management. She indicates pretty clearly that she wants to maintain a good quality of life and that she would prefer to just go on to hospice as opposed to dealing with significant treatment related side effects. She prefers not to attempt any further treatment with the a pelvis. She will continued denosumab for the metastatic bone involvement. A. Proceed with supportive care as needed. She does not require any pain medication at this point. B. She will continue her current regimen glipizide 5 mg the morning, metformin 500 mg at night and Levemir 20 units at night. She will continue checking her blood sugars twice a day 2 to 3 days a week. C. We will go ahead and resume Bactrim DS 1 twice daily for 14 days for recurrent UTI. She may need to be on a low maintenance dose indefinitely but will check her UA with C&S if indicated in 3 weeks after she has had time to complete the full course of Bactrim. D. We will cancel all imaging and not request any further follow-up breast imaging as she does not want to pursue treatment of her breast cancer any longer even if there was a new diagnosis. She is not interested in pursuing Xeloda at this time. E. Labs from today were reviewed in detail discussed with Ms. mcdowell and a copy was given to her. WBC is 12, hemoglobin 13.5, platelets 1 27,000, ANC 6630. But at 0.3 calcium 8.9 random glucose 91 LFTs are slightly elevated with an ALT of 56 AST of 91 and alk phos is 196. Her weight is stable at 178.6. F. We will plan to see her back in 1 month with repeat CBC CMP. G. Mrs. Mcdowell instructed to contact us in interim should questions or problems arise. H. She does not want to pursue any further treatment of the breast cancer including any kind of breast imaging at this time. I. She is willing to proceed with the denosumab monthly. She is due for her dose today. Her last dose was on March 25, 2021. Signed By: Christine Velazquez-, AOCNP Mo Sales MD <<Signature on File>>
== END 2021-04-22 09:53 | disposition home or self-care (01) ==
LOC: ONCMED 09:53
PROVIDERS: PCP Family Medicine; Visit Provider Nurse Practitioner
DX: Z51.11 Encounter for antineoplastic chemotherapy (principal); C50.812 Malignant neoplasm of overlapping sites of left female breast; Z17.0 Estrogen receptor positive status [ER+]; C79.51 Secondary malignant neoplasm of bone; R60.0 Localized edema; Z79.811 Long term (current) use of aromatase inhibitors
CPT/HCPCS: 36415; 80053; 85025; 86300; 96372; 99215; J0897

== ENCOUNTER 2021-05-13 08:44 | Outpatient (CLI) | payer MEDICARE, OTHER, SELFPAY ==
[2021-05-13 09:26] LABS: Add Urine Microscopic? YES; Bilirubin Urine 1+ (Negative); Blood Urine Neg (Negative); Glucose Urine UA Norm (Normal); Ketones Urine Negative (Negative); Leukocyte Esterase Urine Trace (Negative); Nitrate Urine Negative (Negative); Protein Urine Neg (Negative); Urine Appearance Clear (CLEAR); Urine Color Dark Yellow (Yellow); Urobilinogen Urine 1 mg/dL (Negative); pH Urine 5 (5-7)
[2021-05-13 09:38] LABS: Add Urine Culture? No; Bacteria Urine TRACE /hpf; Coarse Granular Casts Urine 0-4 /lpf; Hyaline Casts Urine 0-4 /lpf; WBC Urine 0-4 /hpf (0-5)
== END 2021-05-13 08:45 | disposition home or self-care (01) ==
PROVIDERS: PCP Family Medicine; Visit Provider Internal Medicine Medical Oncology
DX: C50.812 Malignant neoplasm of overlapping sites of left female breast (principal); Z17.0 Estrogen receptor positive status [ER+]; C79.51 Secondary malignant neoplasm of bone; R60.0 Localized edema; N32.81 Overactive bladder; Z79.811 Long term (current) use of aromatase inhibitors; Z79.899 Other long term (current) drug therapy
CPT/HCPCS: 81001; 87086

== ENCOUNTER 2021-05-20 07:59 | Outpatient (CLI) | payer MEDICARE, OTHER, SELFPAY ==
[2021-05-20 08:37] LABS: Basophils # 0.1 10^3/uL (0.0-0.1); Basophils % 0.7 %; Eosinophils # 0.2 10^3/uL (0.0-0.8); Eosinophils % 1.7 %; Hematocrit 42.6 % (37.0-47.0); Hemoglobin 13.6 g/dL (11.5-15.3); Lymphocytes # 2.6 10^3/uL (0.8-4.8); Lymphocytes % 24.4 %; Mean Corpuscular HGB Conc 31.9 g/dL (30.0-36.0); Mean Corpuscular Hemoglobin 28.6 pg (28.0-34.0); Mean Corpuscular Volume 89.7 fl (81-99); Mean Platelet Volume 10.9 fL (7.4-10.4); Monocytes # 1.5 10^3/uL (0.2-0.9); Monocytes % 13.8 %; Neutrophils # 6.22 10^3/uL (1.8-7.7); Neutrophils % 58.9 %; Nucleated Red Blood Cells % 0 %; Platelet Count 282 10^3/cmm (130-400); Red Blood Count 4.75 10^6/uL (4.1-5.3); Red Cell Distribution Width 15.8 % (12.1-15.1); White Blood Count 10.6 10^3/uL (4.0-10.0)
[2021-05-20 08:55] LABS: Alanine Aminotransferase 61 U/L (0-33); Albumin Level 3.1 g/dL (3.5-5.2); Alkaline Phosphatase 286 IU/L (35-105); Anion Gap 21.4 (5-19); Aspartate Amino Transferase 141 U/L (0-32); Blood Urea Nitrogen 16 mg/dL (8-23); Calcium 8.2 mg/dL (8.5-10.5); Carbon Dioxide 21 mmol/L (22-29); Chloride 102 mmol/L (98-107); Globulin 3.7 g/dL (1.3-4.6); Glucose 108 mg/dL (65-115); Osmolality Calculated 292 mOsm/kg (285-295); Potassium 4.4 mmol/L (3.5-5.1); Sodium 140 mmol/L (136-145); Total Bilirubin 1.4 mg/dL (0.15-1.2); Total Protein 6.8 g/dL (6.6-8.7)
[2021-05-20] MEDS: denosumab 120 mg SDV SUBCUT (09:52)
--- NOTE | 2021-05-20 18:47 | ONC FU_ITS ---
Dr. Sales Patient Follow-Up Note Patient: Jessenia Navarro Unit #: [id number]: 1940 Dicatated By: Mo Sales M.D.Date of Visit:May 20, 2021 Onc Med Follow-up/Prog Note Chief Complaint: Breast cancer. History of Present Illness: This is an 80 year-old woman with metastatic breast cancer, ER/VA positive and HER-2/jesu negative. 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 Pathology at that time showed grade 2 infiltrating ductal carcinoma with the largest tumor measuring 1.3 cm. It was reported to be ER positive/VA negative and HER-2/jesu negative. There was no involvement in 16 axillary lymph nodes. She did not receive any adjuvant therapy. She had presented in March 2010 with an erythematous nodule in the upper left chest wall. Excisional biopsy did confirm metastatic adenocarcinoma consistent with metastatic breast cancer. That tumor was ER positive at 93% and VA positive at 100%. It was negative for overexpression of HER-2/jesu by IHC and by FISH. A staging PET/CT showed multiple sites of bone involvement. She was then started on hormonal therapy, initially with Aromasin. She tolerated it very poorly. As of May 2010 her treatment was changed to tamoxifen. She has had a very good response by followup bone scan. She had been tolerating it very well, but in September 2013 she came in with a generalized skin eruption which clinically appeared consistent with hypersensitivity reaction to the tamoxifen, and at that point it was discontinued. As of August 2013 her hormonal treatment was changed to anastrazole. She had presented to the emergency room in December 2014 with numbness on her right side. At that time there was evidence of facial droop and she also had reported impaired speech. She had been having symptoms for several days. Her blood pressure was significantly elevated. A noncontrast head CT at that time showed no acute findings. At that time it was suspected that she had a TIA and/or possible radiculopathy. There did not appear to be any indication for hospital admission. She started amlodipine for the hypertension and she also started low-dose aspirin. I was contacted at the time, and I also did recommend that she stop the anastrozole. During follow-up the symptoms did resolve. Her subsequent evaluation included echocardiogram which showed mild diffuse hypokinesis of the septum and the anteroseptal segments, but with normal left ventricular ejection fraction at 50-55%. Carotid artery duplex showed minimal scattered plaques and intimal thickening bilaterally with no significant stenosis. MRI of the brain showed a remote lacunes in the left thalamus and left caudate nucleus with mild age-related atrophy and small vessel ischemic changes. 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 There was no evidence of metastatic disease. I had seen her for a follow-up visit in February 2015. At that point she had no residual symptoms, and she then restarted hormonal therapy with exemestane. had seen her for a follow-up visit on 11/14/2017. At that time she was having some new pain in her left lower back and left leg. She had attributed to a pinched nerve , but it was really not getting better. A bone scan on 11/16/2017 showed no evidence of new or progressed osseous metastatic disease. A previously described lesion in the left acetabulum appeared stable compared to 2010. She had further evaluation with MRI of the lumbar spine on 12/15/2017. It showed abnormal marrow signal throughout the thoracic and lumbar vertebral bodies but without enhancement and without associated marrow edema. As such, it appeared unlikely to be due to metastatic disease. There was no evidence of cord or nerve root compression. There were mild to moderate degenerative changes. 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 Considerations included indolent metastatic deposit or indolent primary bone neoplasm. An associated superior pubic ramus pathologic fracture was not excluded. There was no evidence of other metastatic disease on that study. Given those findings in the setting of persistent pain, she was referred to Dr. Ybarra for palliative radiation. She completed treatment to the left hip on 01/27/2018 to a total dose of 3000 cGy. She had further staging with PET/CT on 02/04/2018. It showed a solitary hypermetabolic lytic osseous lesion at the anterior left acetabulum, SUV 4.7. There were no other areas of osseous metastases and there were no soft tissue malignant lesions noted. She then began further systemic therapy with fulvestrant in combination with ribociclib. She also began monthly denosumab injections for the metastatic bone involvement. Restaging PET/CT on 08/12/2018 showed stable findings with FDG avid solitary left acetabular lesion, SUV 4.4. The appearance was unchanged from the previous study in February 2018. There were no new osseous lesions and there was no evidence of other metastatic disease. She continued treatment with fulvestrant in combination with ribociclib. At her follow-up visit in January 2019 the ribociclib and the denosumab were put on hold due to development of a skin eruption involving the lower extremities. The fulvestrant, though, was continued monthly. Her symptoms improved and she then restarted the denosumab injections. As of 04/03/2019 her CA 27.29 had declined to 18.52 U/mL. Her other medical illnesses include hypertension and type 2 diabetes. She also has history of cardiac arrhythmia. She has had previous surgery on her left ear, apparently for hearing loss. She is a nonsmoker. INTERIM HISTORY: As of her follow-up visit in September 2020 there was an increase in her CA 27-29 level to 86 U/mL. However, she appeared stable clinically, and she continued hormonal therapy with fulvestrant injections monthly along with monthly denosumab injections. As of her follow-up visit on 01/12/2021 there is still no significant change in her clinical status, but there was further increase in her CA 27-29 level to 274 U/mL. With that finding, she had restaging PET/CT on 01/17/2021. It showed interval development of multifocal hepatic metastatic disease involving both the left and right hepatic lobes with SUVs in the range of 8.0-8.3. The anterior left acetabular lesion had become FDG negative and was densely sclerotic. Multiple densely sclerotic sternal, thoracic spine and lumbar spine lesions were also FDG negative and consistent with treated osseous metastatic disease. A new lytic superior acetabular lesion had SUV of 5.3 indicative of a new site of metastatic disease. I had then seen her for a follow-up visit to discuss further management of the breast cancer. Prior to starting any treatment, she had additional evaluation with a next generation sequencing study by liquid biopsy. It showed presence of a PIK3CA mutation, indicating potential benefit with alpelisib therapy. With that finding, she restarted treatment with fulvestrant, and on 02/27/2020 when she began treatment with alpelisib at a standard dosage of 300 mg daily. Within 4 days she had to stop treatment due to significant side effects, mainly hyperglycemia and diarrhea. She was then seen again on 03/25/2021. She did not want to attempt any further treatment with alpelisib. I did talk to her about the possibility of beginning a trial of chemotherapy with Xeloda, but at that point she just wanted some additional time off treatment. She is seen now for a follow-up visit. She has been feeling better generally, though she has been a little draggy. She is doing some light work at home. ECOG score is 1. Her appetite has not been very good, but she says she is eating. Her blood sugar control is much better. She has not had fever or night sweats. She does report having some sinus drainage. She has not had sore mouth or throat. She does not complain of cough, and she has not been having shortness of breath or chest pain. She has been having heartburn and she also reports occasional vomiting. She says her bowels have not been working properly. She has noted improvement in her bladder function. She has no significant joint or bone pain, but her daughter indicates that she seems to be limping a little more. She does not complain of headache or dizziness. She sometimes has numbness in her right hand. Medications: AmLODIPine Besylate 1 (5 mg) Tablet Oral daily, Aspirin 1 (325 mg) Tablet Oral daily, Atenolol 1 (50 mg) Tablet Oral daily, Ergocalciferol 1 (51524 Units) Capsule Oral q 4 weeks, GlipiZIDE 1 (5 mg) Tablet Oral b.i.d., Lasix 1 Tablet (of 40 mg) Oral daily, Levemir 20 Unit(s) (of 100 Units/mL) Subcutaneous at bedtime, MetFORMIN HCl 2 (500 mg) Tablet Oral b.i.d. Allergies: Anastrozole, Antihistamines, Chlorpheniramine-type, IVP dye, Lincocin, Penicillins, and Tamoxifen Citrate. Vital Signs: Performed on May 20, 2021 11:37 Height - 66.00 in Weight - 179.2 lbs (HIGH) BSA - 1.91 sq.m BMI - 28.92 Temperature - 98.3 F (LOW) Pulse - 96 /min Respiration - 16 /min BP - 144/84 mm(hg) (HIGH) O2 Sat - 99 % Pain - 0 Fatigue - 1 Physical Examination: Constitutional - She appears somewhat weak generally, Eyes - Sclerae nonicteric. Conjunctivae clear, ENMT - No lesions noted in the oral cavity, Hematologic/Lymphatic - No cervical, clavicular, or axillary adenopathy, Respiratory - Lungs are clear with good air movement bilaterally, Cardiovascular - Heart rhythm is regular. There is no murmur, gallop, or rub noted, Abdomen - Moderately distended. Liver and spleen are not enlarged. There is no abdominal mass noted. There may be some ascites. There is no inguinal adenopathy, Extremities - There is mild lower extremity edema, Neurologic - No focal neurologic deficits noted. Lab/Imaging: Test performed on May 20, 2021 08:25 Sodium 140 mmol/L Potassium 4.4 mmol/L Chloride 102 mmol/L CO2 21 mmol/L Anion Gap 21.4 BUN 16 mg/dL Creatinine 0.6 mg/dL Cr Clearance (Est) 95.96 mL/min Glucose 108 mg/dL Osmolality - Calculated 292 mOsm/kg Calcium 8.2 mg/dL Protein, Total 6.8 g/dL Albumin 3.1 g/dL Globulin 3.7 g/dL Bilirubin, Total 1.4 mg/dL ALT (SGPT) 61 U/L AST (SGOT) 141 U/L Alkaline Phosphatase 286 IU/L WBC 10.6 10 3/uL RBC 4.75 10 6/uL HGB 13.6 g/dL HCT 42.6 % MCV 89.7 fl MCH 28.6 pg MCHC 31.9 g/dL RDW 15.8 % Platelet Count 282 10 3/cmm MPV 10.9 fL Neutrophils 6.22 10 3/uL Lymphocytes 2.6 10 3/uL Monocytes 1.5 10 3/uL Eosinophils 0.2 10 3/uL Basophils 0.1 10 3/uL Neutrophil % 58.9 % Lymphocyte % 24.4 % Monocyte % 13.8 % Eosinophil % 1.7 % Basophils % 0.7 % NRBC % 0 % Problem List: 1. Metastatic breast cancer, ER/VA positive and HER-2/jesu negative. 2. Hypertension. 3. Type II diabetes. 4. She has a history of cardiac arrhythmia. Problems Addressed with this Encounter and Plan: Patient with metastatic breast cancer, ER/VA positive and HER-2/jesu negative. She had undergone left mastectomy in February 1999. She had local recurrence in the chest wall in March 2010, confirmed by biopsy. At that time there were multiple sites of bone involvement by PET/CT. She had a very good clinical response to treatment with tamoxifen. In September 2013 she developed a hypersensitivity reaction, and her treatment was then changed to anastrozole. In December 2014 when she presented to the emergency room with multiple neurologic symptoms which included numbness in both hands, the right leg, and her tongue. TIA was suspected, though her subsequent evaluation was unremarkable, and I really felt that the symptoms were more likely due to anastrozole. The anastrozole was stopped, and the symptoms completely resolved. As of February 2015 she restarted hormonal therapy with exemestane. She tolerated it with no adverse effects. In January 2018 an MRI of the pelvis was suspicious for a left anterior acetabulum-lateral superior pubic ramus neoplastic lesion. She was given radiation to the left hip area, completed on 01/27/2018 to a total dose of 3000 cGy. Her staging PET/CT on 02/04/2018 showed an FDG avid solitary lytic osseous lesion at the anterior left acetabulum. There were no other areas of abnormal uptake on that study. She began treatment with fulvestrant in combination with ribociclib in February 2018. As of her follow-up visit in January 2019 the ribociclib and the denosumab were put on hold due to development of a skin eruption in the lower extremities. She did require antibiotic therapy for cellulitis, and she also required diuretic therapy for swelling, but it gradually resolved. She had otherwise been stable clinically. She then continued treatment with fulvestrant 500 mg by intramuscular injection monthly together with denosumab injections for the metastatic bone involvement. The ribociclib remained on hold. During subsequent follow-up she has tolerated her treatment very well. Her overall clinical status has remained stable. However, as of her followup visit on 01/12/2021 there was a significant further increase in her CA 27-29 level, up to 274 U/mL compared to 86 U/mL in September 2020 and to 40 U/mL back in April 2020, consistent with progression of the breast cancer. Her restaging PET/CT on 01/17/2021 showed development of multiple FDG avid lesions involving both hepatic lobes, consistent with metastatic disease. There was a new site of lytic bone involvement in the superior left acetabulum. The remainder of the bony lesions were sclerotic and FDG negative, consistent with treated metastatic disease. I had then seen her for a follow-up visit to discuss further management of the breast cancer. Prior to starting any treatment, she had additional evaluation with a next generation sequencing study by liquid biopsy. It showed presence of a PIK3CA mutation, indicating potential benefit with alpelisib therapy. With that finding, she restarted treatment with fulvestrant, and on 02/27/2020 when she began treatment with alpelisib at a standard dosage of 300 mg daily. Within 4 days she had to stop treatment due to significant side effects, mainly hyperglycemia and diarrhea. She opted not to attempt any further treatment with the alpelisib. As yet she has had no further treatment for the breast cancer. At this point she still has reasonably good performance status, but she has developed some new GI symptoms and she now has mildly elevated bilirubin and liver enzymes, almost certainly due to progression of the metastatic disease in her liver. I again talked her about the possibility of having further treatment with Xeloda, which would be administered at a reduced dosage on a 7 days on/7 days off schedule. I reviewed potential side effects, including nausea/vomiting, mucositis, diarrhea, weakness/fatigue, low blood counts, and hand/foot syndrome, among others. She had pretty well decided, though, that she did not want any further treatment for the breast cancer. As such, she will be given 1 final injection of denosumab today for the metastatic bone involvement. Her management will otherwise be symptomatic/supportive. I discussed hospice, and she is agreeable to hospice referral. I will have her start metoclopramide 5 mg 4 times daily and pantoprazole 40 mg daily for her GI symptoms. I will plan to see her again on an as-needed basis. Signed By: Mo Sales M.D. <<Signature on File>>
== END 2021-05-20 08:00 | disposition home or self-care (01) ==
LOC: ONCMED 08:02
PROVIDERS: PCP Family Medicine; Visit Provider Internal Medicine Medical Oncology
DX: Z51.11 Encounter for antineoplastic chemotherapy (principal); I10 Essential (primary) hypertension; E11.9 Type 2 diabetes mellitus without complications; C79.51 Secondary malignant neoplasm of bone; C50.919 Malignant neoplasm of unspecified site of unspecified female breast; Z17.0 Estrogen receptor positive status [ER+]; C22.0 Liver cell carcinoma
CPT/HCPCS: 36415; 80053; 85025; 96372; 99215; J0897